=== PATIENT | female | born 1965 | race Caucasian/White ===

== ENCOUNTER 2017-05-05 11:32 | Inpatient (IN) | payer MEDICARE, OTHER ==
[~2017-05-05] VITALS: Ht 160 cm; Wt 75.0 kg
[~2017-05-05 11:32] MED LIST: AUG875 PO; CHOL20002 PO; LEVO25TA9 PO; MULT-853 PO; VITA400C15 PO
[2017-05-05] MEDS ORDERED: SOD CHLORIDE 0.9% 1,000 ML IV ONE (12:00)
[2017-05-05 12:10] LABS: ADD SCAN DIFF NO
[2017-05-05 12:13] LABS: BASOPHIL # 0.1 10^3/ul (0.0-0.1); BASOPHILS % 0.8 % (0.0-2.0); EOSINOPHILS # 0.2 10^3/ul (0.0-0.5); EOSINOPHILS % 2.6 % (0.0-7.0); HEMOGLOBIN 14.4 g/dl (12.0-16.0); LYMPHOCYTES # 1.2 10^3/ul (0.8-2.9); LYMPHOCYTES % 16.1 % (15.0-51.0); MEAN CORPUSCULAR HEMOGLOBIN 29.3 pg (29.0-33.0); MEAN CORPUSCULAR HGB CONC 34.3 g/dl (32.0-37.0); MEAN CORPUSCULAR VOLUME 85.4 fl (82.0-101.0); MEAN PLATELET VOLUME 10.6 fl (7.4-10.4); MONOCYTE # 0.5 10^3/ul (0.3-0.9); MONOCYTES % 7.2 % (0.0-11.0); NEUTROPHIL # 5.3 10^3/ul (1.6-7.5); NEUTROPHILS % 72.3 % (39.0-77.0); PLATELET COUNT 178 10^3/UL (140-415); RED BLOOD COUNT 4.92 10^6/ul (4.20-5.40); RED CELL DISTRIBUTION WIDTH 14.1 % (11.5-14.5); WHITE BLOOD COUNT 7.3 10^3/ul (4.8-10.8)
--- NOTE | 2017-05-05 12:25 | ERA ---
ER Documentation Chief Complaint Date/Time DATE: 05/05/17 TIME: 12:22 Chief Complaint SOB, ANXIOUS AND DIZZINESS STARTED TODAY HPI Patient is a 51-year-old female who presents with sudden onset, constant, moderate shortness of breath for 1 hour. The patient states that since Saturday she has had lightheadedness and dyspnea on exertion. She denies cough, fever, chest pain, back pain. She was noted to be breathing heavily in temple and was brought to the emergency department. ROS All systems reviewed and are negative except as per history of present illness. Medications Home Meds Reported Medications Levothyroxine Sodium* (Levothyroxine Sodium*) 75 Mcg Tablet, 75 MCG PO BEFORE BREAKFAST, #30 TAB 05/05/17 [Revlimid 5MG] No Conflict Check, 5 MG PO DAILY 05/05/17 Cholecalciferol (Vitamin D3) 400 Unit Tablet, 400 UNIT PO DAILY, TAB 05/05/17 Vitamin E* (Vitamin E*) 400 Unit Capsule, 400 UNIT PO DAILY, CAP 01/19/16 Discontinued Reported Medications Lenalidomide (REVLIMID) 2.5 Mg Capsule, 5 MG PO, CAP 05/05/17 Multivits-Min/Iron/FA/Lutein (Centrum Silver Women Tablet) 1 Each Tablet, 1 EACH PO DAILY, TAB 01/19/16 Cholecalciferol (Vitamin D3) (Vitamin D-3) 2,000 Unit Tablet, 2000 UNIT PO DAILY , TAB 01/19/16 Amoxicillin-Clavulanate K* (Augmentin*) 875 Mg Tab, 875 MG PO Q12 11/18/13 Levothyroxine Sodium (Levothroid) 25 Mcg Tablet, 25 MCG PO DAILY 11/17/13 Allergies Allergies: Coded Allergies: No Known Allergy (Unverified , 05/05/17) PMhx/Soc Past medical history: Unknown neck tumor Past surgical history: Resection of unknown neck tumor Social history: Denies tobacco or alcohol, lives in a intermediate History of Surgery: Yes (NECK SX) Anesthesia Reaction: No Hx Neurological Disorder: No Hx Respiratory Disorders: No Hx Cardiac Disorders: No Hx Psychiatric Problems: No Hx Miscellaneous Medical Probl: Yes (NECK CA) Hx Alcohol Use: No Hx Substance Use: No Hx Tobacco Use: No Smoking Status: Never smoker FmHx Family History: No coronary disease, No diabetes Physical Exam Vitals Vital Signs Date Time Temp Pulse Resp B/P Pulse Ox O2 Delivery O2 Flow Rate FiO2 05/05/17 12:45 101 20 93 Nasal Cannula 2.0 05/05/17 12:45 2.0 05/05/17 12:30 102 18 120/94 96 Nasal Cannula 3.0 05/05/17 12:03 Nasal Cannula 3 05/05/17 11:38 99.2 109 20 140/101 90 Physical Exam Const: Alert, no acute distress Head: Atraumatic Eyes: Normal Conjunctiva, no pallor, no icterus ENT: Normal External Ears, Nose and Mouth. Moist mucous membranes Neck: Full range of motion..~ No meningismus. No JVD Resp: Tachypnea, clear to auscultation bilaterally, no wheezes, no rales Cardio: Mild tachycardia, regular rhythm, no murmurs Abd: Soft, non tender, non distended. Skin: No petechiae or rashes Back: No midline or flank tenderness Ext: No cyanosis, or edema, no calf tenderness Neur: Awake and alert, cranial nerves II through XII intact bilaterally, strength and sensation full in 4 extremities Psych: Normal Mood and Affect Result Diagram: 05/05/17 1150 05/05/17 1150 Results 24 hrs Laboratory Tests Test 05/05/17 11:50 05/05/17 13:20 White Blood Count 7.310^3/ul Red Blood Count 4.9210^6/ul Hemoglobin 14.4g/dl Hematocrit 42.0% Mean Corpuscular Volume 85.4fl Mean Corpuscular Hemoglobin 29.3pg Mean Corpuscular Hemoglobin Concent 34.3g/dl Red Cell Distribution Width 14.1% Platelet Count 41646^3/UL Mean Platelet Volume 10.6fl Neutrophils % 72.3% Lymphocytes % 16.1% Monocytes % 7.2% Eosinophils % 2.6% Basophils % 0.8% Nucleated Red Blood Cells % 0.0/100WBC Neutrophils # 5.310^3/ul Lymphocytes # 1.210^3/ul Monocytes # 0.510^3/ul Eosinophils # 0.210^3/ul Basophils # 0.110^3/ul Nucleated Red Blood Cells # 0.010^3/ul Prothrombin Time 13.3Sec Prothrombin Time Ratio 1.0 INR International Normalized Ratio 1.01 Activated Partial Thromboplast Time 23.1Sec D-Dimer 3712.68ng/ml D-Dimer Comment Sodium Level 139mmol/L Potassium Level 3.7mmol/L Chloride Level 103mmol/L Carbon Dioxide Level 21mmol/L Anion Gap 19 Blood Urea Nitrogen 8mg/dl Creatinine 0.62mg/dl Glucose Level 193mg/dl Lactic Acid Level 4.6mmol/L Calcium Level 9.7mg/dl Total Bilirubin 1.0mg/dl Direct Bilirubin 0.00mg/dl Indirect Bilirubin 1.0mg/dl Aspartate Amino Transf (AST/SGOT) 64IU/L Alanine Aminotransferase (ALT/SGPT) 68IU/L Alkaline Phosphatase 110IU/L Troponin I 0.043ng/ml B-Type Natriuretic Peptide 1340PG/ML Total Protein 8.0g/dl Albumin 4.9g/dl Globulin 3.10g/dl Albumin/Globulin Ratio 1.58 Serum HCG, Qualitative NEGATIVE Urine Color YELLOW Urine Clarity SLIGHTLY CLOUDY Urine pH 5.0 Urine Specific [place] 1.012 Urine Ketones NEGATIVEmg/dL Urine Nitrite NEGATIVEmg/dL Urine Bilirubin NEGATIVEmg/dL Urine Urobilinogen NEGATIVEmg/dL Urine Leukocyte Esterase 1+Piyush/ul Urine Microscopic RBC 2/HPF Urine Microscopic WBC 9/HPF Urine Hemoglobin 1+mg/dL Urine Glucose NEGATIVEmg/dL Urine Total Protein NEGATIVEmg/dl Current Medications Medications (Trade) Dose Ordered Sig/Servando Route PRN Reason Start Time Stop Time Status Last Admin Dose Admin Sodium Chloride (NS) 1,000 ml @ 1,000 mls/hr Q1H ONCE IV 05/05/17 12:00 05/05/17 12:59 DC 05/05/17 11:55 Albuterol 5 mg 5 mg ONCE STAT HHN 05/05/17 12:28 05/05/17 12:29 DC 05/05/17 12:44 Iohexol 100 ml @ ud STK-MED ONCE .ROUTE 05/05/17 13:01 05/05/17 13:02 DC Sodium Chloride (NS) 250 ml @ ud STK-MED ONCE .ROUTE 05/05/17 13:01 05/05/17 13:02 DC Aspirin (Aspirin) 162 mg ONCE ONCE PO 05/05/17 13:30 05/05/17 13:31 DC 05/05/17 13:51 Enoxaparin Sodium (Lovenox) 75 mg ONCE SC 05/05/17 14:30 05/05/17 14:31 DC 05/05/17 14:09 Sodium Chloride 1300 ml 1,300 ml BOLUS OVER 2 HOURS STAT IV* 05/05/17 14:09 05/05/17 14:15 DC 05/05/17 14:17 Ceftriaxone Sodium (Rocephin) 50 ml @ 100 mls/hr ONCE STAT IVPB 05/05/17 14:09 05/05/17 14:38 DC 05/05/17 14:30 Ondansetron HCl (Zofran Inj) 4 mg ER BRIDGE PRN IV NAUSEA AND/OR VOMITING 05/05/17 14:30 05/06/17 14:29 Acetaminophen (Tylenol Tab) 650 mg ER BRIDGE PRN PO MILD PAIN/FEVER 05/05/17 14:30 05/06/17 14:29 Procedures/MDM EKG read by me: Time 1135, rate 112 Rhythm: Sinus tachycardia [place]: Right superior axis Intervals: Normal ST-T waves: T-wave flattening Ectopy: No Q-waves: No Impression: Tachycardia with irregular axis, no signs of ischemia. Poor R- wave progression MDM: Patient is a 51-year-old female who presents with acute shortness of breath. The patient was tachypneic and tachycardic with O2 sat in the high 80s on room air. She is placed on nasal cannula oxygen. D-dimer was elevated, and she had mild elevation of troponin and BNP. A CT pulmonary angiogram shows evidence of bilateral pulmonary emboli and possible lung mass concerning for cancer. Patient was given subcutaneous Lovenox for anticoagulation. The patient had an elevated lactic acid, and has a few leukocytes on her UA. She is afebrile, and her tachycardia and tachypnea are explainable by her pulmonary embolism. I do not believe that the elevated lactic acid is due to sepsis. I will, however, send blood and urine cultures and give the patient a dose of Rocephin for possible UTI. I have also ordered IV fluids. The patient will be admitted to monitored bed for further workup and treatment. Departure Diagnosis: Primary Impression: Pulmonary embolism Qualified Code: I26.99 - Other acute pulmonary embolism without acute cor pulmonale Additional Impressions: Hypoxemia Lung mass Condition: DEVANG Avila MD May 05, 2017 12:25
[2017-05-05] MEDS ORDERED: ALBUTEROL 0.083% (NEB) 2.5 MG/3 ML AMP HHN STA (12:28)
[2017-05-05 12:31] LABS: INR 1.01; PROTIME 13.3 Sec (12.2-14.2)
[2017-05-05 12:32] LABS: PARTIAL THROMBOPLASTIN TIME 23.1 Sec (25.0-35.0)
[2017-05-05 12:34] LABS: D-DIMER 3712.68 ng/ml (<460)
[2017-05-05 12:38] LABS: ALBUMIN 4.9 g/dl (3.3-4.9); ALBUMIN/GLOBULIN RATIO 1.58; CALCIUM 9.7 mg/dl (8.4-10.2); CREATININE 0.62 mg/dl (0.44-1.00); POTASSIUM 3.7 mmol/L (3.5-5.1)
[2017-05-05 12:49] LABS: TROPONIN-I 0.043 ng/ml (0.00-0.12)
[2017-05-05] MEDS ORDERED: CHOL400T8 PO (12:58)
[2017-05-05] MEDS ORDERED: LENA2.5C PO (13:00)
[2017-05-05] MEDS ORDERED: IOHEXOL 100 ML ONE (13:01)
[2017-05-05] MEDS ORDERED: SOD CHLORIDE 0.9% 250 ML ONE (13:01)
[2017-05-05] MEDS ORDERED: REVLIMID 5 MG PO (13:02)
[2017-05-05] MEDS ORDERED: LEVO75TA5 PO (13:05)
--- NOTE | 2017-05-05 13:23 | RADRPT ---
PROCEDURE: XR Chest AP portable CLINICAL INDICATION: Short of breath TECHNIQUE: An AP portable radiograph of the chest was submitted. COMPARISON: None. FINDINGS: Support Hardware: A right-sided Port-A-Cath is evident with the catheter tip within the superior devang a cava. Cardiovascular: The heart is normal in size, the the peripheral pulmonary vasculature unremarkable w all of the aorta appears atherosclerotic. Lung [place]: Air space opacification is seen focally within the right lower lung zone. Pleural Spaces: No pneumothorax or pleural effusion is identified. Osseous Structures: The osseous structures appear intact. Soft Tissues: The soft tissues appear generous. 2 surgical clips project to the right base of the ne ck. IMPRESSION: 1. A right-sided Port-A-Cath is satisfactorily positioned. 2. Focal alveolar infiltrate projects to the right lower lung zone. 3. Atherosclerotic aorta. 4. Surgical clips project through the right base of the neck. Physician Bibi Date Time Electronically viewed and signed by Physician Bibi on 05/05/2017 13:22 /
[2017-05-05] MEDS ORDERED: ASPIRIN 81 MG TAB PO ONE (13:30)
--- NOTE | 2017-05-05 13:55 | RADRPT ---
PROCEDURE: CTA Chest. CLINICAL INDICATION: SOB TECHNIQUE: The study was performed utilizing a multidetector CT scanner. Direct spiral 1 mm axial sections were obtained from the thoracic inlet to the upper abdomen with the use of 100 cc of Omnipa que 350 nonionic intravenous contrast material and reformatted at 3 mm. Coronal reformations were ob tained. The images were reviewed on a PACS workstation. CT D I 70 mCi. Dose 742 mCi per centimeter COMPARISON: No prior studies are available for comparison. FINDINGS: There is no saddle embolus. Noted is partially occlusive thrombus in the right main pulmonary arter y with near occlusive thrombus in the distal right pulmonary artery extending into the origins of th e right upper lobe, right lower lobe and right middle lobe branches. There is near occlusive thromb us in the segmental branches of the right lower lobe. Partially occlusive thrombus is seen in the d istal left pulmonary artery extending into the upper lobe and lower lobe pulmonary arteries and the proximal portion of the segmental branches. Thoracic aorta demonstrates mild calcification. No aneurysm or dissection is present. There is a 3.8 by 2.4 cm ovoid solid mass in the central right middle lobe. This is highly suspicio us for a primary lung cancer. No satellite nodules are seen. No other lung infiltrate or mass is p resent. No hilar or mediastinal adenopathy or mass is detected. There is a right IJ Port-A-Cath. No pleural or pericardial effusion is seen. There is no pneumothorax. Noted is the enlarged fatty liver. No adrenal mass is seen. There is a 5 mm cyst in the upper pole of the left kidney. No axillary, supraclavicular or internal mammary chain adenopathy is seen. The osseous structures are intact with no lytic or blastic lesions. IMPRESSION: Extensive bilateral acute pulmonary emboli. No saddle embolus. 3.8 x 2.4 cm mass right middle lobe highly suspicious for primary lung cancer. No evidence of metas tatic disease. Normal aorta with no dissection or aneurysm. .Luisito Burris MD, Date Time Electronically viewed and signed by .Luisito Burris MD, on 05/05/2017 13:54 .A/
[2017-05-05 14:04] LABS: ADD UMIC YES; UR ASCORBIC ACID NEGATIVE (NEGATIVE); UR BILIRUBIN (Dip) NEGATIVE (NEGATIVE); UR BLOOD (Dip) 1+ mg/dL (NEGATIVE); UR CLARITY SLIGHTLY CLOUDY (CLEAR); UR COLOR YELLOW (YELLOW); UR GLUCOSE (Dip) NEGATIVE (NEGATIVE); UR KETONES (Dip) NEGATIVE (NEGATIVE); UR LEUKOCYTE ESTERASE (Dip) 1+ Leu/ul (NEGATIVE); UR NITRITE (Dip) NEGATIVE (NEGATIVE); UR RBC 2 /HPF (0-5); UR SPECIFIC GRAVITY (Dip) 1.012 (1.003-1.030); UR TOTAL PROTEIN (Dip) NEGATIVE (NEGATIVE); UR UROBILINOGEN (Dip) NEGATIVE (NEGATIVE)
[2017-05-05] MEDS ORDERED: SODIUM CHLORIDE 0.9% 1L BAG IV* STA (14:09)
[2017-05-05] MEDS ORDERED: CEFTRIAXONE 1 GM/50 ML (PMX) 50 ML IVPB STA (14:09)
[2017-05-05] MEDS ORDERED: ONDANSETRON 4 MG INJ IV PRN ×2 (14:30→17:30)
[2017-05-05] MEDS ORDERED: ENOXAPARIN 80 MG/0.8 ML SYG SC SCH (14:30)
[2017-05-05] MEDS ORDERED: ACETAMINOPHEN 325 MG TAB PO PRN ×2 (14:30→17:30)
[2017-05-05 14:45] VITALS: TEMP 98.1
[2017-05-05] MEDS: SOD CHLORIDE 0.45% 1,000 ML IV SCH (17:11)
[2017-05-05] MEDS ORDERED: NITROGLYCERIN (SL) 0.4 MG TAB SL PRN (17:30)
[2017-05-05] MEDS ORDERED: MAGNESIUM HYDROXIDE 30ML CUP PO PRN (17:30)
[2017-05-05] MEDS ORDERED: NA PHOSPHATE/BIPHOS 133 ML ENEMA PR PRN (17:30)
[2017-05-05] MEDS ORDERED: HYDROCODONE/APAP (5/325) TAB PO PRN (17:30)
[2017-05-05] MEDS ORDERED: morphine 2 MG INJ IV PRN (17:30)
[2017-05-05] MEDS ORDERED: DOCUSATE SODIUM 100 MG CAP PO PRN (17:30)
[2017-05-05] MEDS ORDERED: NACL 0.9% 3 ML SYG IV SCH (17:30)
[2017-05-05] MEDS ORDERED: VANCOMYCIN IV PER PHARMACY XX SCH (17:30)
[2017-05-05] MEDS ORDERED: ALBUTEROL/IPRATROPIUM (NEB) 3 ML AMP HHN PRN (17:30)
[2017-05-05] MEDS ORDERED: LORAZEPAM 0.5 MG TAB PO PRN (17:30)
[2017-05-05] MEDS ORDERED: hydrALAzine 20 MG INJ IV PRN (17:30)
[2017-05-05] MEDS: PIPER-TAZO 3.375 GM IV (PMX) 100 ML IVPB SCH ×2 (18:06→23:51)
[2017-05-05] MEDS: LENALIDOMIDE 5 MG XX SCH (18:27)
[2017-05-05] MEDS: [UNRECOGNIZED DRUG - OTHER] XX SCH (18:27)
[2017-05-05] MEDS ORDERED: VANCOMYCIN 1.5 GM in SOD CHLORIDE 0.9% 250 ML IVPB SCH (18:30)
[2017-05-05 19:21] LABS: INR 1.11; PROTIME 14.3 Sec (12.2-14.2); PT RATIO 1.1
[2017-05-05] MEDS: ENOXAPARIN 80 MG/0.8 ML SYG SC SCH (20:19)
--- NOTE | 2017-05-05 21:09 | HP ---
DATE OF ADMISSION: 05/05/2017 IDENTIFICATION: This is a 51-year-old female. CHIEF COMPLAINT: Shortness of breath and anxiousness. HISTORY OF PRESENT ILLNESS: A 51-year-old female, past medical history of neck tumor, status post n kevin surgery in the past and possible cognitive delay who states that she developed sudden onset of s hortness of breath early this morning. The shortness of breath seemed to last for about an hour. A pparently she had had some lightheadedness and dyspnea symptoms on exertion a few days prior but no fevers or chills, no palpitations or chest pain, no low back pain, no upper or lower GI bleeding, no nausea or vomiting. Apparently she was brought in from [facility] to the emergency room via EMS, and w hen she came in, she had imaging study performed including CTA that showed extensive bilateral acute pulmonary emboli and also a 3.8 x 2.4 cm mass in the right middle lobe highly suspicious for primar y lung cancer, no evidence of metastatic disease, a normal aorta with no dissection or aneurysm. PAST MEDICAL HISTORY: Stated above. ALLERGIES: NO KNOWN DRUG ALLERGIES. HOME MEDICATIONS: Include: 1. Levothyroxine 75 mcg before breakfast. 2. Vitamin D3 400 units daily. 3. Vitamin E 400 units daily. 4. Revlimid 5 mg daily. PAST SURGICAL HISTORY: Neck surgery in the past for cancer. SOCIAL HISTORY: Negative for smoking, drinking or IV drug abuse. FAMILY HISTORY: Noncontributory. VITAL SIGNS: T-max 99.2, pulse of 101 to 109, respirations 18 to 20, blood pressure is 120 to 140 s ystolic over 94 to 101 diastolic, saturating at 90% to 96% on nasal cannula 3 L. PHYSICAL EXAMINATION: GENERAL: The patient is lying in bed, answering questions appropriately. No acute distress. HEENT: Pupils equal, round, react to light. Extraocular muscles intact. NECK: Slightly enlarged. Surgical scar noted on the right side of the neck, otherwise supple. LUNGS: Clear to auscultation bilaterally. No wheezes. CARDIOVASCULAR: Tachycardic heart rate but regular. No rubs or gallops. ABDOMEN: Soft, nontender, nondistended. Normal bowel sounds. No rebound or guarding. MUSCULOSKELETAL: No lower extremity edema bilaterally. NEUROLOGIC: No focal deficits. LABORATORIES: CBC is normal. Comprehensive metabolic panel is normal. The BNP is 1340. Troponin is negative x1. Lactic acid, interestingly, was elevated at 4.6. IMAGING: We talked about the CTA results. A CT chest shows a right-sided Port-A-Cath in place, foc al alveolar infiltrate projects into the right lower lung zone, atherosclerotic aorta, surgical clip s project through the right neck at ____ base of the neck. ASSESSMENT AND PLAN: A 51-year-old female coming in with sudden shortness of breath symptoms with s igns of pulmonary embolism with a prior history of neck cancer and also with new finding of right gian ng mass. 1. Shortness of breath. Again, secondary to pulmonary embolism. Will admit the patient to telemet ry floor, put her on IV fluids, Lovenox 1 mg/kg subQ b.i.d., get a hematology/oncology consult as we ll given the fact of the neck cancer and the new lung mass. Check TSH, A1c, lipid panel. Consider PT consult. Give her IV fluids, antiemetic medicines, pain control medications. 2. Lactic acidosis, unclear source. Signs of possible sepsis. Continue broad-spectrum antibiotics although there is no leukocytosis, no fevers. Consider ____ cultures as well and trend the lactic acid. Check labs in the morning, CBC, basic metabolic panel, lactic acid as well. 3. Questionable history of thyroid issues. Check thyroid panel, continue levothyroxine. 4. Gastrointestinal prophylaxis. PPI. 5. Deep venous thrombosis prophylaxis. She will be on Lovenox again. Dictated By: MANJINDER CRABTREE Conf#: [id number] DID#: [id number]
--- NOTE | 2017-05-05 21:40 | CONS ---
Date/Time of Note Date/Time of Note DATE: 05/05/17 TIME: 21:29 Assessment/Plan Assessment/Plan Chief Complaint/Hosp Course Extensive bilateral acute pulmonary emboli. No saddle embolus. Lovenox 1 mg/kg subQ b.i.d 3.8 x 2.4 cm mass right middle lobe highly suspicious for primary lung cancer. No evidence of metastatic disease in the chest complete staging with CT ABD PULM EVAL MASS BX HOLD LOVENOX PREOP TO BX Shortness of breath. secondary to pulmonary embolism. 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 OBTAIN AND REVIEW OLD RECORD Lactic acidosis, unclear source. Signs of possible sepsis. Continue broad-spectrum antibiotics Questionable history of thyroid issues. Check thyroid panel, continue levothyroxine. Gastrointestinal prophylaxis. PPI. Deep venous thrombosis prophylaxis. Lovenox INCOMPLETE RECORD Problems: Consultation Date/Type/Reason Admit Date/Time 05/05/17 Date of Consultation: May 05, 2017 Type of Consultation: hemeonc Reason for Consultation hx H/N cancer PE LUNG MASS Referring Provider: MANJINDER HOWELL Hx of Present Illness A 51-year-old female, past medical history of neck tumor, status post neck surgery in the past and possible cognitive delay who states that she developed sudden onset of shortness of breath early this morning. The shortness of breath seemed to last for about an hour. Apparently she had had some lightheadedness and dyspnea symptoms on exertion a few days prior but no fevers or chills, no palpitations or chest pain, no low back pain, no upper or lower GI bleeding, no nausea or vomiting. Apparently she was brought in from [facility] to the emergency room via EMS, and when she came in, she had imaging study performed including CTA that showed extensive bilateral acute pulmonary emboli and also a 3.8 x 2.4 cm mass in the right middle lobe highly suspicious for primary lung cancer, no evidence of metastatic disease, a normal aorta with no dissection or aneurysm. PAST MEDICAL HISTORY: Stated above. 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 ALLERGIES: NO KNOWN DRUG ALLERGIES. HOME MEDICATIONS: Include: 1. Levothyroxine 75 mcg before breakfast. 2. Vitamin D3 400 units daily. 3. Vitamin E 400 units daily. 4. Revlimid 5 mg daily. PAST SURGICAL HISTORY: Neck surgery in the past for cancer. SOCIAL HISTORY: Negative for smoking, drinking or IV drug abuse. FAMILY HISTORY: Noncontributory. Social History Smoking Status: Never smoker Exam/Review of Systems Vital Signs Vitals Vital Signs Date Time Temp Pulse Resp B/P Pulse Ox O2 Delivery O2 Flow Rate FiO2 05/05/17 21:10 80 30 122/90 93 Nasal Cannula 05/05/17 14:45 98.1 3.0 Exam GENERAL: The patient is lying in bed, answering questions appropriately. No acute distress. HEENT: Pupils equal, round, react to light. Extraocular muscles intact. NECK: Slightly enlarged. Surgical scar noted on the right side of the neck, otherwise supple. LUNGS: Clear to auscultation bilaterally. No wheezes. CARDIOVASCULAR: Tachycardic heart rate but regular. No rubs or gallops. ABDOMEN: Soft, nontender, nondistended. Normal bowel sounds. No rebound or guarding. MUSCULOSKELETAL: No lower extremity edema bilaterally. NEUROLOGIC: No focal deficits. Results Result Diagram: 05/05/17 1150 05/05/17 1150 Results 24 hrs Laboratory Tests Test 05/05/17 11:50 05/05/17 13:20 05/05/17 14:20 05/05/17 16:20 White Blood Count 7.3 Red Blood Count 4.92 Hemoglobin 14.4 Hematocrit 42.0 Mean Corpuscular Volume 85.4 Mean Corpuscular Hemoglobin 29.3 Mean Corpuscular Hemoglobin Concent 34.3 Red Cell Distribution Width 14.1 Platelet Count 178 Mean Platelet Volume 10.6 H Neutrophils % 72.3 Lymphocytes % 16.1 Monocytes % 7.2 Eosinophils % 2.6 Basophils % 0.8 Nucleated Red Blood Cells % 0.0 Neutrophils # 5.3 Lymphocytes # 1.2 Monocytes # 0.5 Eosinophils # 0.2 Basophils # 0.1 Nucleated Red Blood Cells # 0.0 Prothrombin Time 13.3 Prothrombin Time Ratio 1.0 INR International Normalized Ratio 1.01 Activated Partial Thromboplast Time 23.1 L D-Dimer 3712.68 H D-Dimer Comment Sodium Level 139 Potassium Level 3.7 Chloride Level 103 Carbon Dioxide Level 21 Anion Gap 19 H Blood Urea Nitrogen 8 Creatinine 0.62 Glucose Level 193 Lactic Acid Level 4.6 *H 4.7 *H 3.0 H Calcium Level 9.7 Total Bilirubin 1.0 Direct Bilirubin 0.00 Indirect Bilirubin 1.0 Aspartate Amino Transf (AST/SGOT) 64 H Alanine Aminotransferase (ALT/SGPT) 68 Alkaline Phosphatase 110 Troponin I 0.043 B-Type Natriuretic Peptide 1340 H Total Protein 8.0 Albumin 4.9 Globulin 3.10 Albumin/Globulin Ratio 1.58 Serum HCG, Qualitative NEGATIVE Urine Color YELLOW Urine Clarity SLIGHTLY CLOUDY A Urine pH 5.0 Urine Specific [place] 1.012 Urine Ketones NEGATIVE Urine Nitrite NEGATIVE Urine Bilirubin NEGATIVE Urine Urobilinogen NEGATIVE Urine Leukocyte Esterase 1+ H Urine Microscopic RBC 2 Urine Microscopic WBC 9 H Urine Hemoglobin 1+ H Urine Glucose NEGATIVE Urine Total Protein NEGATIVE Test 05/05/17 18:00 05/05/17 18:20 Lactic Acid Level 3.1 H Prothrombin Time 14.3 H Prothrombin Time Ratio 1.1 INR International Normalized Ratio 1.11 Activated Partial Thromboplast Time 23.0 L Free Thyroxine 1.38 Medications Medications Current Medications Ondansetron HCl (Zofran Inj) 4 mg Q6H PRN IV NAUSEA AND/OR VOMITING; Start at 17:30 Acetaminophen (Tylenol Tab) 650 mg Q6H PRN PO PAIN LEVEL 1-3 OR FEVER; Start at 17:30 Acetaminophen/ Hydrocodone Bitart ([place] (5/325)) 1 tab Q6H PRN PO MODERATE PAIN LEVEL 4-6; Start 05/05/17 at 17:30 Morphine Sulfate (morphine) 2 mg Q4H PRN IV SEVERE PAIN LEVEL 7-10; Start 05/05 at 17:30 Docusate Sodium (Colace) 100 mg Q12H PRN PO CONSTIPATION; Start 05/05/17 at 17: 30 Magnesium Hydroxide (Milk Of Mag) 30 ml DAILY PRN PO CONSTIPATION; Start at 17:30 Sodium Biphosphate/ Sodium Phosphate (Fleet Enema) 133 ml DAILY PRN [place] CONSTIPATION; Start 05/05/17 at 17:30 Pantoprazole 40 mg 40 mg DAILY@06 PO ; Start 05/06/17 at 06:00 Sodium Chloride (1/2 NS) 1,000 ml @ 75 mls/hr [id number] IV Last administered on 05/05/17t 17:11; Admin Dose 75 MLS/HR; Start 05/05/17 at 17:11 Lorazepam 0.5 mg 0.5 mg Q6H PRN PO ANXIETY; Start 05/05/17 at 17:30 Piperacillin Sod/ Tazobactam Sod (Zosyn 3.375gm/ 100 ml (Pmx)) 100 ml @ 200 mls /hr Q6 IVPB Last administered on 05/05/17 18:06; Admin Dose 200 MLS/HR; Start 05/05/17 at 18:00 Vancomycin HCl (Vanco Iv Per Pharmacy) VANCOMYCIN PER PHARMACY NOTE XX ; Start 05/05/17 at 17:30 Hydralazine HCl (Apresoline) 10 mg Q6H PRN IV ELEVATED BLOOD PRESSURE; Start at 17:30 Nitroglycerin (Nitroglycerin (Sl Tab) 0.4 Mg) 1 tab Q5M PRN SL ANGINA; Start at 17:30 Cholecalciferol (Vitamin D) 400 units DAILY PO ; Start 05/06/17 at 09:00 Vitamin E (Vitamin E) 400 units DAILY PO ; Start 05/06/17 at 09:00 Miscellaneous Information 5 mg DAILY PO ; Start 05/06/17 at 09:00; Status UNV Enoxaparin Sodium 75 mg 75 mg Q12 SC Last administered on 05/05/17 20:19; Admin Dose 75 MG; Start 05/05/17 at 21:00 Vancomycin HCl 1.5 gm/Sodium Chloride 250 ml @ 83.333 mls/ hr NOW IVPB Last administered on 05/05/17 19:10; Admin Dose 83.333 MLS/HR; Start 05/05/17 at 18: 30; Stop 05/05/17 at 21:29 Vancomycin HCl (Vancocin) 250 ml @ 125 mls/hr Q12H IVPB ; Start 05/06/17 at 05: 00 Miscellaneous Information (*Order Clarification Bulletin) Revlimid 5MG] 5 MG: PLEASE ASK FAMILY... Q8H XX Last administered on 05/05/17 18:27; Admin Dose 1 EA; Start 05/05/17 at 18:00 Procedures Procedures [address] [address] Radiology Main Line: [phone] DIAGNOSTIC IMAGING REPORT Patient: TIFFANIE NUNN : 1965 Age: 51 Sex: F [id number] DOS: 05/05/17 1144 Ordering MD: DEVANG BETHEA MD Location: E/R Room/Bed: PROCEDURE: CTA Chest. CLINICAL INDICATION: SOB TECHNIQUE: The study was performed utilizing a multidetector CT scanner. Direct spiral 1 mm axial sections were obtained from the thoracic inlet to the upper abdomen with the use of 100 cc of Omnipaque 350 nonionic intravenous contrast material and reformatted at 3 mm. Coronal reformations were obtained. The images were reviewed on a PACS workstation. CT D I 70 mCi. Dose 742 mCi per centimeter COMPARISON: No prior studies are available for comparison. FINDINGS: There is no saddle embolus. Noted is partially occlusive thrombus in the right main pulmonary artery with near occlusive thrombus in the distal right pulmonary artery extending into the origins of the right upper lobe, right lower lobe and right middle lobe branches. There is near occlusive thrombus in the segmental branches of the right lower lobe. Partially occlusive thrombus is seen in the distal left pulmonary artery extending into the upper lobe and lower lobe pulmonary arteries and the proximal portion of the segmental branches. Thoracic aorta demonstrates mild calcification. No aneurysm or dissection is present. There is a 3.8 by 2.4 cm ovoid solid mass in the central right middle lobe. This is highly suspicious for a primary lung cancer. No satellite nodules are seen. No other lung infiltrate or mass is present. No hilar or mediastinal adenopathy or mass is detected. There is a right IJ Port-A-Cath. No pleural or pericardial effusion is seen. There is no pneumothorax. Noted is the enlarged fatty liver. No adrenal mass is seen. There is a 5 mm cyst in the upper pole of the left kidney. No axillary, supraclavicular or internal mammary chain adenopathy is seen. The osseous structures are intact with no lytic or blastic lesions. IMPRESSION: Extensive bilateral acute pulmonary emboli. No saddle embolus. 3.8 x 2.4 cm mass right middle lobe highly suspicious for primary lung cancer. No evidence of metastatic disease. Normal aorta with no dissection or aneurysm. .Luisito Burris MD, MD Date Time Electronically viewed and signed by .Luisito Burris MD, on 05/05/2017 13: 54 .A/ CC: DEVANG BETHEA MD, VERA M MD May 05, 2017 21:39
[2017-05-06] MEDS: LENALIDOMIDE 5 MG XX SCH ×3 (01:50→18:00)
[2017-05-06] MEDS: [UNRECOGNIZED DRUG - OTHER] XX SCH ×3 (01:50→18:00)
[2017-05-06] MEDS: VANCOMYCIN 1 GM in NS 250 ML IVPB SCH ×2 (04:16→16:33)
[2017-05-06 05:49] LABS: ADD SCAN DIFF NO
[2017-05-06 05:53] LABS: BASOPHIL # 0.1 10^3/ul (0.0-0.1); BASOPHILS % 1.1 % (0.0-2.0); EOSINOPHILS # 0.3 10^3/ul (0.0-0.5); EOSINOPHILS % 4.8 % (0.0-7.0); HEMATOCRIT 38.2 % (37.0-47.0); HEMOGLOBIN 12.7 g/dl (12.0-16.0); LYMPHOCYTES # 0.9 10^3/ul (0.8-2.9); MEAN CORPUSCULAR HEMOGLOBIN 29.1 pg (29.0-33.0); MEAN CORPUSCULAR HGB CONC 33.2 g/dl (32.0-37.0); MEAN CORPUSCULAR VOLUME 87.4 fl (82.0-101.0); MEAN PLATELET VOLUME 10.6 fl (7.4-10.4); MONOCYTE # 0.3 10^3/ul (0.3-0.9); MONOCYTES % 6.1 % (0.0-11.0); NEUTROPHIL # 3.9 10^3/ul (1.6-7.5); NEUTROPHILS % 71.3 % (39.0-77.0); PLATELET COUNT 151 10^3/UL (140-415); RED BLOOD COUNT 4.37 10^6/ul (4.20-5.40); RED CELL DISTRIBUTION WIDTH 14.7 % (11.5-14.5); WHITE BLOOD COUNT 5.4 10^3/ul (4.8-10.8)
[2017-05-06 06:20] LABS: CALCIUM 9.6 mg/dl (8.4-10.2); CREATININE 0.64 mg/dl (0.44-1.00); MAGNESIUM 2.1 mg/dl (1.7-2.5); PHOSPHORUS 3.9 mg/dl (2.5-4.9); POTASSIUM 4.3 mmol/L (3.5-5.1)
[2017-05-06 06:23] LABS: CHOL/HDL RATIO 4.9 RATIO
[2017-05-06 06:45] LABS: THYROID STIMULATING HORMONE 7.74 MIU/L (0.465-4.680)
[2017-05-06] MEDS: PANTOPRAZOLE (EC) 40 MG TAB PO SCH (07:02)
[2017-05-06] MEDS: SOD CHLORIDE 0.45% 1,000 ML IV SCH ×2 (07:03→22:42)
[2017-05-06] MEDS: PIPER-TAZO 3.375 GM IV (PMX) 100 ML IVPB SCH ×3 (07:03→18:52)
[2017-05-06] MEDS: CHOLECALCIFEROL 400 UNITS TAB PO SCH (08:12)
[2017-05-06] MEDS: LEVOTHYROXINE 75 MCG TAB PO SCH (08:12)
[2017-05-06] MEDS: VITAMIN E 400 UNITS CAP PO SCH (08:12)
[2017-05-06] MEDS: ENOXAPARIN 80 MG/0.8 ML SYG SC SCH ×2 (08:13→22:34)
[2017-05-06] MEDS ORDERED: REVLIMID 5 MG PO SCH (09:00)
--- NOTE | 2017-05-06 12:31 | PN ---
Date/Time of Note Date/Time of Note DATE: 05/06/17 TIME: 12:22 Assessment/Plan VTE Prophylaxis VTE Prophylaxis Intervention: LMWH (full dose) Assessment/Plan Assessment/Plan 51-year-old male who presented with sudden shortness of breath now managed for the followin. Acute shortness of breath secondary to #2 : improved 2. Extensive bilateral acute pulmonary emboli 3. Right middle lobe mass suspicious for primary lung cancer without evidence of metastatic disease 4. History of head and neck cancer/right parotid gland mass status post parotidectomy 2013. 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 Hypothyroidism: still with suboptimal control. ?prev TSH 6. Lactic acidosis likely secondary to respiratory insufficiency 7. Prediabetes with hemoglobin A1c of 6.2 8. Dyslipidemia PLAN: Continue treatment dose Lovenox / home revlimid / appreciate oncology review Patient is planned for biopsy of lung mass Obtain previous records from head and neck cancer Continue gentle IV hydration and trend lactic acid levels Diabetic diet with sliding scale insulin Low-dose statin/aspirin therapy Continue supportive care Subjective 24 Hr Interval Summary Constitutional: improved, no complaints Exam/Review of Systems Vital Signs Vitals Vital Signs Date Time Temp Pulse Resp B/P Pulse Ox O2 Delivery O2 Flow Rate FiO2 05/06/17 11:53 99 22 143/108 90 Nasal Cannula 3.0 05/05/17 14:45 98.1 Intake and Output 05/05/17 05/05/17 05/06/17 14:59 22:59 06:59 Intake Total 1000 ml Balance 1000 ml Exam GENERAL: The patient is lying in bed, answering questions appropriately. No acute distress. HEENT: Pupils equal, round, react to light. Extraocular muscles intact. NECK: Slightly enlarged. Surgical scar noted on the right side of the neck, otherwise supple. LUNGS: Clear to auscultation bilaterally. No wheezes. CARDIOVASCULAR: Tachycardic heart rate but regular. No rubs or gallops. ABDOMEN: Soft, nontender, nondistended. Normal bowel sounds. No rebound or guarding. MUSCULOSKELETAL: No lower extremity edema bilaterally. NEUROLOGIC: No focal deficits. Results Result Diagram: 05/06/17 0520 05/06/17 0420 Results 24 hrs Laboratory Tests Test 05/05/17 13:20 05/05/17 14:20 05/05/17 16:20 05/05/17 18:00 Urine Color YELLOW Urine Clarity SLIGHTLY CLOUDY A Urine pH 5.0 Urine Specific [employer] 1.012 Urine Ketones NEGATIVE Urine Nitrite NEGATIVE Urine Bilirubin NEGATIVE Urine Urobilinogen NEGATIVE Urine Leukocyte Esterase 1+ H Urine Microscopic RBC 2 Urine Microscopic WBC 9 H Urine Hemoglobin 1+ H Urine Glucose NEGATIVE Urine Total Protein NEGATIVE Lactic Acid Level 4.7 *H 3.0 H 3.1 H Test 05/05/17 18:20 05/06/17 00:26 05/06/17 04:20 05/06/17 05:20 Prothrombin Time 14.3 H Prothrombin Time Ratio 1.1 INR International Normalized Ratio 1.11 Activated Partial Thromboplast Time 23.0 L Lactate Dehydrogenase 479 Free Thyroxine 1.38 Lactic Acid Level 3.5 H Sodium Level 143 Potassium Level 4.3 Chloride Level 110 Carbon Dioxide Level 21 Anion Gap 16 Blood Urea Nitrogen 8 Creatinine 0.64 Glucose Level 121 # Calcium Level 9.6 Phosphorus Level 3.9 Magnesium Level 2.1 White Blood Count 5.4 # Red Blood Count 4.37 Hemoglobin 12.7 Hematocrit 38.2 Mean Corpuscular Volume 87.4 Mean Corpuscular Hemoglobin 29.1 Mean Corpuscular Hemoglobin Concent 33.2 Red Cell Distribution Width 14.7 H Platelet Count 151 Mean Platelet Volume 10.6 H Neutrophils % 71.3 Lymphocytes % 16.0 Monocytes % 6.1 Eosinophils % 4.8 Basophils % 1.1 Nucleated Red Blood Cells % 0.0 Neutrophils # 3.9 Lymphocytes # 0.9 Monocytes # 0.3 Eosinophils # 0.3 Basophils # 0.1 Nucleated Red Blood Cells # 0.0 Hemoglobin A1c 6.2 H Triglycerides Level 207 H Cholesterol Level 129 LDL Cholesterol, Calculated 62 HDL Cholesterol 26 L Cholesterol/HDL Ratio 4.9 Thyroid Stimulating Hormone (TSH) 7.740 H Test 05/06/17 05:40 Lactic Acid Level 3.1 H Medications Medications Current Medications Ondansetron HCl (Zofran Inj) 4 mg Q6H PRN IV NAUSEA AND/OR VOMITING; Start at 17:30 Acetaminophen (Tylenol Tab) 650 mg Q6H PRN PO PAIN LEVEL 1-3 OR FEVER; Start at 17:30 Acetaminophen/ Hydrocodone Bitart ([place] (5/325)) 1 tab Q6H PRN PO MODERATE PAIN LEVEL 4-6; Start 05/05/17 at 17:30 Morphine Sulfate (morphine) 2 mg Q4H PRN IV SEVERE PAIN LEVEL 7-10; Start 05/05 at 17:30 Docusate Sodium (Colace) 100 mg Q12H PRN PO CONSTIPATION; Start 05/05/17 at 17: 30 Magnesium Hydroxide (Milk Of Mag) 30 ml DAILY PRN PO CONSTIPATION; Start at 17:30 Sodium Biphosphate/ Sodium Phosphate (Fleet Enema) 133 ml DAILY PRN [place] CONSTIPATION; Start 05/05/17 at 17:30 Pantoprazole 40 mg 40 mg DAILY@06 PO Last administered on 05/06/17 07:02; Admin Dose 40 MG; Start 05/06/17 at 06:00 Sodium Chloride (1/2 NS) 1,000 ml @ 75 mls/hr [id number] IV Last administered on 05/06/17 07:03; Admin Dose 75 MLS/HR; Start 05/05/17 at 17:11 Lorazepam 0.5 mg 0.5 mg Q6H PRN PO ANXIETY; Start 05/05/17 at 17:30 Piperacillin Sod/ Tazobactam Sod (Zosyn 3.375gm/ 100 ml (Pmx)) 100 ml @ 200 mls /hr Q6 IVPB Last administered on 05/06/17 11:23; Admin Dose 200 MLS/HR; Start 05/05/17 at 18:00 Vancomycin HCl (Vanco Iv Per Pharmacy) VANCOMYCIN PER PHARMACY NOTE XX ; Start 05/05/17 at 17:30 Hydralazine HCl (Apresoline) 10 mg Q6H PRN IV ELEVATED BLOOD PRESSURE; Start at 17:30 Nitroglycerin (Nitroglycerin (Sl Tab) 0.4 Mg) 1 tab Q5M PRN SL ANGINA; Start at 17:30 Cholecalciferol (Vitamin D) 400 units DAILY PO Last administered on 05/06/17 08:12; Admin Dose 400 UNITS; Start 05/06/17 at 09:00 Vitamin E (Vitamin E) 400 units DAILY PO Last administered on 05/06/17 08:12; Admin Dose 400 UNITS; Start 05/06/17 at 09:00 Miscellaneous Information 5 mg DAILY PO ; Start 05/06/17 at 09:00; Status UNV Enoxaparin Sodium 75 mg 75 mg Q12 SC Last administered on 05/06/17 08:13; Admin Dose 75 MG; Start 05/05/17 at 21:00 Vancomycin HCl (Vancocin) 250 ml @ 125 mls/hr Q12H IVPB Last administered on 04:16; Admin Dose 125 MLS/HR; Start 05/06/17 at 05:00 Miscellaneous Information (*Order Clarification Bulletin) Revlimid 5MG] 5 MG: PLEASE ASK FAMILY... Q8H XX Last administered on 05/05/17 18:27; Admin Dose 1 EA; Start 05/05/17 at 18:00 Miscellaneous Information (*Rx Drug Level Order Reminder*) VANCO TROUGH @ 0, 400 ON... ONCE ONCE XX ; Start 05/07/17 at 04:00; Stop 05/07/17 at 04:01 JJ BAE May 06, 2017 12:30
[2017-05-06] MEDS ORDERED: DEXTROSE 50% 50 ML SYRINGE IV PRN ×2 (14:30)
[2017-05-06] MEDS ORDERED: GLUCAGON 1 MG INJ IM PRN (14:30)
[2017-05-06] MEDS ORDERED: GLUCOSE GEL 15 GRAM TUBE PO PRN ×2 (14:30)
[2017-05-06] MEDS ORDERED: GLUCOSE GEL 15 GRAM TUBE BUCCAL PRN (14:30)
--- NOTE | 2017-05-06 15:39 | RADRPT ---
Echocardiogram Report Patient Name: TIFFANIE NUNN Gender: Female Date: 1965 Study Date: 06-May-2017 Bulk Receiver: [facility] Location: [facility] Ref. Physician: MANJINDER HOWELL Quality: Technically Difficult Study Procedures: Transthoracic echocardiogram with complete 2D, M-Mode, and doppler examination. Indications: Pulmonary embolism. 2D/M Mode Doppler Measurement Value Normal Ranges Measurement Value Normal Ranges LVIDd 2D 4.3 3.5 - 5.6 cm AV Peak Fawad 1.1 m/sec LVIDs 2D 3.1 2.1 - 4.1 cm AV Peak PG 4.8 mmHg LVPWd 2D 1.0 0.6 - 1.1 cm LVOT Peak Fawad 0.8 m/sec IVSd 2D 1.0 0.6 - 1.1 cm LVOT Peak PG 2.7 mmHg AoR Diam 2D 3.1 2.0 - 3.7 cm MV E Peak Fawad 0.7 m/sec EDV 2D 81.9 cm3 MV A Peak [place]awad 0.9 m/sec ESV 2D 29.7 cm3 MV E/A 0.8 LA Dimen 2D 2.8 2.3 - 4.0 cm MV Decel Time 118 msec MV Decel [place] 6 MV E/A 0.8 TR Peak Fawad 3.1 m/sec TR Peak PG 37.8 mmHg RVSP 39.0 mmHg Findings Left Ventricle: Normal left ventricular systolic function. Normal left ventricular cavity size. Normal left ventricular wall thickness. Ejection fraction is visually estimated at 6065 %. Tissue Doppler/Mitral Doppler indices are consistent with impaired relaxation (Stage I diastolic dysfunction). Right Ventricle: Mild enlargement of right ventricle. Mild right ventricular hypokinesis. Left Atrium: The left atrium is normal in size. Right Atrium: The right atrium is normal in size. Mitral Valve: Mild mitral leaflet calcification. Mild mitral annular calcification. Trace mitral regurgitation. Aortic Valve: Normal appearance of the aortic valve. No significant aortic stenosis or insufficiency. Tricuspid Valve: Normal appearance of the tricuspid valve. Estimated peak PA systolic pressure 39 mmHg. There is mild tricuspid regurgitation. Pulmonic Valve: Pulmonic valve not well visualized. There is trace pulmonic regurgitation. Pericardium: Normal pericardium with no significant pericardial effusion. Aorta: Normal aortic root. IVC: Normal size and normal respiratory collapse consistent with normal right atrial pressure. Conclusions 1.The left ventricle is normal in size and systolic function. 2.Estimated left ventricular ejection fraction of 60-65%. 3.Grade 1 diastolic dysfunction. 4.The right ventricle is mildly enlarged with mild hypokinesis. 5.Estimated RVSP of 39 mmHg. Electronically Signed By: Wesly Arcos 06-May-2017 15:38:34 -0700 Patient Name: TIFFANIE NUNN Study Date: 06-May-2017 [id number]
[2017-05-06] MEDS: ALBUTEROL/IPRATROPIUM (NEB) 3 ML AMP HHN SCH ×2 (18:00→21:38)
[2017-05-06] MEDS: INSULIN ASPART [NOVOLOG] 3 ML PEN SC SCH ×2 (19:11→21:00)
[2017-05-06 19:37] VITALS: PULSE 110
[2017-05-06 20:12] VITALS: BP 145/90; RESP 21
[2017-05-06 20:17] VITALS: PULSE 110
--- NOTE | 2017-05-06 21:33 | CONS ---
Date/Time of Note Date/Time of Note DATE: 05/06/17 TIME: 21:31 Assessment/Plan Assessment/Plan Chief Complaint/Hosp Course Extensive bilateral acute pulmonary emboli. No saddle embolus. Lovenox 1 mg/kg subQ b.i.d 3.8 x 2.4 cm mass right middle lobe highly suspicious for primary lung cancer. No evidence of metastatic disease in the chest complete staging with CT ABD PULM EVAL MASS BX HOLD LOVENOX PREOP TO BX Shortness of breath. secondary to pulmonary embolism. 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 OBTAIN AND REVIEW OLD RECORD Lactic acidosis, unclear source. Signs of possible sepsis. Continue broad-spectrum antibiotics Questionable history of thyroid issues. Check thyroid panel, continue levothyroxine. Gastrointestinal prophylaxis. PPI. Deep venous thrombosis prophylaxis. Lovenox INCOMPLETE RECORD Problems: Consultation Date/Type/Reason Admit Date/Time May 06, 2017 at 14:11 Initial Consult Date 05/05/17 Type of Consultation: [facility] Referring Provider: MANJINDER HOWELL 24 HR Interval Summary Free Text/Dictation all noted on LOVENOX Exam/Review of Systems Vital Signs Vitals Vital Signs Date Time Temp Pulse Resp B/P Pulse Ox O2 Delivery O2 Flow Rate FiO2 05/06/17 20:12 98.3 109 21 145/90 92 05/06/17 19:12 Nasal Cannula 4.0 Intake and Output 05/05/17 05/05/17 05/06/17 15:00 23:00 07:00 Intake Total 1000 ml Balance 1000 ml Exam GENERAL: The patient is lying in bed, answering questions appropriately. No acute distress. HEENT: Pupils equal, round, react to light. Extraocular muscles intact. NECK: Slightly enlarged. Surgical scar noted on the right side of the neck, otherwise supple. LUNGS: Clear to auscultation bilaterally. No wheezes. CARDIOVASCULAR: Tachycardic heart rate but regular. No rubs or gallops. ABDOMEN: Soft, nontender, nondistended. Normal bowel sounds. No rebound or guarding. MUSCULOSKELETAL: No lower extremity edema bilaterally. NEUROLOGIC: No focal deficits. Results Result Diagram: 05/06/17 0520 05/06/17 0420 Results 24 hrs Laboratory Tests Test 05/06/17 00:26 05/06/17 04:20 05/06/17 05:20 05/06/17 05:40 Lactic Acid Level 3.5 H 3.1 H Sodium Level 143 Potassium Level 4.3 Chloride Level 110 Carbon Dioxide Level 21 Anion Gap 16 Blood Urea Nitrogen 8 Creatinine 0.64 Glucose Level 121 # Calcium Level 9.6 Phosphorus Level 3.9 Magnesium Level 2.1 White Blood Count 5.4 # Red Blood Count 4.37 Hemoglobin 12.7 Hematocrit 38.2 Mean Corpuscular Volume 87.4 Mean Corpuscular Hemoglobin 29.1 Mean Corpuscular Hemoglobin Concent 33.2 Red Cell Distribution Width 14.7 H Platelet Count 151 Mean Platelet Volume 10.6 H Neutrophils % 71.3 Lymphocytes % 16.0 Monocytes % 6.1 Eosinophils % 4.8 Basophils % 1.1 Nucleated Red Blood Cells % 0.0 Neutrophils # 3.9 Lymphocytes # 0.9 Monocytes # 0.3 Eosinophils # 0.3 Basophils # 0.1 Nucleated Red Blood Cells # 0.0 Hemoglobin A1c 6.2 H Triglycerides Level 207 H Cholesterol Level 129 LDL Cholesterol, Calculated 62 HDL Cholesterol 26 L Cholesterol/HDL Ratio 4.9 Thyroid Stimulating Hormone (TSH) 7.740 H Test 05/06/17 19:05 Bedside Glucose 173 Medications Medications Current Medications Ondansetron HCl (Zofran Inj) 4 mg Q6H PRN IV NAUSEA AND/OR VOMITING; Start at 17:30 Acetaminophen (Tylenol Tab) 650 mg Q6H PRN PO PAIN LEVEL 1-3 OR FEVER; Start at 17:30 Acetaminophen/ Hydrocodone Bitart ([place] (5/325)) 1 tab Q6H PRN PO MODERATE PAIN LEVEL 4-6; Start 05/05/17 at 17:30 Morphine Sulfate (morphine) 2 mg Q4H PRN IV SEVERE PAIN LEVEL 7-10; Start 05/05 at 17:30 Magnesium Hydroxide (Milk Of Mag) 30 ml DAILY PRN PO CONSTIPATION; Start at 17:30 Sodium Biphosphate/ Sodium Phosphate (Fleet Enema) 133 ml DAILY PRN [place] CONSTIPATION; Start 05/05/17 at 17:30 Pantoprazole 40 mg 40 mg DAILY@06 PO Last administered on 05/06/17t 07:02; Admin Dose 40 MG; Start 05/06/17 at 06:00 Sodium Chloride (1/2 NS) 1,000 ml @ 75 mls/hr [id number] IV Last administered on 05/06/17 07:03; Admin Dose 75 MLS/HR; Start 05/05/17 at 17:11 Lorazepam 0.5 mg 0.5 mg Q6H PRN PO ANXIETY; Start 05/05/17 at 17:30 Piperacillin Sod/ Tazobactam Sod (Zosyn 3.375gm/ 100 ml (Pmx)) 100 ml @ 200 mls /hr Q6 IVPB Last administered on 05/06/17 18:52; Admin Dose 200 MLS/HR; Start 05/05/17 at 18:00 Vancomycin HCl (Vanco Iv Per Pharmacy) VANCOMYCIN PER PHARMACY NOTE XX ; Start 05/05/17 at 17:30 Hydralazine HCl (Apresoline) 10 mg Q6H PRN IV ELEVATED BLOOD PRESSURE; Start at 17:30 Nitroglycerin (Nitroglycerin (Sl Tab) 0.4 Mg) 1 tab Q5M PRN SL ANGINA; Start at 17:30 Cholecalciferol (Vitamin D) 400 units DAILY PO Last administered on 05/06/17 08:12; Admin Dose 400 UNITS; Start 05/06/17 at 09:00 Vitamin E (Vitamin E) 400 units DAILY PO Last administered on 05/06/17 08:12; Admin Dose 400 UNITS; Start 05/06/17 at 09:00 Miscellaneous Information 5 mg DAILY PO ; Start 05/06/17 at 09:00; Status UNV Enoxaparin Sodium 75 mg 75 mg Q12 SC Last administered on 05/06/17 08:13; Admin Dose 75 MG; Start 05/05/17 at 21:00 Vancomycin HCl (Vancocin) 250 ml @ 125 mls/hr Q12H IVPB Last administered on 16:33; Admin Dose 125 MLS/HR; Start 05/06/17 at 05:00 Miscellaneous Information (*Order Clarification Bulletin) Revlimid 5MG] 5 MG: PLEASE ASK FAMILY... Q8H XX Last administered on 05/05/17 18:27; Admin Dose 1 EA; Start 05/05/17 at 18:00 Miscellaneous Information (*Rx Drug Level Order Reminder*) VANCO TROUGH @ 0, 400 ON... ONCE ONCE XX ; Start 05/07/17 at 04:00; Stop 05/07/17 at 04:01 Docusate Sodium (Colace) 100 mg Q12 PO ; Start 05/06/17 at 21:00 Aspirin (Halfprin) 81 mg DAILY PO ; Start 05/07/17 at 09:00 Atorvastatin Calcium (Lipitor) 10 mg HS PO ; Start 05/06/17 at 21:00 Miscellaneous Information 1 ea NOTE XX ; Start 05/06/17 at 14:30 Glucose (Glutose) 15 gm Q15M PRN PO DECREASED GLUCOSE; Start 05/06/17 at 14:30 Glucose (Glutose) 22.5 gm Q15M PRN PO DECREASED GLUCOSE; Start 05/06/17 at 14: 30 Dextrose (D50w Syringe) 25 ml Q15M PRN IV DECREASED GLUCOSE; Start 05/06/17 at 14:30 Dextrose (D50w Syringe) 50 ml Q15M PRN IV DECREASED GLUCOSE; Start 05/06/17 at 14:30 Glucagon (Glucagen) 1 mg Q15M PRN IM DECREASED GLUCOSE; Start 05/06/17 at 14:30 Glucose (Glutose) 15 gm Q15M PRN BUCCAL DECREASED GLUCOSE; Start 05/06/17 at 14 :30 Diagnostic Test (Pha) (Accu-Chek) 1 ea 02 XX ; Start 05/07/17 at 02:00 ROSSANA ALARCON MD May 06, 2017 21:33
[2017-05-06] MEDS: DOCUSATE SODIUM 100 MG CAP PO SCH (22:31)
[2017-05-06] MEDS: ATORVASTATIN 10 MG TAB PO SCH (22:32)
[2017-05-07] VITALS (13 sets, daily range): BP systolic 117–144; BP diastolic 70–96; PULSE 93–110; RESP 16–22; Ht 160 cm; Wt 75.0 kg
[2017-05-07] MEDS: PIPER-TAZO 3.375 GM IV (PMX) 100 ML IVPB SCH ×5 (00:10→23:44)
[2017-05-07] MEDS: ALBUTEROL/IPRATROPIUM (NEB) 3 ML AMP HHN SCH ×6 (01:48→20:45)
[2017-05-07] MEDS: LENALIDOMIDE 5 MG XX SCH ×3 (02:00→16:58)
[2017-05-07] MEDS: [UNRECOGNIZED DRUG - OTHER] XX SCH ×3 (02:00→16:58)
[2017-05-07] MEDS: ACCUCHECK AT 2AM (Patients on SS coverage) XX SCH (02:00)
[2017-05-07 03:52] LABS: ADD SCAN DIFF NO
[2017-05-07 03:53] LABS: BASOPHIL # 0.1 10^3/ul (0.0-0.1); BASOPHILS % 0.9 % (0.0-2.0); EOSINOPHILS # 0.3 10^3/ul (0.0-0.5); EOSINOPHILS % 4.7 % (0.0-7.0); HEMATOCRIT 37.8 % (37.0-47.0); HEMOGLOBIN 12.4 g/dl (12.0-16.0); LYMPHOCYTES # 0.9 10^3/ul (0.8-2.9); LYMPHOCYTES % 16.2 % (15.0-51.0); MEAN CORPUSCULAR HEMOGLOBIN 28.8 pg (29.0-33.0); MEAN CORPUSCULAR HGB CONC 32.8 g/dl (32.0-37.0); MEAN CORPUSCULAR VOLUME 87.9 fl (82.0-101.0); MEAN PLATELET VOLUME 10.2 fl (7.4-10.4); MONOCYTE # 0.4 10^3/ul (0.3-0.9); MONOCYTES % 6.5 % (0.0-11.0); NEUTROPHIL # 3.9 10^3/ul (1.6-7.5); NEUTROPHILS % 71.3 % (39.0-77.0); PLATELET COUNT 162 10^3/UL (140-415); RED CELL DISTRIBUTION WIDTH 14.6 % (11.5-14.5); WHITE BLOOD COUNT 5.5 10^3/ul (4.8-10.8)
[2017-05-07 04:40] LABS: ALBUMIN 4.1 g/dl (3.3-4.9); BILIRUBIN,INDIRECT 0.7 mg/dl (0-1.1); BILIRUBIN,TOTAL 0.7 mg/dl (0.2-1.3); TOTAL PROTEIN 6.7 g/dl (6.1-8.1)
[2017-05-07 04:41] LABS: CALCIUM 9.3 mg/dl (8.4-10.2); CREATININE 0.86 mg/dl (0.44-1.00); POTASSIUM 3.9 mmol/L (3.5-5.1)
[2017-05-07] MEDS: VANCOMYCIN 1 GM in NS 250 ML IVPB SCH (05:00)
[2017-05-07] MEDS: PANTOPRAZOLE (EC) 40 MG TAB PO SCH (05:46)
[2017-05-07] MEDS: LEVOTHYROXINE 75 MCG TAB PO SCH (06:52)
[2017-05-07] MEDS: SOD CHLORIDE 0.45% 1,000 ML IV SCH ×2 (07:49→22:31)
[2017-05-07] MEDS: INSULIN ASPART [NOVOLOG] 3 ML PEN SC SCH ×4 (07:55→21:00)
[2017-05-07] MEDS: ASPIRIN (EC) 81 MG TAB PO SCH ×2 (08:39→13:16)
[2017-05-07] MEDS: DOCUSATE SODIUM 100 MG CAP PO SCH ×3 (08:39→21:35)
[2017-05-07] MEDS: ENOXAPARIN 80 MG/0.8 ML SYG SC SCH ×3 (08:40→21:38)
[2017-05-07] MEDS: VITAMIN E 400 UNITS CAP PO SCH ×2 (08:40→13:16)
[2017-05-07] MEDS: CHOLECALCIFEROL 400 UNITS TAB PO SCH ×2 (08:40→13:16)
--- NOTE | 2017-05-07 11:42 | PN ---
Date/Time of Note Date/Time of Note DATE: 05/07/17 TIME: 11:37 Assessment/Plan VTE Prophylaxis VTE Prophylaxis Intervention: LMWH Lines/Catheters IV Catheter Type (from [facility]): Peripheral IV Urinary Cath still in place: No Assessment/Plan Assessment/Plan 51-year-old male who presented with sudden shortness of breath now managed for the followin. Acute shortness of breath secondary to #2 : improved 2. Extensive bilateral acute pulmonary emboli 3. Right middle lobe mass suspicious for primary lung cancer without evidence of metastatic disease 4. History of head and neck cancer/right parotid gland mass status post parotidectomy 2013. 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 Hypothyroidism: still with suboptimal control. ?prev TSH 6. Lactic acidosis likely secondary to respiratory insufficiency 7. Prediabetes with hemoglobin A1c of 6.2 8. Dyslipidemia 9. Obesity r/o OHS versus SRAVANTHI PLAN: Spoke extensively with interventional radiology and he recommends treating pulmonary emboli for a while before attempting to biopsy new lung mass. STAT abg to ensure no hypercapnia / Pulmonary consult / continue bronchodilators Continue treatment dose Lovenox / home revlimid / appreciate oncology review Await previous records from head and neck cancer Continue gentle IV hydration and trend lactic acid levels Diabetic diet with sliding scale insulin Low-dose statin/aspirin therapy Continue supportive care Subjective 24 Hr Interval Summary Free Text/Dictation patient confused, seemingly moreso than yesterday Exam/Review of Systems Vital Signs Vitals Vital Signs Date Time Temp Pulse Resp B/P Pulse Ox O2 Delivery O2 Flow Rate FiO2 05/07/17 11:23 97.7 86 16 130/85 94 05/07/17 08:33 2.0 05/07/17 04:54 32 05/07/17 00:00 Nasal Cannula Exam GENERAL: The patient is lying in bed, seems slightly confused. looks comfortable, obese HEENT: Pupils equal, round, react to light. Extraocular muscles intact. NECK: Slightly enlarged R>>L. Surgical scar noted on the right side of the neck, otherwise supple. LUNGS: diminished breath sounds without wheezing. CARDIOVASCULAR: Regular. No rubs or gallops. ABDOMEN: Soft, nontender, nondistended. Normal bowel sounds. No rebound or guarding. NEUROLOGIC: No gross focal deficits. Results Result Diagram: 05/07/17 0345 05/07/17 0345 Results 24 hrs Laboratory Tests Test 05/06/17 19:05 05/06/17 21:36 05/07/17 03:45 05/07/17 08:10 Bedside Glucose 173 135 115 White Blood Count 5.5 Red Blood Count 4.30 Hemoglobin 12.4 Hematocrit 37.8 Mean Corpuscular Volume 87.9 Mean Corpuscular Hemoglobin 28.8 L Mean Corpuscular Hemoglobin Concent 32.8 Red Cell Distribution Width 14.6 H Platelet Count 162 Mean Platelet Volume 10.2 Neutrophils % 71.3 Lymphocytes % 16.2 Monocytes % 6.5 Eosinophils % 4.7 Basophils % 0.9 Nucleated Red Blood Cells % 0.0 Neutrophils # 3.9 Lymphocytes # 0.9 Monocytes # 0.4 Eosinophils # 0.3 Basophils # 0.1 Nucleated Red Blood Cells # 0.0 Sodium Level 140 Potassium Level 3.9 Chloride Level 107 Carbon Dioxide Level 23 Anion Gap 14 Blood Urea Nitrogen 9 Creatinine 0.86 Glucose Level 161 Lactic Acid Level 2.9 H Calcium Level 9.3 Total Bilirubin 0.7 Direct Bilirubin 0.00 Indirect Bilirubin 0.7 Aspartate Amino Transf (AST/SGOT) 30 Alanine Aminotransferase (ALT/SGPT) 49 Alkaline Phosphatase 94 Total Protein 6.7 # Albumin 4.1 Vancomycin Level Trough 7.3 L Medications Medications Current Medications Ondansetron HCl (Zofran Inj) 4 mg Q6H PRN IV NAUSEA AND/OR VOMITING; Start at 17:30 Acetaminophen (Tylenol Tab) 650 mg Q6H PRN PO PAIN LEVEL 1-3 OR FEVER; Start at 17:30 Acetaminophen/ Hydrocodone Bitart ([place] (5/325)) 1 tab Q6H PRN PO MODERATE PAIN LEVEL 4-6; Start 05/05/17 at 17:30 Morphine Sulfate (morphine) 2 mg Q4H PRN IV SEVERE PAIN LEVEL 7-10; Start 05/05 at 17:30 Magnesium Hydroxide (Milk Of Mag) 30 ml DAILY PRN PO CONSTIPATION; Start at 17:30 Sodium Biphosphate/ Sodium Phosphate (Fleet Enema) 133 ml DAILY PRN [place] CONSTIPATION; Start 05/05/17 at 17:30 Pantoprazole 40 mg 40 mg DAILY@06 PO Last administered on 05/07/17t 05:46; Admin Dose 40 MG; Start 05/06/17 at 06:00 Sodium Chloride (1/2 NS) 1,000 ml @ 75 mls/hr [id number] IV Last administered on 05/06/17 22:42; Admin Dose 75 MLS/HR; Start 05/05/17 at 17:11 Lorazepam 0.5 mg 0.5 mg Q6H PRN PO ANXIETY; Start 05/05/17 at 17:30 Piperacillin Sod/ Tazobactam Sod (Zosyn 3.375gm/ 100 ml (Pmx)) 100 ml @ 200 mls /hr Q6 IVPB Last administered on 05/07/17 06:52; Admin Dose 200 MLS/HR; Start 05/05/17 at 18:00 Vancomycin HCl (Vanco Iv Per Pharmacy) VANCOMYCIN PER PHARMACY NOTE XX ; Start 05/05/17 at 17:30 Hydralazine HCl (Apresoline) 10 mg Q6H PRN IV ELEVATED BLOOD PRESSURE; Start at 17:30 Nitroglycerin (Nitroglycerin (Sl Tab) 0.4 Mg) 1 tab Q5M PRN SL ANGINA; Start at 17:30 Cholecalciferol (Vitamin D) 400 units DAILY PO Last administered on 05/06/17 08:12; Admin Dose 400 UNITS; Start 05/06/17 at 09:00 Vitamin E (Vitamin E) 400 units DAILY PO Last administered on 05/06/17 08:12; Admin Dose 400 UNITS; Start 05/06/17 at 09:00 Miscellaneous Information 5 mg DAILY PO ; Start 05/06/17 at 09:00; Status UNV Enoxaparin Sodium (Lovenox) 75 mg Q12 SC Last administered on 05/06/17 22:34; Admin Dose 75 MG; Start 05/05/17 at 21:00 Miscellaneous Information (*Order Clarification Bulletin) Revlimid 5MG] 5 MG: PLEASE ASK FAMILY... Q8H XX Last administered on 05/05/17 18:27; Admin Dose 1 EA; Start 05/05/17 at 18:00 Docusate Sodium (Colace) 100 mg Q12 PO Last administered on 05/06/17 22:31; Admin Dose 100 MG; Start 05/06/17 at 21:00 Aspirin (Halfprin) 81 mg DAILY PO ; Start 05/07/17 at 09:00 Atorvastatin Calcium (Lipitor) 10 mg HS PO Last administered on 05/06/17t 22:32 ; Admin Dose 10 MG; Start 05/06/17 at 21:00 Miscellaneous Information 1 ea NOTE XX ; Start 05/06/17 at 14:30 Glucose (Glutose) 15 gm Q15M PRN PO DECREASED GLUCOSE; Start 05/06/17 at 14:30 Glucose (Glutose) 22.5 gm Q15M PRN PO DECREASED GLUCOSE; Start 05/06/17 at 14: 30 Dextrose (D50w Syringe) 25 ml Q15M PRN IV DECREASED GLUCOSE; Start 05/06/17 at 14:30 Dextrose (D50w Syringe) 50 ml Q15M PRN IV DECREASED GLUCOSE; Start 05/06/17 at 14:30 Glucagon (Glucagen) 1 mg Q15M PRN IM DECREASED GLUCOSE; Start 05/06/17 at 14:30 Glucose (Glutose) 15 gm Q15M PRN BUCCAL DECREASED GLUCOSE; Start 05/06/17 at 14 :30 Diagnostic Test (Pha) 1 ea 1 ea 02 XX ; Start 05/07/17 at 02:00 Vancomycin HCl/ Sodium Chloride (Vancocin/NS) 250 ml @ 83.333 mls/ hr Q12H IVPB ; Start 05/07/17 at 13:00 JJ BAE May 07, 2017 11:42
[2017-05-07] MEDS: VANCOMYCIN 1.5 GM in SOD CHLORIDE 0.9% 250 ML IVPB SCH (14:26)
[2017-05-07 17:02] LABS: AADO2 Arterial 82.7 mmHg (7.0-24.0); Allen Test ACCEPTAB; Arterial Base Excess -2.7 mmol/L (-3.0-3); Arterial COHb 0.1 % (0.0-3.0); Arterial Fraction of Oxyhgb 94.4 % (93.0-99.0); Arterial HCO3 20.2 mmol/L (22.0-26.0); Arterial MetHb 0.2 % (0.0-1.5); Arterial Total Hemglobin 14.1 g/dl (12.0-18.0); MODE NASAL CANNULA
[2017-05-07] MEDS ORDERED: PATIENT'S OWN MEDICATION PO SCH (20:00)
--- NOTE | 2017-05-07 21:20 | CONS ---
Date/Time of Note Date/Time of Note DATE: 05/07/17 TIME: 21:20 Assessment/Plan Assessment/Plan Chief Complaint/Hosp Course Extensive bilateral acute pulmonary emboli. No saddle embolus. Lovenox 1 mg/kg subQ b.i.d 3.8 x 2.4 cm mass right middle lobe highly suspicious for primary lung cancer. No evidence of metastatic disease in the chest complete staging with CT ABD PULM EVAL MASS BX HOLD LOVENOX PREOP TO BX Shortness of breath. secondary to pulmonary embolism. 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 OBTAIN AND REVIEW OLD RECORD Lactic acidosis, unclear source. Signs of possible sepsis. Continue broad-spectrum antibiotics Questionable history of thyroid issues. Check thyroid panel, continue levothyroxine. Gastrointestinal prophylaxis. PPI. Deep venous thrombosis prophylaxis. Lovenox INCOMPLETE RECORD Problems: Consultation Date/Type/Reason Admit Date/Time May 06, 2017 at 14:11 Initial Consult Date 05/05/17 Type of Consultation: [facility] Referring Provider: MANJINDER HOWELL 24 HR Interval Summary Free Text/Dictation ALL NOTED Exam/Review of Systems Vital Signs Vitals Vital Signs Date Time Temp Pulse Resp B/P Pulse Ox O2 Delivery O2 Flow Rate FiO2 05/07/17 20:45 102 24 93 Nasal Cannula 2.0 05/07/17 20:12 98.5 144/79 05/07/17 04:54 32 Exam GENERAL: The patient is lying in bed, answering questions appropriately. No acute distress. HEENT: Pupils equal, round, react to light. Extraocular muscles intact. NECK: Slightly enlarged. Surgical scar noted on the right side of the neck, otherwise supple. LUNGS: Clear to auscultation bilaterally. No wheezes. CARDIOVASCULAR: Tachycardic heart rate but regular. No rubs or gallops. ABDOMEN: Soft, nontender, nondistended. Normal bowel sounds. No rebound or guarding. MUSCULOSKELETAL: No lower extremity edema bilaterally. NEUROLOGIC: No focal deficits. Results Result Diagram: 05/07/17 0345 05/07/17 0345 Results 24 hrs Laboratory Tests Test 05/06/17 21:36 05/07/17 03:45 05/07/17 08:10 05/07/17 12:40 Bedside Glucose 135 115 110 White Blood Count 5.5 Red Blood Count 4.30 Hemoglobin 12.4 Hematocrit 37.8 Mean Corpuscular Volume 87.9 Mean Corpuscular Hemoglobin 28.8 L Mean Corpuscular Hemoglobin Concent 32.8 Red Cell Distribution Width 14.6 H Platelet Count 162 Mean Platelet Volume 10.2 Neutrophils % 71.3 Lymphocytes % 16.2 Monocytes % 6.5 Eosinophils % 4.7 Basophils % 0.9 Nucleated Red Blood Cells % 0.0 Neutrophils # 3.9 Lymphocytes # 0.9 Monocytes # 0.4 Eosinophils # 0.3 Basophils # 0.1 Nucleated Red Blood Cells # 0.0 Sodium Level 140 Potassium Level 3.9 Chloride Level 107 Carbon Dioxide Level 23 Anion Gap 14 Blood Urea Nitrogen 9 Creatinine 0.86 Glucose Level 161 Lactic Acid Level 2.9 H Calcium Level 9.3 Total Bilirubin 0.7 Direct Bilirubin 0.00 Indirect Bilirubin 0.7 Aspartate Amino Transf (AST/SGOT) 30 Alanine Aminotransferase (ALT/SGPT) 49 Alkaline Phosphatase 94 Total Protein 6.7 # Albumin 4.1 Vancomycin Level Trough 7.3 L Test 05/07/17 15:45 05/07/17 17:05 Blood Gas Specimen Source Blood arterial Arterial Blood Date Drawn 05/07/2017 4:55:04 PM Arterial Blood pH (Temp corrected) 7.445 Arterial Blood pCO2 (Temp correct) 30.1 L Arterial Blood pO2 (Temp corrected) 74.2 L Arterial Blood HCO3 20.2 L Arterial Blood Base Excess -2.7 Arterial Blood Oxygen Saturation 94.7 L Simone Test ACCEPTAB Arterial Blood Gas Puncture Site Left Radial Arterial Blood Carboxyhemoglobin 0.1 Arterial Blood Methemoglobin 0.2 Blood Gas A-a O2 Differential 82.7 H Oxyhemoglobin Percent 94.4 Total Hemoglobin 14.1 Blood Gas Temperature 37.0 Blood Gas Modality NASAL CANNULA FiO2 27.0 Blood Gas Notified Whom RT Blood Gas Notified Time 05/07/2017 5:02:02 PM Bedside Glucose 135 Medications Medications Current Medications Ondansetron HCl (Zofran Inj) 4 mg Q6H PRN IV NAUSEA AND/OR VOMITING; Start at 17:30 Acetaminophen (Tylenol Tab) 650 mg Q6H PRN PO PAIN LEVEL 1-3 OR FEVER; Start at 17:30 Acetaminophen/ Hydrocodone Bitart ([place] (5/325)) 1 tab Q6H PRN PO MODERATE PAIN LEVEL 4-6; Start 05/05/17 at 17:30 Morphine Sulfate (morphine) 2 mg Q4H PRN IV SEVERE PAIN LEVEL 7-10; Start 05/05 at 17:30 Magnesium Hydroxide (Milk Of Mag) 30 ml DAILY PRN PO CONSTIPATION; Start at 17:30 Sodium Biphosphate/ Sodium Phosphate (Fleet Enema) 133 ml DAILY PRN [place] CONSTIPATION; Start 05/05/17 at 17:30 Pantoprazole 40 mg 40 mg DAILY@06 PO Last administered on 05/07/17 05:46; Admin Dose 40 MG; Start 05/06/17 at 06:00 Sodium Chloride (1/2 NS) 1,000 ml @ 75 mls/hr [id number] IV Last administered on 05/06/17 22:42; Admin Dose 75 MLS/HR; Start 05/05/17 at 17:11 Lorazepam 0.5 mg 0.5 mg Q6H PRN PO ANXIETY; Start 05/05/17 at 17:30 Piperacillin Sod/ Tazobactam Sod (Zosyn 3.375gm/ 100 ml (Pmx)) 100 ml @ 200 mls /hr Q6 IVPB Last administered on 05/07/17 17:58; Admin Dose 200 MLS/HR; Start 05/05/17 at 18:00 Vancomycin HCl (Vanco Iv Per Pharmacy) VANCOMYCIN PER PHARMACY NOTE XX ; Start 05/05/17 at 17:30 Hydralazine HCl (Apresoline) 10 mg Q6H PRN IV ELEVATED BLOOD PRESSURE; Start at 17:30 Nitroglycerin (Nitroglycerin (Sl Tab) 0.4 Mg) 1 tab Q5M PRN SL ANGINA; Start at 17:30 Cholecalciferol (Vitamin D) 400 units DAILY PO Last administered on 05/07/17 13:16; Admin Dose 400 UNITS; Start 05/06/17 at 09:00 Vitamin E (Vitamin E) 400 units DAILY PO Last administered on 05/07/17 13:16; Admin Dose 400 UNITS; Start 05/06/17 at 09:00 Enoxaparin Sodium (Lovenox) 75 mg Q12 SC Last administered on 05/07/17 13:19; Admin Dose 75 MG; Start 05/05/17 at 21:00 Miscellaneous Information (*Order Clarification Bulletin) Revlimid 5MG] 5 MG: PLEASE ASK FAMILY... Q8H XX Last administered on 05/05/17 18:27; Admin Dose 1 EA; Start 05/05/17 at 18:00 Docusate Sodium (Colace) 100 mg Q12 PO Last administered on 05/07/17 13:16; Admin Dose 100 MG; Start 05/06/17 at 21:00 Aspirin (Halfprin) 81 mg DAILY PO Last administered on 05/07/17 13:16; Admin Dose 81 MG; Start 05/07/17 at 09:00 Atorvastatin Calcium (Lipitor) 10 mg HS PO Last administered on 05/06/17 22:32 ; Admin Dose 10 MG; Start 05/06/17 at 21:00 Miscellaneous Information 1 ea NOTE XX ; Start 05/06/17 at 14:30 Glucose (Glutose) 15 gm Q15M PRN PO DECREASED GLUCOSE; Start 05/06/17 at 14:30 Glucose (Glutose) 22.5 gm Q15M PRN PO DECREASED GLUCOSE; Start 05/06/17 at 14: 30 Dextrose (D50w Syringe) 25 ml Q15M PRN IV DECREASED GLUCOSE; Start 05/06/17 at 14:30 Dextrose (D50w Syringe) 50 ml Q15M PRN IV DECREASED GLUCOSE; Start 05/06/17 at 14:30 Glucagon (Glucagen) 1 mg Q15M PRN IM DECREASED GLUCOSE; Start 05/06/17 at 14:30 Glucose (Glutose) 15 gm Q15M PRN BUCCAL DECREASED GLUCOSE; Start 05/06/17 at 14 :30 Diagnostic Test (Pha) 1 ea 1 ea 02 XX ; Start 05/07/17 at 02:00 Vancomycin HCl/ Sodium Chloride (Vancocin/NS) 250 ml @ 83.333 mls/ hr Q12H IVPB Last administered on 05/07/17 14:26; Admin Dose 83.333 MLS/HR; Start at 13:00 Patient Own Medication 1 ea DAILY PO ; Start 05/07/17 at 20:00; Stop 05/22/17 at 09:01 ROSSANA ALARCON MD May 07, 2017 21:20
[2017-05-07] MEDS: ATORVASTATIN 10 MG TAB PO SCH (21:35)
[2017-05-08] VITALS (10 sets, daily range): BP systolic 114–134; BP diastolic 68–84; PULSE 95–104; RESP 17–23
[2017-05-08] MEDS: VANCOMYCIN 1.5 GM in SOD CHLORIDE 0.9% 250 ML IVPB SCH ×2 (00:50→13:29)
[2017-05-08] MEDS: ALBUTEROL/IPRATROPIUM (NEB) 3 ML AMP HHN SCH ×5 (01:38→16:15)
[2017-05-08] MEDS: LENALIDOMIDE 5 MG XX SCH (02:00)
[2017-05-08] MEDS: [UNRECOGNIZED DRUG - OTHER] XX SCH (02:00)
[2017-05-08] MEDS: ACCUCHECK AT 2AM (Patients on SS coverage) XX SCH (02:00)
[2017-05-08] MEDS: PIPER-TAZO 3.375 GM IV (PMX) 100 ML IVPB SCH ×4 (06:16→23:13)
[2017-05-08] MEDS: PANTOPRAZOLE (EC) 40 MG TAB PO SCH (06:16)
[2017-05-08] MEDS: LEVOTHYROXINE 75 MCG TAB PO SCH (06:16)
[2017-05-08] MEDS: INSULIN ASPART [NOVOLOG] 3 ML PEN SC SCH ×4 (07:55→21:00)
[2017-05-08] MEDS: DOCUSATE SODIUM 100 MG CAP PO SCH ×2 (08:55→21:00)
[2017-05-08] MEDS: VITAMIN E 400 UNITS CAP PO SCH (09:00)
[2017-05-08] MEDS: ASPIRIN (EC) 81 MG TAB PO SCH (09:00)
[2017-05-08] MEDS: CHOLECALCIFEROL 400 UNITS TAB PO SCH (09:00)
[2017-05-08] MEDS: ENOXAPARIN 80 MG/0.8 ML SYG SC SCH ×2 (09:03→21:28)
--- NOTE | 2017-05-08 09:03 | RADRPT ---
PROCEDURE: Chest 1 views. CLINICAL INDICATION: Shortness of breath TECHNIQUE: AP views of the chest was obtained. COMPARISON: May 05, [address] May 05, 2017 FINDINGS: The heart is large. Right-sided chest port is stable and appears in grossly appropriate location. Mi ld interstitial prominence in both lungs is unchanged. Right middle lobe mass is stable. Osseous st ructures are unchanged. IMPRESSION: Cardiomegaly . Stable mild interstitial prominence in both lungs. Interstitial prominence could be chronic. Stable right middle lobe mass. RPTAT: AA .Anand Melo MD, Date Time Electronically viewed and signed by .Anand Melo MD, on 05/08/2017 09:03 .P/
[2017-05-08 10:24] LABS: ADD SCAN DIFF NO
[2017-05-08 10:33] LABS: BASOPHIL # 0.1 10^3/ul (0.0-0.1); BASOPHILS % 0.7 % (0.0-2.0); EOSINOPHILS # 0.2 10^3/ul (0.0-0.5); EOSINOPHILS % 3.3 % (0.0-7.0); HEMATOCRIT 39.2 % (37.0-47.0); HEMOGLOBIN 12.6 g/dl (12.0-16.0); LYMPHOCYTES # 1.1 10^3/ul (0.8-2.9); LYMPHOCYTES % 15.1 % (15.0-51.0); MEAN CORPUSCULAR HEMOGLOBIN 28.8 pg (29.0-33.0); MEAN CORPUSCULAR HGB CONC 32.1 g/dl (32.0-37.0); MEAN CORPUSCULAR VOLUME 89.5 fl (82.0-101.0); MEAN PLATELET VOLUME 10.2 fl (7.4-10.4); MONOCYTE # 0.3 10^3/ul (0.3-0.9); NEUTROPHIL # 5.4 10^3/ul (1.6-7.5); NEUTROPHILS % 76.5 % (39.0-77.0); PLATELET COUNT 188 10^3/UL (140-415); RED BLOOD COUNT 4.38 10^6/ul (4.20-5.40); RED CELL DISTRIBUTION WIDTH 14.7 % (11.5-14.5)
[2017-05-08 10:57] LABS: CALCIUM 9.4 mg/dl (8.4-10.2); CREATININE 0.8 mg/dl (0.44-1.00); POTASSIUM 4.1 mmol/L (3.5-5.1)
[2017-05-08] MEDS: SOD CHLORIDE 0.45% 1,000 ML IV SCH (11:51)
[2017-05-08] MEDS: LENALIDOMIDE 5 MG PO SCH (12:56)
--- NOTE | 2017-05-08 14:12 | CONS ---
Date/Time of Note Date/Time of Note DATE: 05/08/17 TIME: 14:08 Assessment/Plan Assessment/Plan Additional Assessment/Plan CT of the chest is showing bilateral pulmonary emboli with masslike lesion with surrounding air bronchograms involving the right upper lobe. Assessment recommendations; 1. Patient admitted with shortness of breath discovered to have bilateral pulmonary emboli. 2. Right lung mass, possibly area of round pneumonia. As there are air bronchograms in the surrounding vicinity. 3. 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 Continue current treatment. Obtain a repeat CT imaging in 2 weeks time. Patient also may need to have PET scan done on outpatient basis if there is no change in CT imaging. Consultation Date/Type/Reason Admit Date/Time May 06, 2017 at 14:11 Date of Consultation: May 08, 2017 Type of Consultation: Pulmonary Reason for Consultation Pulmonary consultation requested for evaluation of lung mass and bilateral pulmonary embolism. History of presenting illness; patient is a 51-year-old white lady who came into the emergency room yesterday with complaint of shortness of breath going on for the last day or so. Upon evaluation a CTA of the chest was done which is showing bilateral pulmonary emboli the patient has been started on cutaneous Lovenox. Also patient has right lung mass which has been interpreted as possible malignant. The patient denies any chest pain shortness of breath is improving denies any hemoptysis coughing or sputum production. Past medical history; 1. Patient with a history of malignancy involving the neck involving the right side status post skin grafting. Medications; reviewed. Allergies; none. Social history; most of any smoking alcohol or drug abuse. Family history; noncontributory. No history of any malignancy in the family. Patient history; patient has been a housewife. Review of systems; denies any headache, seizures. Any chest pain, shortness of breath is improving. Denies any coughing or hemoptysis. Denies any sputum production. Denies any abdominal pain, nausea vomiting. Denies any edema. Denies any chronic shortness of breath. Has steady weight. Patient does complain of snoring. General exam; middle-aged woman obese currently in no distress. Constitutional: improved, no complaints Social History Smoking Status: Never smoker Exam/Review of Systems Vital Signs Vitals Vital Signs Date Time Temp Pulse Resp B/P Pulse Ox O2 Delivery O2 Flow Rate FiO2 05/08/17 13:44 95 2.0 05/08/17 13:44 101 24 Nasal Cannula 05/08/17 12:03 98.0 124/76 05/07/17 04:54 32 Intake and Output 05/07/17 05/07/17 05/08/17 15:00 23:00 07:00 Intake Total 100 ml 570 ml 550 ml Balance 100 ml 570 ml 550 ml Exam HEENT exam; supple neck, no JVD. No lymphadenopathy midline trachea. No thyromegaly. Pharynx is clear. Patient has fair dentition. Pupils are midsize and reactive to light. There is a skin graft involving the right neck. Chest exam; diminished but clear vessel. S1-S2 audible, no murmurs. Regular rhythm. Abdomen exam; soft, protuberant. Nontender. No organomegaly. Bowel sounds audible. Extremity exam; no peripheral edema. BR[employer]ER exam; no focal deficit. Results Result Diagram: 05/08/17 1005 05/08/17 1005 Results 24 hrs Laboratory Tests Test 05/07/17 15:45 05/07/17 17:05 05/07/17 21:31 05/08/17 08:08 Blood Gas Specimen Source Blood arterial Arterial Blood Date Drawn 05/07/2017 4:55:04 PM Arterial Blood pH (Temp corrected) 7.445 Arterial Blood pCO2 (Temp correct) 30.1 L Arterial Blood pO2 (Temp corrected) 74.2 L Arterial Blood HCO3 20.2 L Arterial Blood Base Excess -2.7 Arterial Blood Oxygen Saturation 94.7 L Simone Test ACCEPTAB Arterial Blood Gas Puncture Site Left Radial Arterial Blood Carboxyhemoglobin 0.1 Arterial Blood Methemoglobin 0.2 Blood Gas A-a O2 Differential 82.7 H Oxyhemoglobin Percent 94.4 Total Hemoglobin 14.1 Blood Gas Temperature 37.0 Blood Gas Modality NASAL CANNULA FiO2 27.0 Blood Gas Notified Whom RT Blood Gas Notified Time 05/07/2017 5:02:02 PM Bedside Glucose 135 169 120 Test 05/08/17 10:05 05/08/17 12:32 White Blood Count 7.0 # Red Blood Count 4.38 Hemoglobin 12.6 Hematocrit 39.2 Mean Corpuscular Volume 89.5 Mean Corpuscular Hemoglobin 28.8 L Mean Corpuscular Hemoglobin Concent 32.1 Red Cell Distribution Width 14.7 H Platelet Count 188 Mean Platelet Volume 10.2 Neutrophils % 76.5 Lymphocytes % 15.1 Monocytes % 4.0 Eosinophils % 3.3 Basophils % 0.7 Nucleated Red Blood Cells % 0.0 Neutrophils # 5.4 Lymphocytes # 1.1 Monocytes # 0.3 Eosinophils # 0.2 Basophils # 0.1 Nucleated Red Blood Cells # 0.0 Sodium Level 141 Potassium Level 4.1 Chloride Level 107 Carbon Dioxide Level 20 L Anion Gap 18 H Blood Urea Nitrogen 7 Creatinine 0.80 Glucose Level 140 Calcium Level 9.4 Bedside Glucose 146 Medications Medications Current Medications Ondansetron HCl (Zofran Inj) 4 mg Q6H PRN IV NAUSEA AND/OR VOMITING; Start at 17:30 Acetaminophen (Tylenol Tab) 650 mg Q6H PRN PO PAIN LEVEL 1-3 OR FEVER; Start at 17:30 Acetaminophen/ Hydrocodone Bitart ([place] (5/325)) 1 tab Q6H PRN PO MODERATE PAIN LEVEL 4-6; Start 05/05/17 at 17:30 Morphine Sulfate (morphine) 2 mg Q4H PRN IV SEVERE PAIN LEVEL 7-10; Start 05/05 at 17:30 Magnesium Hydroxide (Milk Of Mag) 30 ml DAILY PRN PO CONSTIPATION; Start at 17:30 Sodium Biphosphate/ Sodium Phosphate (Fleet Enema) 133 ml DAILY PRN [place] CONSTIPATION; Start 05/05/17 at 17:30 Pantoprazole 40 mg 40 mg DAILY@06 PO Last administered on 05/08/17 06:16; Admin Dose 40 MG; Start 05/06/17 at 06:00 Sodium Chloride (1/2 NS) 1,000 ml @ 75 mls/hr [id number] IV Last administered on 05/07/17 22:31; Admin Dose 75 MLS/HR; Start 05/05/17 at 17:11 Lorazepam 0.5 mg 0.5 mg Q6H PRN PO ANXIETY; Start 05/05/17 at 17:30 Piperacillin Sod/ Tazobactam Sod (Zosyn 3.375gm/ 100 ml (Pmx)) 100 ml @ 200 mls /hr Q6 IVPB Last administered on 05/08/17 12:51; Admin Dose 200 MLS/HR; Start 05/05/17 at 18:00 Vancomycin HCl (Vanco Iv Per Pharmacy) VANCOMYCIN PER PHARMACY NOTE XX ; Start 05/05/17 at 17:30 Hydralazine HCl (Apresoline) 10 mg Q6H PRN IV ELEVATED BLOOD PRESSURE; Start at 17:30 Nitroglycerin (Nitroglycerin (Sl Tab) 0.4 Mg) 1 tab Q5M PRN SL ANGINA; Start at 17:30 Cholecalciferol (Vitamin D) 400 units DAILY PO Last administered on 05/08/17 09:00; Admin Dose 400 UNITS; Start 05/06/17 at 09:00 Vitamin E (Vitamin E) 400 units DAILY PO Last administered on 05/08/17 09:00; Admin Dose 400 UNITS; Start 05/06/17 at 09:00 Enoxaparin Sodium (Lovenox) 75 mg Q12 SC Last administered on 05/08/17 09:03; Admin Dose 75 MG; Start 05/05/17 at 21:00 Docusate Sodium (Colace) 100 mg Q12 PO Last administered on 05/07/17 21:35; Admin Dose 100 MG; Start 05/06/17 at 21:00 Aspirin (Halfprin) 81 mg DAILY PO Last administered on 05/08/17 09:00; Admin Dose 81 MG; Start 05/07/17 at 09:00 Atorvastatin Calcium (Lipitor) 10 mg HS PO Last administered on 05/07/17 21:35 ; Admin Dose 10 MG; Start 05/06/17 at 21:00 Miscellaneous Information 1 ea NOTE XX ; Start 05/06/17 at 14:30 Glucose (Glutose) 15 gm Q15M PRN PO DECREASED GLUCOSE; Start 05/06/17 at 14:30 Glucose (Glutose) 22.5 gm Q15M PRN PO DECREASED GLUCOSE; Start 05/06/17 at 14: 30 Dextrose (D50w Syringe) 25 ml Q15M PRN IV DECREASED GLUCOSE; Start 05/06/17 at 14:30 Dextrose (D50w Syringe) 50 ml Q15M PRN IV DECREASED GLUCOSE; Start 05/06/17 at 14:30 Glucagon (Glucagen) 1 mg Q15M PRN IM DECREASED GLUCOSE; Start 05/06/17 at 14:30 Glucose (Glutose) 15 gm Q15M PRN BUCCAL DECREASED GLUCOSE; Start 05/06/17 at 14 :30 Diagnostic Test (Pha) 1 ea 1 ea 02 XX ; Start 05/07/17 at 02:00 Vancomycin HCl/ Sodium Chloride (Vancocin/NS) 250 ml @ 83.333 mls/ hr Q12H IVPB Last administered on 05/08/17 13:29; Admin Dose 83.333 MLS/HR; Start at 13:00 Patient Own Medication 1 ea DAILY PO Last administered on 05/08/17 12:56; Admin Dose 1 EA; Start 05/08/17 at 12:00; Stop 05/22/17 at 09:01 DAVID LUX May 08, 2017 14:12
--- NOTE | 2017-05-08 14:33 | PN ---
Date/Time of Note Date/Time of Note DATE: 05/08/17 TIME: 14:26 Assessment/Plan VTE Prophylaxis VTE Prophylaxis Intervention: LMWH Lines/Catheters IV C[facility]ter Type [facility] Peripheral IV Urinary Cath still in place: No Assessment/Plan Assessment/Plan 51-year-old female who presented with sudden shortness of breath now managed for the followin. Acute shortness of breath secondary to #2 : improved 2. Extensive bilateral acute pulmonary emboli 3. Right middle lobe mass suspicious for primary lung cancer without evidence of metastatic disease 4. 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 Hypothyroidism: still with suboptimal control. : dosage gently increased to 100mcg 6. Lactic acidosis likely secondary to respiratory insufficiency: slowly improving 7. Prediabetes with hemoglobin A1c of 6.2 8. Dyslipidemia 9. Obesity r/o OHS versus SRAVANTHI 10. Chronic cognitive deficits, ?dementia vs Chronic MR PLAN: Spoke extensively with interventional radiology and he recommends treating pulmonary emboli for a while before attempting to biopsy new lung mass. Continue treatment dose Lovenox / home Revlimid / appreciate oncology review Continue gentle IV hydration and trend lactic acid levels till normal Diabetic diet with sliding scale insulin Low-dose statin/aspirin therapy Continue supportive care F/u consultants recs / PT eval Subjective 24 Hr Interval Summary Free Text/Dictation Patient seen and examined. Looks more comfortable today Exam/Review of Systems Vital Signs Vitals Vital Signs Date Time Temp Pulse Resp B/P Pulse Ox O2 Delivery O2 Flow Rate FiO2 05/08/17 13:44 95 2.0 05/08/17 13:44 101 24 Nasal Cannula 05/08/17 12:03 98.0 124/76 05/07/17 04:54 32 Intake and Output 05/07/17 05/07/17 05/08/17 15:00 23:00 07:00 Intake Total 100 ml 570 ml 550 ml Balance 100 ml 570 ml 550 ml Exam GENERAL: The patient is lying in bed, seems slightly confused. looks comfortable, obese HEENT: Pupils equal, round, react to light. Extraocular muscles intact. NECK: Slightly enlarged R>>L. Surgical scar noted on the right side of the neck, otherwise supple. LUNGS: diminished breath sounds without wheezing. CARDIOVASCULAR: Regular. No rubs or gallops. ABDOMEN: Soft, nontender, nondistended. Normal bowel sounds. No rebound or guarding. NEUROLOGIC: No gross focal deficits Results Result Diagram: 05/08/17 1005 05/08/17 1005 Results 24 hrs Laboratory Tests Test 05/07/17 15:45 05/07/17 17:05 05/07/17 21:31 05/08/17 08:08 Blood Gas Specimen Source Blood arterial Arterial Blood Date Drawn 05/07/2017 4:55:04 PM Arterial Blood pH (Temp corrected) 7.445 Arterial Blood pCO2 (Temp correct) 30.1 L Arterial Blood pO2 (Temp corrected) 74.2 L Arterial Blood HCO3 20.2 L Arterial Blood Base Excess -2.7 Arterial Blood Oxygen Saturation 94.7 L Simone Test ACCEPTAB Arterial Blood Gas Puncture Site Left Radial Arterial Blood Carboxyhemoglobin 0.1 Arterial Blood Methemoglobin 0.2 Blood Gas A-a O2 Differential 82.7 H Oxyhemoglobin Percent 94.4 Total Hemoglobin 14.1 Blood Gas Temperature 37.0 Blood Gas Modality NASAL CANNULA FiO2 27.0 Blood Gas Notified Whom RT Blood Gas Notified Time 05/07/2017 5:02:02 PM Bedside Glucose 135 169 120 Test 05/08/17 10:05 05/08/17 12:32 White Blood Count 7.0 # Red Blood Count 4.38 Hemoglobin 12.6 Hematocrit 39.2 Mean Corpuscular Volume 89.5 Mean Corpuscular Hemoglobin 28.8 L Mean Corpuscular Hemoglobin Concent 32.1 Red Cell Distribution Width 14.7 H Platelet Count 188 Mean Platelet Volume 10.2 Neutrophils % 76.5 Lymphocytes % 15.1 Monocytes % 4.0 Eosinophils % 3.3 Basophils % 0.7 Nucleated Red Blood Cells % 0.0 Neutrophils # 5.4 Lymphocytes # 1.1 Monocytes # 0.3 Eosinophils # 0.2 Basophils # 0.1 Nucleated Red Blood Cells # 0.0 Sodium Level 141 Potassium Level 4.1 Chloride Level 107 Carbon Dioxide Level 20 L Anion Gap 18 H Blood Urea Nitrogen 7 Creatinine 0.80 Glucose Level 140 Calcium Level 9.4 Bedside Glucose 146 Medications Medications Current Medications Ondansetron HCl (Zofran Inj) 4 mg Q6H PRN IV NAUSEA AND/OR VOMITING; Start at 17:30 Acetaminophen (Tylenol Tab) 650 mg Q6H PRN PO PAIN LEVEL 1-3 OR FEVER; Start at 17:30 Acetaminophen/ Hydrocodone Bitart ([place] (5/325)) 1 tab Q6H PRN PO MODERATE PAIN LEVEL 4-6; Start 05/05/17 at 17:30 Morphine Sulfate (morphine) 2 mg Q4H PRN IV SEVERE PAIN LEVEL 7-10; Start 05/05 at 17:30 Magnesium Hydroxide (Milk Of Mag) 30 ml DAILY PRN PO CONSTIPATION; Start at 17:30 Sodium Biphosphate/ Sodium Phosphate (Fleet Enema) 133 ml DAILY PRN [place] CONSTIPATION; Start 05/05/17 at 17:30 Pantoprazole 40 mg 40 mg DAILY@06 PO Last administered on 05/08/17 06:16; Admin Dose 40 MG; Start 05/06/17 at 06:00 Sodium Chloride (1/2 NS) 1,000 ml @ 75 mls/hr [id number] IV Last administered on 05/07/17 22:31; Admin Dose 75 MLS/HR; Start 05/05/17 at 17:11 Lorazepam 0.5 mg 0.5 mg Q6H PRN PO ANXIETY; Start 05/05/17 at 17:30 Piperacillin Sod/ Tazobactam Sod (Zosyn 3.375gm/ 100 ml (Pmx)) 100 ml @ 200 mls /hr Q6 IVPB Last administered on 05/08/17 12:51; Admin Dose 200 MLS/HR; Start 05/05/17 at 18:00 Vancomycin HCl (Vanco Iv Per Pharmacy) VANCOMYCIN PER PHARMACY NOTE XX ; Start 05/05/17 at 17:30 Hydralazine HCl (Apresoline) 10 mg Q6H PRN IV ELEVATED BLOOD PRESSURE; Start at 17:30 Nitroglycerin (Nitroglycerin (Sl Tab) 0.4 Mg) 1 tab Q5M PRN SL ANGINA; Start at 17:30 Cholecalciferol (Vitamin D) 400 units DAILY PO Last administered on 05/08/17 09:00; Admin Dose 400 UNITS; Start 05/06/17 at 09:00 Vitamin E (Vitamin E) 400 units DAILY PO Last administered on 6/28/17at 09:00; Admin Dose 400 UNITS; Start 05/06/17 at 09:00 Enoxaparin Sodium (Lovenox) 75 mg Q12 SC Last administered on 05/08/17 09:03; Admin Dose 75 MG; Start 05/05/17 at 21:00 Docusate Sodium (Colace) 100 mg Q12 PO Last administered on 05/07/17 21:35; Admin Dose 100 MG; Start 05/06/17 at 21:00 Aspirin (Halfprin) 81 mg DAILY PO Last administered on 05/08/17 09:00; Admin Dose 81 MG; Start 05/07/17 at 09:00 Atorvastatin Calcium (Lipitor) 10 mg HS PO Last administered on 05/07/17 21:35 ; Admin Dose 10 MG; Start 05/06/17 at 21:00 Miscellaneous Information 1 ea NOTE XX ; Start 05/06/17 at 14:30 Glucose (Glutose) 15 gm Q15M PRN PO DECREASED GLUCOSE; Start 05/06/17 at 14:30 Glucose (Glutose) 22.5 gm Q15M PRN PO DECREASED GLUCOSE; Start 05/06/17 at 14: 30 Dextrose (D50w Syringe) 25 ml Q15M PRN IV DECREASED GLUCOSE; Start 05/06/17 at 14:30 Dextrose (D50w Syringe) 50 ml Q15M PRN IV DECREASED GLUCOSE; Start 05/06/17 at 14:30 Glucagon (Glucagen) 1 mg Q15M PRN IM DECREASED GLUCOSE; Start 05/06/17 at 14:30 Glucose (Glutose) 15 gm Q15M PRN BUCCAL DECREASED GLUCOSE; Start 05/06/17 at 14 :30 Diagnostic Test (Pha) 1 ea 1 ea 02 XX ; Start 05/07/17 at 02:00 Vancomycin HCl/ Sodium Chloride (Vancocin/NS) 250 ml @ 83.333 mls/ hr Q12H IVPB Last administered on 05/08/17 13:29; Admin Dose 83.333 MLS/HR; Start at 13:00 Patient Own Medication 1 ea DAILY PO Last administered on 05/08/17 12:56; Admin Dose 1 EA; Start 05/08/17 at 12:00; Stop 05/22/17 at 09:01 JJ BAE May 08, 2017 14:33
--- NOTE | 2017-05-08 14:58 | CONS ---
Date/Time of Note Date/Time of Note DATE: 05/08/17 TIME: 14:57 Assessment/Plan Assessment/Plan Chief Complaint/Hosp Course Extensive bilateral acute pulmonary emboli. No saddle embolus. Lovenox 1 mg/kg subQ b.i.d 3.8 x 2.4 cm mass right middle lobe highly suspicious for primary lung cancer. No evidence of metastatic disease in the chest complete staging with CT ABD PULM F-UP MASS BX WHEN CLINICALLY STABLE HOLD LOVENOX PREOP TO BX Shortness of breath. secondary to pulmonary embolism. 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 OBTAIN AND REVIEW OLD RECORD Lactic acidosis, unclear source. Signs of possible sepsis. Continue broad-spectrum antibiotics Questionable history of thyroid issues. Check thyroid panel, continue levothyroxine. Gastrointestinal prophylaxis. PPI. Deep venous thrombosis prophylaxis. Lovenox INCOMPLETE RECORD Problems: Consultation Date/Type/Reason Admit Date/Time May 06, 2017 at 14:11 Initial Consult Date 05/05/17 Type of Consultation: [facility] Referring Provider: MANJINDER HOWELL 24 HR Interval Summary Free Text/Dictation ALL NOTED Exam/Review of Systems Vital Signs Vitals Vital Signs Date Time Temp Pulse Resp B/P Pulse Ox O2 Delivery O2 Flow Rate FiO2 05/08/17 13:44 95 2.0 05/08/17 13:44 101 24 Nasal Cannula 05/08/17 12:03 98.0 124/76 05/07/17 04:54 32 Intake and Output 05/07/17 05/07/17 05/08/17 15:00 23:00 07:00 Intake Total 100 ml 570 ml 550 ml Balance 100 ml 570 ml 550 ml Exam GENERAL: The patient is lying in bed, answering questions appropriately. No acute distress. HEENT: Pupils equal, round, react to light. Extraocular muscles intact. NECK: Slightly enlarged. Surgical scar noted on the right side of the neck, otherwise supple. LUNGS: Clear to auscultation bilaterally. No wheezes. CARDIOVASCULAR: Tachycardic heart rate but regular. No rubs or gallops. ABDOMEN: Soft, nontender, nondistended. Normal bowel sounds. No rebound or guarding. MUSCULOSKELETAL: No lower extremity edema bilaterally. NEUROLOGIC: No focal deficits. Results Result Diagram: 05/08/17 1005 05/08/17 1005 Results 24 hrs Laboratory Tests Test 05/07/17 15:45 05/07/17 17:05 05/07/17 21:31 05/08/17 08:08 Blood Gas Specimen Source Blood arterial Arterial Blood Date Drawn 05/07/2017 4:55:04 PM Arterial Blood pH (Temp corrected) 7.445 Arterial Blood pCO2 (Temp correct) 30.1 L Arterial Blood pO2 (Temp corrected) 74.2 L Arterial Blood HCO3 20.2 L Arterial Blood Base Excess -2.7 Arterial Blood Oxygen Saturation 94.7 L Simone Test ACCEPTAB Arterial Blood Gas Puncture Site Left Radial Arterial Blood Carboxyhemoglobin 0.1 Arterial Blood Methemoglobin 0.2 Blood Gas A-a O2 Differential 82.7 H Oxyhemoglobin Percent 94.4 Total Hemoglobin 14.1 Blood Gas Temperature 37.0 Blood Gas Modality NASAL CANNULA FiO2 27.0 Blood Gas Notified Whom RT Blood Gas Notified Time 05/07/2017 5:02:02 PM Bedside Glucose 135 169 120 Test 05/08/17 10:05 05/08/17 12:32 White Blood Count 7.0 # Red Blood Count 4.38 Hemoglobin 12.6 Hematocrit 39.2 Mean Corpuscular Volume 89.5 Mean Corpuscular Hemoglobin 28.8 L Mean Corpuscular Hemoglobin Concent 32.1 Red Cell Distribution Width 14.7 H Platelet Count 188 Mean Platelet Volume 10.2 Neutrophils % 76.5 Lymphocytes % 15.1 Monocytes % 4.0 Eosinophils % 3.3 Basophils % 0.7 Nucleated Red Blood Cells % 0.0 Neutrophils # 5.4 Lymphocytes # 1.1 Monocytes # 0.3 Eosinophils # 0.2 Basophils # 0.1 Nucleated Red Blood Cells # 0.0 Sodium Level 141 Potassium Level 4.1 Chloride Level 107 Carbon Dioxide Level 20 L Anion Gap 18 H Blood Urea Nitrogen 7 Creatinine 0.80 Glucose Level 140 Calcium Level 9.4 Bedside Glucose 146 Medications Medications Current Medications Ondansetron HCl (Zofran Inj) 4 mg Q6H PRN IV NAUSEA AND/OR VOMITING; Start at 17:30 Acetaminophen (Tylenol Tab) 650 mg Q6H PRN PO PAIN LEVEL 1-3 OR FEVER; Start at 17:30 Acetaminophen/ Hydrocodone Bitart ([place] (5/325)) 1 tab Q6H PRN PO MODERATE PAIN LEVEL 4-6; Start 05/05/17 at 17:30 Morphine Sulfate (morphine) 2 mg Q4H PRN IV SEVERE PAIN LEVEL 7-10; Start 05/05 at 17:30 Magnesium Hydroxide (Milk Of Mag) 30 ml DAILY PRN PO CONSTIPATION; Start at 17:30 Sodium Biphosphate/ Sodium Phosphate (Fleet Enema) 133 ml DAILY PRN [place] CONSTIPATION; Start 05/05/17 at 17:30 Pantoprazole 40 mg 40 mg DAILY@06 PO Last administered on 05/08/17 06:16; Admin Dose 40 MG; Start 05/06/17 at 06:00 Sodium Chloride (1/2 NS) 1,000 ml @ 75 mls/hr [id number] IV Last administered on 05/07/17 22:31; Admin Dose 75 MLS/HR; Start 05/05/17 at 17:11 Lorazepam 0.5 mg 0.5 mg Q6H PRN PO ANXIETY; Start 05/05/17 at 17:30 Piperacillin Sod/ Tazobactam Sod (Zosyn 3.375gm/ 100 ml (Pmx)) 100 ml @ 200 mls /hr Q6 IVPB Last administered on 05/08/17 12:51; Admin Dose 200 MLS/HR; Start 05/05/17 at 18:00 Vancomycin HCl (Vanco Iv Per Pharmacy) VANCOMYCIN PER PHARMACY NOTE XX ; Start 05/05/17 at 17:30 Hydralazine HCl (Apresoline) 10 mg Q6H PRN IV ELEVATED BLOOD PRESSURE; Start at 17:30 Nitroglycerin (Nitroglycerin (Sl Tab) 0.4 Mg) 1 tab Q5M PRN SL ANGINA; Start at 17:30 Cholecalciferol (Vitamin D) 400 units DAILY PO Last administered on 05/08/17 09:00; Admin Dose 400 UNITS; Start 05/06/17 at 09:00 Vitamin E (Vitamin E) 400 units DAILY PO Last administered on 05/08/17 09:00; Admin Dose 400 UNITS; Start 05/06/17 at 09:00 Enoxaparin Sodium (Lovenox) 75 mg Q12 SC Last administered on 05/08/17 09:03; Admin Dose 75 MG; Start 05/05/17 at 21:00 Docusate Sodium (Colace) 100 mg Q12 PO Last administered on 05/07/17 21:35; Admin Dose 100 MG; Start 05/06/17 at 21:00 Aspirin (Halfprin) 81 mg DAILY PO Last administered on 05/08/17 09:00; Admin Dose 81 MG; Start 05/07/17 at 09:00 Atorvastatin Calcium (Lipitor) 10 mg HS PO Last administered on 05/07/17 21:35 ; Admin Dose 10 MG; Start 05/06/17 at 21:00 Miscellaneous Information 1 ea NOTE XX ; Start 05/06/17 at 14:30 Glucose (Glutose) 15 gm Q15M PRN PO DECREASED GLUCOSE; Start 05/06/17 at 14:30 Glucose (Glutose) 22.5 gm Q15M PRN PO DECREASED GLUCOSE; Start 05/06/17 at 14: 30 Dextrose (D50w Syringe) 25 ml Q15M PRN IV DECREASED GLUCOSE; Start 05/06/17 at 14:30 Dextrose (D50w Syringe) 50 ml Q15M PRN IV DECREASED GLUCOSE; Start 05/06/17 at 14:30 Glucagon (Glucagen) 1 mg Q15M PRN IM DECREASED GLUCOSE; Start 05/06/17 at 14:30 Glucose (Glutose) 15 gm Q15M PRN BUCCAL DECREASED GLUCOSE; Start 05/06/17 at 14 :30 Diagnostic Test (Pha) 1 ea 1 ea 02 XX ; Start 05/07/17 at 02:00 Vancomycin HCl/ Sodium Chloride (Vancocin/NS) 250 ml @ 83.333 mls/ hr Q12H IVPB Last administered on 05/08/17 13:29; Admin Dose 83.333 MLS/HR; Start at 13:00 Patient Own Medication 1 ea DAILY PO Last administered on 05/08/17 12:56; Admin Dose 1 EA; Start 05/08/17 at 12:00; Stop 05/22/17 at 09:01 ROSSANA ALARCON MD May 08, 2017 14:58
[2017-05-08] MEDS: ATORVASTATIN 10 MG TAB PO SCH (21:25)
[2017-05-09] VITALS (13 sets, daily range): BP systolic 120–130; BP diastolic 70–83; PULSE 89–106; RESP 17–18
[2017-05-09] MEDS: VANCOMYCIN 1.5 GM in SOD CHLORIDE 0.9% 250 ML IVPB SCH ×2 (00:55→15:24)
[2017-05-09] MEDS: SOD CHLORIDE 0.45% 1,000 ML IV SCH ×2 (00:58→15:24)
[2017-05-09] MEDS: ACCUCHECK AT 2AM (Patients on SS coverage) XX SCH (02:00)
[2017-05-09] MEDS: ALBUTEROL/IPRATROPIUM (NEB) 3 ML AMP HHN PRN (03:29)
[2017-05-09] MEDS: PIPER-TAZO 3.375 GM IV (PMX) 100 ML IVPB SCH ×4 (05:41→23:25)
[2017-05-09] MEDS: PANTOPRAZOLE (EC) 40 MG TAB PO SCH (05:41)
[2017-05-09 06:56] LABS: ADD SCAN DIFF NO
[2017-05-09 07:03] LABS: BASOPHIL # 0.1 10^3/ul (0.0-0.1); EOSINOPHILS # 0.3 10^3/ul (0.0-0.5); EOSINOPHILS % 4.8 % (0.0-7.0); HEMATOCRIT 37.3 % (37.0-47.0); HEMOGLOBIN 12.3 g/dl (12.0-16.0); LYMPHOCYTES # 0.7 10^3/ul (0.8-2.9); MEAN CORPUSCULAR HEMOGLOBIN 29.5 pg (29.0-33.0); MEAN CORPUSCULAR VOLUME 89.4 fl (82.0-101.0); MEAN PLATELET VOLUME 11.3 fl (7.4-10.4); MONOCYTE # 0.3 10^3/ul (0.3-0.9); MONOCYTES % 5.4 % (0.0-11.0); NEUTROPHIL # 4.7 10^3/ul (1.6-7.5); NEUTROPHILS % 76.3 % (39.0-77.0); PLATELET COUNT 181 10^3/UL (140-415); RED BLOOD COUNT 4.17 10^6/ul (4.20-5.40); RED CELL DISTRIBUTION WIDTH 14.5 % (11.5-14.5); WHITE BLOOD COUNT 6.1 10^3/ul (4.8-10.8)
[2017-05-09] MEDS: INSULIN ASPART [NOVOLOG] 3 ML PEN SC SCH ×4 (07:55→20:59)
[2017-05-09 08:25] LABS: CALCIUM 9.3 mg/dl (8.4-10.2); CREATININE 0.57 mg/dl (0.44-1.00); POTASSIUM 4.6 mmol/L (3.5-5.1)
[2017-05-09] MEDS: DOCUSATE SODIUM 100 MG CAP PO SCH ×2 (08:26→21:00)
[2017-05-09] MEDS: LEVOTHYROXINE 100 MCG TAB PO SCH (08:26)
[2017-05-09] MEDS: CHOLECALCIFEROL 400 UNITS TAB PO SCH (08:26)
[2017-05-09] MEDS: ASPIRIN (EC) 81 MG TAB PO SCH (08:27)
[2017-05-09] MEDS: VITAMIN E 400 UNITS CAP PO SCH (08:27)
[2017-05-09] MEDS: ENOXAPARIN 80 MG/0.8 ML SYG SC SCH ×2 (08:29→21:02)
[2017-05-09] MEDS: LENALIDOMIDE 5 MG PO SCH (08:33)
--- NOTE | 2017-05-09 11:29 | CONS ---
Date/Time of Note Date/Time of Note DATE: 05/09/17 TIME: 11:26 Assessment/Plan Assessment/Plan Additional Assessment/Plan Assessment recommendations; 1. Patient admitted with shortness of breath discovered to have bilateral pulmonary emboli currently on anticoagulant. 2. Right lung mass/round infiltrate. Possibly representing pneumonia. 3. 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 4. Underlying sleep apnea. Continue current treatment. As outlined in my consultation note, the patient will need to have repeat CT done in 2 weeks time. Further workup will be dependent upon CT imaging at that time. Consultation Date/Type/Reason Admit Date/Time May 06, 2017 at 14:11 Initial Consult Date 05/08/17 Type of Consultation: Pulmonary Referring Provider: MANJINDER HOWELL 24 HR Interval Summary Free Text/Dictation Patient condition stable. Has remained hemodynamically stable. Denies any shortness breath, chest pain. General exam; middle-aged woman, awake and alert , currently in no distress. Exam/Review of Systems Vital Signs Vitals Vital Signs Date Time Temp Pulse Resp B/P Pulse Ox O2 Delivery O2 Flow Rate FiO2 05/09/17 11:01 98.3 90 18 124/83 93 05/09/17 10:57 3.0 05/09/17 03:29 Nasal Cannula 05/07/17 04:54 32 Intake and Output 05/08/17 05/08/17 05/09/17 14:59 22:59 06:59 Intake Total 200 ml 1600 ml 1800 ml Balance 200 ml 1600 ml 1800 ml Exam HEENT exam; supple neck, no JVD. No lymphadenopathy. Midline trachea. Patient has fair dentition. Pharynx is clear. There is a skin graft involving the right neck area. Chest exam; clear to ulceration. S1-S2 audible, no murmurs. Regular rhythm. Abdomen exam; soft, no organomegaly. Bowel sounds audible. Extremity exam; no peripheral edema. Pulses 1+ bilaterally. No clubbing. SURGERY SCHEDULER exam; patient is awake and alert moves all 4 extremity's on command. But has generalized weakness. Results Result Diagram: 05/09/17 0612 05/09/1712 Results 24 hrs Laboratory Tests Test 05/08/17 12:32 05/08/17 17:29 05/08/17 20:48 05/09/17 00:35 Bedside Glucose 146 142 125 Vancomycin Level Trough 10.2 Test 05/09/17 06:12 05/09/17 08:04 White Blood Count 6.1 Red Blood Count 4.17 L Hemoglobin 12.3 Hematocrit 37.3 Mean Corpuscular Volume 89.4 Mean Corpuscular Hemoglobin 29.5 Mean Corpuscular Hemoglobin Concent 33.0 Red Cell Distribution Width 14.5 Platelet Count 181 Mean Platelet Volume 11.3 H Neutrophils % 76.3 Lymphocytes % 12.0 L Monocytes % 5.4 Eosinophils % 4.8 Basophils % 1.0 Nucleated Red Blood Cells % 0.0 Neutrophils # 4.7 Lymphocytes # 0.7 L Monocytes # 0.3 Eosinophils # 0.3 Basophils # 0.1 Nucleated Red Blood Cells # 0.0 Sodium Level 140 Potassium Level 4.6 Chloride Level 109 Carbon Dioxide Level 21 Anion Gap 15 Blood Urea Nitrogen 8 Creatinine 0.57 Glucose Level 119 Lactic Acid Level 1.8 Calcium Level 9.3 Bedside Glucose 118 Medications Medications Current Medications Ondansetron HCl (Zofran Inj) 4 mg Q6H PRN IV NAUSEA AND/OR VOMITING; Start at 17:30 Acetaminophen (Tylenol Tab) 650 mg Q6H PRN PO PAIN LEVEL 1-3 OR FEVER Last administered on 05/09/17 03:12; Admin Dose 650 MG; Start 05/05/17 at 17:30 Acetaminophen/ Hydrocodone Bitart ([place] (5/325)) 1 tab Q6H PRN PO MODERATE PAIN LEVEL 4-6; Start 05/05/17 at 17:30 Morphine Sulfate (morphine) 2 mg Q4H PRN IV SEVERE PAIN LEVEL 7-10; Start 05/05 at 17:30 Magnesium Hydroxide (Milk Of Mag) 30 ml DAILY PRN PO CONSTIPATION; Start at 17:30 Sodium Biphosphate/ Sodium Phosphate (Fleet Enema) 133 ml DAILY PRN [place] CONSTIPATION; Start 05/05/17 at 17:30 Pantoprazole 40 mg 40 mg DAILY@06 PO Last administered on 05/09/17 05:41; Admin Dose 40 MG; Start 05/06/17 at 06:00 Sodium Chloride (1/2 NS) 1,000 ml @ 75 mls/hr [id number] IV Last administered on 05/09/17 00:58; Admin Dose 75 MLS/HR; Start 05/05/17 at 17:11 Lorazepam 0.5 mg 0.5 mg Q6H PRN PO ANXIETY; Start 05/05/17 at 17:30 Piperacillin Sod/ Tazobactam Sod (Zosyn 3.375gm/ 100 ml (Pmx)) 100 ml @ 200 mls /hr Q6 IVPB Last administered on 05/09/17 05:41; Admin Dose 200 MLS/HR; Start 05/05/17 at 18:00 Vancomycin HCl (Vanco Iv Per Pharmacy) VANCOMYCIN PER PHARMACY NOTE XX ; Start 05/05/17 at 17:30 Hydralazine HCl (Apresoline) 10 mg Q6H PRN IV ELEVATED BLOOD PRESSURE; Start at 17:30 Nitroglycerin (Nitroglycerin (Sl Tab) 0.4 Mg) 1 tab Q5M PRN SL ANGINA; Start at 17:30 Cholecalciferol (Vitamin D) 400 units DAILY PO Last administered on 05/09/17 08:26; Admin Dose 400 UNITS; Start 05/06/17 at 09:00 Vitamin E (Vitamin E) 400 units DAILY PO Last administered on 05/09/17 08:27; Admin Dose 400 UNITS; Start 05/06/17 at 09:00 Enoxaparin Sodium (Lovenox) 75 mg Q12 SC Last administered on 05/09/17 08:29; Admin Dose 75 MG; Start 05/05/17 at 21:00 Docusate Sodium (Colace) 100 mg Q12 PO Last administered on 05/09/17 08:26; Admin Dose 100 MG; Start 05/06/17 at 21:00 Aspirin (Halfprin) 81 mg DAILY PO Last administered on 05/09/17 08:27; Admin Dose 81 MG; Start 05/07/17 at 09:00 Atorvastatin Calcium (Lipitor) 10 mg HS PO Last administered on 05/08/17 21:25 ; Admin Dose 10 MG; Start 05/06/17 at 21:00 Miscellaneous Information 1 ea NOTE XX ; Start 05/06/17 at 14:30 Glucose (Glutose) 15 gm Q15M PRN PO DECREASED GLUCOSE; Start 05/06/17 at 14:30 Glucose (Glutose) 22.5 gm Q15M PRN PO DECREASED GLUCOSE; Start 05/06/17 at 14: 30 Dextrose (D50w Syringe) 25 ml Q15M PRN IV DECREASED GLUCOSE; Start 05/06/17 at 14:30 Dextrose (D50w Syringe) 50 ml Q15M PRN IV DECREASED GLUCOSE; Start 05/06/17 at 14:30 Glucagon (Glucagen) 1 mg Q15M PRN IM DECREASED GLUCOSE; Start 05/06/17 at 14:30 Glucose (Glutose) 15 gm Q15M PRN BUCCAL DECREASED GLUCOSE; Start 05/06/17 at 14 :30 Diagnostic Test (Pha) 1 ea 1 ea 02 XX ; Start 05/07/17 at 02:00 Vancomycin HCl/ Sodium Chloride (Vancocin/NS) 250 ml @ 83.333 mls/ hr Q12H IVPB Last administered on 05/09/17 00:55; Admin Dose 83.333 MLS/HR; Start at 13:00 Patient Own Medication 1 ea DAILY PO Last administered on 05/09/17 08:33; Admin Dose 1 EA; Start 05/08/17 at 12:00; Stop 05/22/17 at 09:01 DAVID LUX May 09, 2017 11:28
--- NOTE | 2017-05-09 20:22 | PN ---
Date/Time of Note Date/Time of Note DATE: 05/09/17 TIME: 20:19 Assessment/Plan VTE Prophylaxis VTE Prophylaxis Intervention: LMWH Lines/Catheters IV [facility]ter [facility] (from [facility] Peripheral IV Urinary Cath still in place: No Assessment/Plan Assessment/Plan 51-year-old female who presented with sudden shortness of breath now managed for the followin. Acute shortness of breath secondary to #2 : improved 2. Extensive bilateral acute pulmonary emboli 3. Right middle lobe mass suspicious for primary lung cancer without evidence of metastatic disease 4. 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 Hypothyroidism: still with suboptimal control. : dosage gently increased to 100mcg 6. Lactic acidosis likely secondary to respiratory insufficiency: slowly improving 7. Prediabetes with hemoglobin A1c of 6.2 8. Dyslipidemia 9. Obesity r/o OHS versus SRAVANTHI 10. Chronic cognitive deficits, ?dementia vs Chronic MR PLAN: Pulm also recommends no Biopsy for now / transition to Oral meds / wean off O2 Continue home Revlimid / appreciate oncology review Lactic acid normal now, will d/c IVF Diabetic diet with sliding scale insulin Low-dose statin/aspirin therapy Continue supportive care F/u consultants recs / PT eval Subjective 24 Hr Interval Summary Free Text/Dictation patient looks better sitting on the edge of the bed, ambulates to bathrom, still requiring O2 Exam/Review of Systems Vital Signs Vitals Vital Signs Date Time Temp Pulse Resp B/P Pulse Ox O2 Delivery O2 Flow Rate FiO2 05/09/17 20:14 98.2 88 17 120/71 94 05/09/17 12:08 3.0 05/09/17 03:29 Nasal Cannula 05/07/17 04:54 32 Intake and Output 05/08/17 05/08/17 05/09/17 15:00 23:00 07:00 Intake Total 200 ml 1600 ml 1800 ml Balance 200 ml 1600 ml 1800 ml Exam Constitutional: alert, distress (mild), oriented Psych: other (blank, no more confusion?) Head: normocephalic Eyes: PERRL ENMT: mucosa pink and moist, other (o2 via NC) Neck: supple Respiratory: diminished breath sounds (L>>R) Cardiovascular: murmurs/extra sounds, regular rate and rhythm Gastrointestinal: bowel sounds, non-tender, soft Extremities: No edema Neurological: nl mental status Results Result Diagram: 05/09/17 0612 05/09/17 0612 Results 24 hrs Laboratory Tests Test 05/08/17 20:48 05/09/17 00:35 05/09/17 06:12 05/09/17 08:04 Bedside Glucose 125 118 Vancomycin Level Trough 10.2 White Blood Count 6.1 Red Blood Count 4.17 L Hemoglobin 12.3 Hematocrit 37.3 Mean Corpuscular Volume 89.4 Mean Corpuscular Hemoglobin 29.5 Mean Corpuscular Hemoglobin Concent 33.0 Red Cell Distribution Width 14.5 Platelet Count 181 Mean Platelet Volume 11.3 H Neutrophils % 76.3 Lymphocytes % 12.0 L Monocytes % 5.4 Eosinophils % 4.8 Basophils % 1.0 Nucleated Red Blood Cells % 0.0 Neutrophils # 4.7 Lymphocytes # 0.7 L Monocytes # 0.3 Eosinophils # 0.3 Basophils # 0.1 Nucleated Red Blood Cells # 0.0 Sodium Level 140 Potassium Level 4.6 Chloride Level 109 Carbon Dioxide Level 21 Anion Gap 15 Blood Urea Nitrogen 8 Creatinine 0.57 Glucose Level 119 Lactic Acid Level 1.8 Calcium Level 9.3 Test 05/09/17 12:29 05/09/17 18:01 Bedside Glucose 101 104 Medications Medications Current Medications Ondansetron HCl (Zofran Inj) 4 mg Q6H PRN IV NAUSEA AND/OR VOMITING; Start at 17:30 Acetaminophen (Tylenol Tab) 650 mg Q6H PRN PO PAIN LEVEL 1-3 OR FEVER Last administered on 05/09/17t 03:12; Admin Dose 650 MG; Start 05/05/17 at 17:30 Acetaminophen/ Hydrocodone Bitart ([place] (5/325)) 1 tab Q6H PRN PO MODERATE PAIN LEVEL 4-6; Start 05/05/17 at 17:30 Morphine Sulfate (morphine) 2 mg Q4H PRN IV SEVERE PAIN LEVEL 7-10; Start 05/05 at 17:30 Magnesium Hydroxide (Milk Of Mag) 30 ml DAILY PRN PO CONSTIPATION; Start at 17:30 Sodium Biphosphate/ Sodium Phosphate (Fleet Enema) 133 ml DAILY PRN [place] CONSTIPATION; Start 05/05/17 at 17:30 Pantoprazole 40 mg 40 mg DAILY@06 PO Last administered on 05/09/17 05:41; Admin Dose 40 MG; Start 05/06/17 at 06:00 Sodium Chloride (1/2 NS) 1,000 ml @ 75 mls/hr [id number] IV Last administered on 05/09/17 15:24; Admin Dose 75 MLS/HR; Start 05/05/17 at 17:11 Lorazepam 0.5 mg 0.5 mg Q6H PRN PO ANXIETY; Start 05/05/17 at 17:30 Piperacillin Sod/ Tazobactam Sod (Zosyn 3.375gm/ 100 ml (Pmx)) 100 ml @ 200 mls /hr Q6 IVPB Last administered on 05/09/17 18:15; Admin Dose 200 MLS/HR; Start 05/05/17 at 18:00 Vancomycin HCl (Vanco Iv Per Pharmacy) VANCOMYCIN PER PHARMACY NOTE XX ; Start 05/05/17 at 17:30 Hydralazine HCl (Apresoline) 10 mg Q6H PRN IV ELEVATED BLOOD PRESSURE; Start at 17:30 Nitroglycerin (Nitroglycerin (Sl Tab) 0.4 Mg) 1 tab Q5M PRN SL ANGINA; Start at 17:30 Cholecalciferol (Vitamin D) 400 units DAILY PO Last administered on 05/09/17 08:26; Admin Dose 400 UNITS; Start 05/06/17 at 09:00 Vitamin E (Vitamin E) 400 units DAILY PO Last administered on 05/09/17 08:27; Admin Dose 400 UNITS; Start 05/06/17 at 09:00 Enoxaparin Sodium (Lovenox) 75 mg Q12 SC Last administered on 05/09/17 08:29; Admin Dose 75 MG; Start 05/05/17 at 21:00 Docusate Sodium (Colace) 100 mg Q12 PO Last administered on 05/09/17 08:26; Admin Dose 100 MG; Start 05/06/17 at 21:00 Aspirin (Halfprin) 81 mg DAILY PO Last administered on 05/09/17 08:27; Admin Dose 81 MG; Start 05/07/17 at 09:00 Atorvastatin Calcium (Lipitor) 10 mg HS PO Last administered on 05/08/17 21:25 ; Admin Dose 10 MG; Start 05/06/17 at 21:00 Miscellaneous Information 1 ea NOTE XX ; Start 05/06/17 at 14:30 Glucose (Glutose) 15 gm Q15M PRN PO DECREASED GLUCOSE; Start 05/06/17 at 14:30 Glucose (Glutose) 22.5 gm Q15M PRN PO DECREASED GLUCOSE; Start 05/06/17 at 14: 30 Dextrose (D50w Syringe) 25 ml Q15M PRN IV DECREASED GLUCOSE; Start 05/06/17 at 14:30 Dextrose (D50w Syringe) 50 ml Q15M PRN IV DECREASED GLUCOSE; Start 05/06/17 at 14:30 Glucagon (Glucagen) 1 mg Q15M PRN IM DECREASED GLUCOSE; Start 05/06/17 at 14:30 Glucose (Glutose) 15 gm Q15M PRN BUCCAL DECREASED GLUCOSE; Start 05/06/17 at 14 :30 Diagnostic Test (Pha) 1 ea 1 ea 02 XX ; Start 05/07/17 at 02:00 Vancomycin HCl/ Sodium Chloride (Vancocin/NS) 250 ml @ 83.333 mls/ hr Q12H IVPB Last administered on 05/09/17 15:24; Admin Dose 83.333 MLS/HR; Start at 13:00 Patient Own Medication 1 ea DAILY PO Last administered on 05/09/17 08:33; Admin Dose 1 EA; Start 05/08/17 at 12:00; Stop 05/22/17 at 09:01 Procedures Procedures PROCEDURE: Chest 1 views. CLINICAL INDICATION: Shortness of breath TECHNIQUE: AP views of the chest was obtained. COMPARISON: May 05, [address] May 05, 2017 FINDINGS: The heart is large. Right-sided chest port is stable and appears in grossly appropriate location. Mild interstitial prominence in both lungs is unchanged. Right middle lobe mass is stable. Osseous structures are unchanged. IMPRESSION: Cardiomegaly . Stable mild interstitial prominence in both lungs. Interstitial prominence could be chronic. Stable right middle lobe mass. RPTAT: AA .Anand Melo MD, Date Time Electronically viewed and signed by .Anand Melo MD, on 05/08/2017 09:03 .P/ CC: JJ BAE BOLATITO M. May 09, 2017 20:22
[2017-05-09] MEDS: ATORVASTATIN 10 MG TAB PO SCH (21:00)
--- NOTE | 2017-05-09 23:51 | CONS ---
Date/Time of Note Date/Time of Note DATE: 05/09/17 TIME: 23:49 Assessment/Plan Assessment/Plan Chief Complaint/Hosp Course Extensive bilateral acute pulmonary emboli. No saddle embolus. Lovenox 1 mg/kg subQ b.i.d 3.8 x 2.4 cm mass right middle lobe highly suspicious for primary lung cancer. No evidence of metastatic disease in the chest complete staging with CT ABD PULM F-UP- REPEAT CT CHEST IN 2 WE , AFTER CT - WILL DECIDE RE BX Shortness of breath. secondary to pulmonary embolism. 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 OBTAIN AND REVIEW OLD RECORD Lactic acidosis, unclear source. Signs of possible sepsis. Continue broad-spectrum antibiotics Questionable history of thyroid issues. Check thyroid panel, continue levothyroxine. Gastrointestinal prophylaxis. PPI. Deep venous thrombosis prophylaxis. Lovenox INCOMPLETE RECORD Problems: Consultation Date/Type/Reason Admit Date/Time May 06, 2017 at 14:11 Initial Consult Date 05/05/17 Type of Consultation: [facility] Referring Provider: MANJINDER HOWELL 24 HR Interval Summary Free Text/Dictation ALL NOTED Exam/Review of Systems Vital Signs Vitals Vital Signs Date Time Temp Pulse Resp B/P Pulse Ox O2 Delivery O2 Flow Rate FiO2 05/09/17 22:26 3.0 05/09/17 20:14 98.2 88 17 120/71 94 05/09/17 03:29 Nasal Cannula 05/07/17 04:54 32 Intake and Output 05/08/17 05/08/17 05/09/17 15:00 23:00 07:00 Intake Total 200 ml 1600 ml 1800 ml Balance 200 ml 1600 ml 1800 ml Exam GENERAL: The patient is lying in bed, answering questions appropriately. No acute distress. HEENT: Pupils equal, round, react to light. Extraocular muscles intact. NECK: Slightly enlarged. Surgical scar noted on the right side of the neck, otherwise supple. LUNGS: Clear to auscultation bilaterally. No wheezes. CARDIOVASCULAR: Tachycardic heart rate but regular. No rubs or gallops. ABDOMEN: Soft, nontender, nondistended. Normal bowel sounds. No rebound or guarding. MUSCULOSKELETAL: No lower extremity edema bilaterally. NEUROLOGIC: No focal deficits. Results Result Diagram: 05/09/1712 6/29/17 0612 Results 24 hrs Laboratory Tests Test 05/09/17 00:35 05/09/17 06:12 05/09/17 08:04 05/09/17 12:29 Vancomycin Level Trough 10.2 White Blood Count 6.1 Red Blood Count 4.17 L Hemoglobin 12.3 Hematocrit 37.3 Mean Corpuscular Volume 89.4 Mean Corpuscular Hemoglobin 29.5 Mean Corpuscular Hemoglobin Concent 33.0 Red Cell Distribution Width 14.5 Platelet Count 181 Mean Platelet Volume 11.3 H Neutrophils % 76.3 Lymphocytes % 12.0 L Monocytes % 5.4 Eosinophils % 4.8 Basophils % 1.0 Nucleated Red Blood Cells % 0.0 Neutrophils # 4.7 Lymphocytes # 0.7 L Monocytes # 0.3 Eosinophils # 0.3 Basophils # 0.1 Nucleated Red Blood Cells # 0.0 Sodium Level 140 Potassium Level 4.6 Chloride Level 109 Carbon Dioxide Level 21 Anion Gap 15 Blood Urea Nitrogen 8 Creatinine 0.57 Glucose Level 119 Lactic Acid Level 1.8 Calcium Level 9.3 Bedside Glucose 118 101 Test 05/09/17 18:01 05/09/17 20:59 Bedside Glucose 104 124 Medications Medications Current Medications Ondansetron HCl (Zofran Inj) 4 mg Q6H PRN IV NAUSEA AND/OR VOMITING; Start at 17:30 Acetaminophen (Tylenol Tab) 650 mg Q6H PRN PO PAIN LEVEL 1-3 OR FEVER Last administered on 05/09/17 03:12; Admin Dose 650 MG; Start 05/05/17 at 17:30 Acetaminophen/ Hydrocodone Bitart ([place] (5/325)) 1 tab Q6H PRN PO MODERATE PAIN LEVEL 4-6; Start 05/05/17 at 17:30 Morphine Sulfate (morphine) 2 mg Q4H PRN IV SEVERE PAIN LEVEL 7-10; Start 05/05 at 17:30 Magnesium Hydroxide (Milk Of Mag) 30 ml DAILY PRN PO CONSTIPATION; Start at 17:30 Sodium Biphosphate/ Sodium Phosphate (Fleet Enema) 133 ml DAILY PRN [place] CONSTIPATION; Start 05/05/17 at 17:30 Pantoprazole 40 mg 40 mg DAILY@06 PO Last administered on 05/09/17 05:41; Admin Dose 40 MG; Start 05/06/17 at 06:00 Sodium Chloride (1/2 NS) 1,000 ml @ 75 mls/hr [id number] IV Last administered on 05/09/17 15:24; Admin Dose 75 MLS/HR; Start 05/05/17 at 17:11 Lorazepam 0.5 mg 0.5 mg Q6H PRN PO ANXIETY; Start 05/05/17 at 17:30 Piperacillin Sod/ Tazobactam Sod (Zosyn 3.375gm/ 100 ml (Pmx)) 100 ml @ 200 mls /hr Q6 IVPB Last administered on 05/09/17 23:25; Admin Dose 200 MLS/HR; Start 05/05/17 at 18:00 Vancomycin HCl (Vanco Iv Per Pharmacy) VANCOMYCIN PER PHARMACY NOTE XX ; Start 05/05/17 at 17:30 Hydralazine HCl (Apresoline) 10 mg Q6H PRN IV ELEVATED BLOOD PRESSURE; Start at 17:30 Nitroglycerin (Nitroglycerin (Sl Tab) 0.4 Mg) 1 tab Q5M PRN SL ANGINA; Start at 17:30 Cholecalciferol (Vitamin D) 400 units DAILY PO Last administered on 05/09/17 08:26; Admin Dose 400 UNITS; Start 05/06/17 at 09:00 Vitamin E (Vitamin E) 400 units DAILY PO Last administered on 05/09/17 08:27; Admin Dose 400 UNITS; Start 05/06/17 at 09:00 Enoxaparin Sodium (Lovenox) 75 mg Q12 SC Last administered on 05/09/17 21:02; Admin Dose 75 MG; Start 05/05/17 at 21:00; Stop 05/10/17 at 06:00 Docusate Sodium (Colace) 100 mg Q12 PO Last administered on 05/09/17 21:00; Admin Dose 100 MG; Start 05/06/17 at 21:00 Aspirin (Halfprin) 81 mg DAILY PO Last administered on 05/09/17 08:27; Admin Dose 81 MG; Start 05/07/17 at 09:00 Atorvastatin Calcium (Lipitor) 10 mg HS PO Last administered on 05/09/17 21:00 ; Admin Dose 10 MG; Start 05/06/17 at 21:00 Miscellaneous Information 1 ea NOTE XX ; Start 05/06/17 at 14:30 Glucose (Glutose) 15 gm Q15M PRN PO DECREASED GLUCOSE; Start 05/06/17 at 14:30 Glucose (Glutose) 22.5 gm Q15M PRN PO DECREASED GLUCOSE; Start 05/06/17 at 14: 30 Dextrose (D50w Syringe) 25 ml Q15M PRN IV DECREASED GLUCOSE; Start 05/06/17 at 14:30 Dextrose (D50w Syringe) 50 ml Q15M PRN IV DECREASED GLUCOSE; Start 05/06/17 at 14:30 Glucagon (Glucagen) 1 mg Q15M PRN IM DECREASED GLUCOSE; Start 05/06/17 at 14:30 Glucose (Glutose) 15 gm Q15M PRN BUCCAL DECREASED GLUCOSE; Start 05/06/17 at 14 :30 Diagnostic Test (Pha) 1 ea 1 ea 02 XX ; Start 05/07/17 at 02:00 Vancomycin HCl/ Sodium Chloride (Vancocin/NS) 250 ml @ 83.333 mls/ hr Q12H IVPB Last administered on 05/09/17 15:24; Admin Dose 83.333 MLS/HR; Start at 13:00 Patient Own Medication 1 ea DAILY PO Last administered on 05/09/17 08:33; Admin Dose 1 EA; Start 05/08/17 at 12:00; Stop 05/22/17 at 09:01 Apixaban (Eliquis) 10 mg BID PO ; Start 05/10/17 at 09:00; Stop 05/17/17 at 08:59 Apixaban (Eliquis) 5 mg BID PO ; Start 05/17/17 at 09:00 ROSSANA ALARCON MD May 09, 2017 23:51
[2017-05-10] VITALS (16 sets, daily range): BP systolic 107–137; BP diastolic 60–85; PULSE 83–95; RESP 17–21
[2017-05-10] MEDS: VANCOMYCIN 1.5 GM in SOD CHLORIDE 0.9% 250 ML IVPB SCH ×2 (00:14→13:58)
[2017-05-10] MEDS: ACCUCHECK AT 2AM (Patients on SS coverage) XX SCH (02:00)
[2017-05-10] MEDS: SOD CHLORIDE 0.45% 1,000 ML IV SCH ×2 (03:56→17:11)
[2017-05-10] MEDS: LEVOTHYROXINE 100 MCG TAB PO SCH (06:07)
[2017-05-10] MEDS: PANTOPRAZOLE (EC) 40 MG TAB PO SCH (06:07)
[2017-05-10] MEDS: PIPER-TAZO 3.375 GM IV (PMX) 100 ML IVPB SCH ×4 (06:07→23:57)
[2017-05-10] MEDS: INSULIN ASPART [NOVOLOG] 3 ML PEN SC SCH ×4 (07:44→20:27)
[2017-05-10] MEDS: ASPIRIN (EC) 81 MG TAB PO SCH (08:15)
[2017-05-10] MEDS: LENALIDOMIDE 5 MG PO SCH (08:15)
[2017-05-10] MEDS: VITAMIN E 400 UNITS CAP PO SCH (08:17)
[2017-05-10] MEDS: CHOLECALCIFEROL 400 UNITS TAB PO SCH (08:17)
[2017-05-10] MEDS: DOCUSATE SODIUM 100 MG CAP PO SCH ×2 (08:17→20:27)
[2017-05-10] MEDS: APIXABAN 5 MG TABLET PO SCH ×2 (08:52→20:27)
[2017-05-10 08:53] LABS: BASOPHIL # 0.1 10^3/ul (0.0-0.1); BASOPHILS % 0.9 % (0.0-2.0); EOSINOPHILS # 0.3 10^3/ul (0.0-0.5); EOSINOPHILS % 5.4 % (0.0-7.0); HEMOGLOBIN 12.6 g/dl (12.0-16.0); LYMPHOCYTES # 0.6 10^3/ul (0.8-2.9); LYMPHOCYTES % 11.1 % (15.0-51.0); MEAN CORPUSCULAR HGB CONC 33.2 g/dl (32.0-37.0); MEAN CORPUSCULAR VOLUME 87.4 fl (82.0-101.0); MEAN PLATELET VOLUME 10.2 fl (7.4-10.4); MONOCYTE # 0.3 10^3/ul (0.3-0.9); MONOCYTES % 5.9 % (0.0-11.0); NEUTROPHIL # 4.4 10^3/ul (1.6-7.5); PLATELET COUNT 203 10^3/UL (140-415); RED BLOOD COUNT 4.35 10^6/ul (4.20-5.40); RED CELL DISTRIBUTION WIDTH 14.3 % (11.5-14.5); WHITE BLOOD COUNT 5.8 10^3/ul (4.8-10.8)
[2017-05-10 09:00] LABS: ADD SCAN DIFF NO
[2017-05-10 09:15] LABS: CALCIUM 9.3 mg/dl (8.4-10.2); CREATININE 0.67 mg/dl (0.44-1.00); POTASSIUM 3.8 mmol/L (3.5-5.1)
--- NOTE | 2017-05-10 10:19 | CONS ---
Date/Time of Note Date/Time of Note DATE: 05/10/17 TIME: 10:17 Assessment/Plan Assessment/Plan Additional Assessment/Plan Assessment recommendations; 1. Patient admitted for shortness of breath discovered to have bilateral pulmonary emboli currently on anticoagulation. 2. Right upper lobe lung lesion which possibly could be round pneumonia. However underlying mass lesion cannot be excluded. 3. Prior history of neck cancer status post surgery and skin grafting. 4. Possibly some element of mental retardation. The patient is slow to respond to questions. Continue current treatment. As outlined earlier on my previous note, patient would need to have a follow-up CT imaging of the chest done in 2 weeks time to ensure resolution of the right upper lobe lesion. Failing that, patient would need to have further workup done depending upon the findings at that time. Consultation Date/Type/Reason Admit Date/Time May 06, 2017 at 14:11 Initial Consult Date 05/08/17 Type of Consultation: Pulmonary/critical care Referring Provider: MANJINDER HOWELL 24 HR Interval Summary Free Text/Dictation Patient condition stable. Remains awake alert. Has remained hemodynamically stable. General exam; middle-aged woman, awake alert currently in no distress. Exam/Review of Systems Vital Signs Vitals Vital Signs Date Time Temp Pulse Resp B/P Pulse Ox O2 Delivery O2 Flow Rate FiO2 05/10/17 08:12 87 05/10/17 07:55 3.0 05/10/17 06:57 98.4 18 125/81 96 05/09/17 03:29 Nasal Cannula 05/07/17 04:54 32 Intake and Output 05/09/17 05/09/17 05/10/17 15:00 23:00 07:00 Intake Total 720 ml 1750 ml Balance 720 ml 1750 ml Exam HEENT exam; supple neck, no JVD. No lymphadenopathy. Midline trachea. No thyromegaly. No neck masses. There is a skin graft involving the right neck. She has fair dentition. Pupils are midsize and reactive to light. Chest exam; clear to auscultation. S1-S2 audible, no murmurs. Regular rhythm. Abdomen exam; soft, nontender. No organomegaly. Bowel sounds audible. Extremity exam; no peripheral edema. Pulses 1+ bilaterally. No clubbing. [employer] exam; no focal deficit. Results Result Diagram: 05/10/17 0805 05/10/17 0805 Results 24 hrs Laboratory Tests Test 05/09/17 12:29 05/09/17 18:01 05/09/17 20:59 05/10/17 07:43 Bedside Glucose 101 104 124 112 Test 05/10/17 08:05 White Blood Count 5.8 Red Blood Count 4.35 Hemoglobin 12.6 Hematocrit 38.0 Mean Corpuscular Volume 87.4 Mean Corpuscular Hemoglobin 29.0 Mean Corpuscular Hemoglobin Concent 33.2 Red Cell Distribution Width 14.3 Platelet Count 203 Mean Platelet Volume 10.2 Neutrophils % 76.0 Lymphocytes % 11.1 L Monocytes % 5.9 Eosinophils % 5.4 Basophils % 0.9 Nucleated Red Blood Cells % 0.0 Neutrophils # 4.4 Lymphocytes # 0.6 L Monocytes # 0.3 Eosinophils # 0.3 Basophils # 0.1 Nucleated Red Blood Cells # 0.0 Sodium Level 137 Potassium Level 3.8 Chloride Level 104 Carbon Dioxide Level 26 Anion Gap 11 Blood Urea Nitrogen 9 Creatinine 0.67 Glucose Level 109 Calcium Level 9.3 Medications Medications Current Medications Ondansetron HCl (Zofran Inj) 4 mg Q6H PRN IV NAUSEA AND/OR VOMITING; Start at 17:30 Acetaminophen (Tylenol Tab) 650 mg Q6H PRN PO PAIN LEVEL 1-3 OR FEVER Last administered on 05/09/17 03:12; Admin Dose 650 MG; Start 05/05/17 at 17:30 Acetaminophen/ Hydrocodone Bitart ([place] (5/325)) 1 tab Q6H PRN PO MODERATE PAIN LEVEL 4-6; Start 05/05/17 at 17:30 Morphine Sulfate (morphine) 2 mg Q4H PRN IV SEVERE PAIN LEVEL 7-10; Start 05/05 at 17:30 Magnesium Hydroxide (Milk Of Mag) 30 ml DAILY PRN PO CONSTIPATION; Start at 17:30 Sodium Biphosphate/ Sodium Phosphate (Fleet Enema) 133 ml DAILY PRN [place] CONSTIPATION; Start 05/05/17 at 17:30 Pantoprazole 40 mg 40 mg DAILY@06 PO Last administered on 05/10/17 06:07; Admin Dose 40 MG; Start 05/06/17 at 06:00 Sodium Chloride (1/2 NS) 1,000 ml @ 75 mls/hr [id number] IV Last administered on 05/10/17 03:56; Admin Dose 75 MLS/HR; Start 05/05/17 at 17:11 Lorazepam 0.5 mg 0.5 mg Q6H PRN PO ANXIETY; Start 05/05/17 at 17:30 Piperacillin Sod/ Tazobactam Sod (Zosyn 3.375gm/ 100 ml (Pmx)) 100 ml @ 200 mls /hr Q6 IVPB Last administered on 05/10/17 06:07; Admin Dose 200 MLS/HR; Start 05/05/17 at 18:00 Vancomycin HCl (Vanco Iv Per Pharmacy) VANCOMYCIN PER PHARMACY NOTE XX ; Start 05/05/17 at 17:30 Hydralazine HCl (Apresoline) 10 mg Q6H PRN IV ELEVATED BLOOD PRESSURE; Start at 17:30 Nitroglycerin (Nitroglycerin (Sl Tab) 0.4 Mg) 1 tab Q5M PRN SL ANGINA; Start at 17:30 Cholecalciferol (Vitamin D) 400 units DAILY PO Last administered on 05/10/17 08:17; Admin Dose 400 UNITS; Start 05/06/17 at 09:00 Vitamin E (Vitamin E) 400 units DAILY PO Last administered on 05/10/17 08:17; Admin Dose 400 UNITS; Start 05/06/17 at 09:00 Docusate Sodium (Colace) 100 mg Q12 PO Last administered on 05/10/17 08:17; Admin Dose 100 MG; Start 05/06/17 at 21:00 Aspirin (Halfprin) 81 mg DAILY PO Last administered on 05/10/17 08:15; Admin Dose 81 MG; Start 05/07/17 at 09:00 Atorvastatin Calcium (Lipitor) 10 mg HS PO Last administered on 05/09/17 21:00 ; Admin Dose 10 MG; Start 05/06/17 at 21:00 Miscellaneous Information 1 ea NOTE XX ; Start 05/06/17 at 14:30 Glucose (Glutose) 15 gm Q15M PRN PO DECREASED GLUCOSE; Start 05/06/17 at 14:30 Glucose (Glutose) 22.5 gm Q15M PRN PO DECREASED GLUCOSE; Start 05/06/17 at 14: 30 Dextrose (D50w Syringe) 25 ml Q15M PRN IV DECREASED GLUCOSE; Start 05/06/17 at 14:30 Dextrose (D50w Syringe) 50 ml Q15M PRN IV DECREASED GLUCOSE; Start 05/06/17 at 14:30 Glucagon (Glucagen) 1 mg Q15M PRN IM DECREASED GLUCOSE; Start 05/06/17 at 14:30 Glucose (Glutose) 15 gm Q15M PRN BUCCAL DECREASED GLUCOSE; Start 05/06/17 at 14 :30 Diagnostic Test (Pha) 1 ea 1 ea 02 XX ; Start 05/07/17 at 02:00 Vancomycin HCl/ Sodium Chloride (Vancocin/NS) 250 ml @ 83.333 mls/ hr Q12H IVPB Last administered on 05/10/17 00:14; Admin Dose 83.333 MLS/HR; Start at 13:00 Patient Own Medication 1 ea DAILY PO Last administered on 05/10/17 08:15; Admin Dose 1 EA; Start 05/08/17 at 12:00; Stop 05/22/17 at 09:01 Apixaban (Eliquis) 10 mg BID PO Last administered on 05/10/17 08:52; Admin Dose 10 MG; Start 05/10/17 at 09:00; Stop 05/17/17 at 08:59 Apixaban (Eliquis) 5 mg BID PO ; Start 05/17/17 at 09:00 DAVID LUX May 10, 2017 10:19
--- NOTE | 2017-05-10 11:05 | PN ---
Date/Time of Note Date/Time of Note DATE: 05/10/17 TIME: 11:01 Assessment/Plan Lines/Catheters IV Catheter Type (from [facility]): Peripheral IV Urinary Cath still in place: No Assessment/Plan Assessment/Plan 51-year-old female who presented with sudden shortness of breath now managed for the followin. Acute shortness of breath secondary to #2 : improved 2. Extensive bilateral acute pulmonary emboli 3. Right middle lobe mass suspicious for primary lung cancer without evidence of metastatic disease 4. 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 Hypothyroidism: still with suboptimal control. : dosage gently increased to 100mcg 6. Lactic acidosis likely secondary to respiratory insufficiency: slowly improving 7. Prediabetes with hemoglobin A1c of 6.2 8. Dyslipidemia 9. Obesity r/o OHS versus SRAVANTHI 10. Chronic cognitive deficits, ?dementia vs Chronic MR PLAN: Pulm also recommends no Biopsy for now / transition to Oral meds / wean off O2 Continue home Revlimid / appreciate oncology review Lactic acid normal now, will d/c IVF Diabetic diet with sliding scale insulin Low-dose statin/aspirin therapy Continue supportive care F/u consultants recs / PT eval Exam/Review of Systems Vital Signs Vitals Vital Signs Date Time Temp Pulse Resp B/P Pulse Ox O2 Delivery O2 Flow Rate FiO2 05/10/17 08:12 87 05/10/17 07:55 3.0 05/10/17 06:57 98.4 18 125/81 96 05/09/17 03:29 Nasal Cannula 05/07/17 04:54 32 Intake and Output 05/09/17 05/09/17 05/10/17 15:00 23:00 07:00 Intake Total 720 ml 1750 ml Balance 720 ml 1750 ml Results Result Diagram: 05/10/17 0805 05/10/17 0805 Results 24 hrs Laboratory Tests Test 05/09/17 12:29 05/09/17 18:01 05/09/17 20:59 05/10/17 07:43 Bedside Glucose 101 104 124 112 Test 05/10/17 08:05 White Blood Count 5.8 Red Blood Count 4.35 Hemoglobin 12.6 Hematocrit 38.0 Mean Corpuscular Volume 87.4 Mean Corpuscular Hemoglobin 29.0 Mean Corpuscular Hemoglobin Concent 33.2 Red Cell Distribution Width 14.3 Platelet Count 203 Mean Platelet Volume 10.2 Neutrophils % 76.0 Lymphocytes % 11.1 L Monocytes % 5.9 Eosinophils % 5.4 Basophils % 0.9 Nucleated Red Blood Cells % 0.0 Neutrophils # 4.4 Lymphocytes # 0.6 L Monocytes # 0.3 Eosinophils # 0.3 Basophils # 0.1 Nucleated Red Blood Cells # 0.0 Sodium Level 137 Potassium Level 3.8 Chloride Level 104 Carbon Dioxide Level 26 Anion Gap 11 Blood Urea Nitrogen 9 Creatinine 0.67 Glucose Level 109 Calcium Level 9.3 Medications Medications Current Medications Ondansetron HCl (Zofran Inj) 4 mg Q6H PRN IV NAUSEA AND/OR VOMITING; Start at 17:30 Acetaminophen (Tylenol Tab) 650 mg Q6H PRN PO PAIN LEVEL 1-3 OR FEVER Last administered on 05/09/17 03:12; Admin Dose 650 MG; Start 05/05/17 at 17:30 Acetaminophen/ Hydrocodone Bitart ([place] (5/325)) 1 tab Q6H PRN PO MODERATE PAIN LEVEL 4-6; Start 05/05/17 at 17:30 Morphine Sulfate (morphine) 2 mg Q4H PRN IV SEVERE PAIN LEVEL 7-10; Start 05/05 at 17:30 Magnesium Hydroxide (Milk Of Mag) 30 ml DAILY PRN PO CONSTIPATION; Start at 17:30 Sodium Biphosphate/ Sodium Phosphate (Fleet Enema) 133 ml DAILY PRN [place] CONSTIPATION; Start 05/05/17 at 17:30 Pantoprazole 40 mg 40 mg DAILY@06 PO Last administered on 05/10/17 06:07; Admin Dose 40 MG; Start 05/06/17 at 06:00 Sodium Chloride (1/2 NS) 1,000 ml @ 75 mls/hr [id number] IV Last administered on 05/10/17 03:56; Admin Dose 75 MLS/HR; Start 05/05/17 at 17:11 Lorazepam 0.5 mg 0.5 mg Q6H PRN PO ANXIETY; Start 05/05/17 at 17:30 Piperacillin Sod/ Tazobactam Sod (Zosyn 3.375gm/ 100 ml (Pmx)) 100 ml @ 200 mls /hr Q6 IVPB Last administered on 05/10/17 06:07; Admin Dose 200 MLS/HR; Start 05/05/17 at 18:00 Vancomycin HCl (Vanco Iv Per Pharmacy) VANCOMYCIN PER PHARMACY NOTE XX ; Start 05/05/17 at 17:30 Hydralazine HCl (Apresoline) 10 mg Q6H PRN IV ELEVATED BLOOD PRESSURE; Start at 17:30 Nitroglycerin (Nitroglycerin (Sl Tab) 0.4 Mg) 1 tab Q5M PRN SL ANGINA; Start at 17:30 Cholecalciferol (Vitamin D) 400 units DAILY PO Last administered on 05/10/17 08:17; Admin Dose 400 UNITS; Start 05/06/17 at 09:00 Vitamin E (Vitamin E) 400 units DAILY PO Last administered on 05/10/17 08:17; Admin Dose 400 UNITS; Start 05/06/17 at 09:00 Docusate Sodium (Colace) 100 mg Q12 PO Last administered on 05/10/17 08:17; Admin Dose 100 MG; Start 05/06/17 at 21:00 Aspirin (Halfprin) 81 mg DAILY PO Last administered on 05/10/17 08:15; Admin Dose 81 MG; Start 05/07/17 at 09:00 Atorvastatin Calcium (Lipitor) 10 mg HS PO Last administered on 05/09/17 21:00 ; Admin Dose 10 MG; Start 05/06/17 at 21:00 Miscellaneous Information 1 ea NOTE XX ; Start 05/06/17 at 14:30 Glucose (Glutose) 15 gm Q15M PRN PO DECREASED GLUCOSE; Start 05/06/17 at 14:30 Glucose (Glutose) 22.5 gm Q15M PRN PO DECREASED GLUCOSE; Start 05/06/17 at 14: 30 Dextrose (D50w Syringe) 25 ml Q15M PRN IV DECREASED GLUCOSE; Start 05/06/17 at 14:30 Dextrose (D50w Syringe) 50 ml Q15M PRN IV DECREASED GLUCOSE; Start 05/06/17 at 14:30 Glucagon (Glucagen) 1 mg Q15M PRN IM DECREASED GLUCOSE; Start 05/06/17 at 14:30 Glucose (Glutose) 15 gm Q15M PRN BUCCAL DECREASED GLUCOSE; Start 05/06/17 at 14 :30 Diagnostic Test (Pha) 1 ea 1 ea 02 XX ; Start 05/07/17 at 02:00 Vancomycin HCl/ Sodium Chloride (Vancocin/NS) 250 ml @ 83.333 mls/ hr Q12H IVPB Last administered on 05/10/17 00:14; Admin Dose 83.333 MLS/HR; Start at 13:00 Patient Own Medication 1 ea DAILY PO Last administered on 05/10/17 08:15; Admin Dose 1 EA; Start 05/08/17 at 12:00; Stop 05/22/17 at 09:01 Apixaban (Eliquis) 10 mg BID PO Last administered on 05/10/17 08:52; Admin Dose 10 MG; Start 05/10/17 at 09:00; Stop 05/17/17 at 08:59 Apixaban (Eliquis) 5 mg BID PO ; Start 05/17/17 at 09:00 JJ BAE May 10, 2017 11:05
[2017-05-10] MEDS ORDERED: SYN1 PO (16:40)
[2017-05-10] MEDS ORDERED: ASPI-664 PO (16:40)
[2017-05-10] MEDS ORDERED: ATOR10TA65 PO (16:40)
[2017-05-10] MEDS ORDERED: DOCU-216 PO (16:40)
[2017-05-10] MEDS ORDERED: NIT4 SL (16:40)
[2017-05-10] MEDS ORDERED: APIX5TAB PO (16:40)
--- NOTE | 2017-05-10 16:53 | PDOCDIS ---
Discharge Instructions DIAGNOSIS Discharge Diagnosis Pulmonary mass Bilateral pulmonary emboli CONDITION Patient Condition: Stable HOME CARE INSTRUCTIONS: Special Diet: 1800 felix ACTIVITY: Activity Restrictions: Slowly Increase Activity Rest between Activity REFERRALS Referring Provider: ROSSANA ALARCON MD Other Referrals Call Dr. Alarcon's office for follow-up. You have to see her next week Name, Degree: Rossana Alarcon MD Specialty: Oncology, Hematology Comments: Office Address: [address] [place] [address] Office Office JJ BAE May 10, 2017 16:53
--- NOTE | 2017-05-10 18:41 | DS ---
Date/Time of Note Date/Time of Note DATE: 05/10/17 TIME: 18:32 Discharge Summary Admission/Discharge Info Admit Date/Time May 06, 2017 at 14:11 Discharge Date/Time 05/10/17 . Discharge Diagnosis 51-year-old female who presented with sudden shortness of breath now managed for the followin. Acute shortness of breath secondary to #2 : resolved / stable on room air 2. Extensive bilateral acute pulmonary emboli : s/p lovenox, now on Eliquis 3. Right middle lobe mass suspicious for primary lung cancer without evidence of metastatic disease: Needs repeat CT in 2 weeks to reassess 4. 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 Hypothyroidism: still with suboptimal control. : dosage gently increased to 100mcg 6. Lactic acidosis likely secondary to respiratory insufficiency: resolved 7. Prediabetes with hemoglobin A1c of 6.2 8. Dyslipidemia 9. Obesity r/o OHS versus SRAVANTHI: needs outpt sleep study 10. Chronic cognitive deficits, ?Early dementia vs Chronic MR 11. Mild Pulmonary HTN on Echo ?12/13 #2 Consults Hematology / oncology: [facility]: Jason IR : Lennie . Procedures See hospital course . Hospital Course Full details are available in the chart for review, in summary this pleasant 51- year-old female presented to the emergency room with shortness of breath. She was evaluated with a CT angiogram and this showed extensive bilateral pulmonary emboli. The patient had a history of head and neck cancer, and she is on chronic chemotherapy for that. However the CT scan done with IV contrast showed a new lung mass that the radiologist felt was a primary lung cancer because of lack of evidence of surrounding metastasis. She was evaluated by hematology oncology as well as pulmonary teams. Hematology oncology wanted her to get a biopsy of this new lung mass, however interventional radiology felt that because of the extensive PE, undertaken a biopsy under anesthesia was dangerous, and also they felt that this new lung mass could be a sequelae of PE or metastasis from her prior cancer. All in all , they felt the patient should be treated for her PE for short period of time after which the CAT scan repeated and if mass was unchanged and she would benefit from tissue biopsy. The sonography technologist agreed with this plan and recommended that patient get a repeat CAT scan in about 2 weeks. The patient was treated with treatment dose heparin and eventually transitioned to oral Eliquis. She has done well and has been transitioned to room air. She is stable, she is ambulating short distances, and she has a caregiver at home. It is my opinion that she is stable for outpatient follow-up. She is to follow- up with her own oncologist or with Dr. Amanda rader in about a week to set up an outpatient CT scan of the chest to further evaluate her lung mass and determine next course of action. This was communicated to her; however I worry that the patient cognitively may not understand the extent of her disease, so I will arrange for home health to assist in arranging follow-up and to ensure that the patient gets the care that she deserves. . Home Meds Active Scripts Levothyroxine Sodium (Levothroid) 100 Mcg Tablet, 100 MCG PO BEFORE BREAKFAST for 30 Days, TAB 2 Refills Prov:KATHIADAHLIAMORGAN . 05/10/17 Docusate Sodium (Dok) 100 Mg Capsule, 100 MG PO Q12 for 30 Days, CAP 2 Refills Prov:KATHIADAHLIA CarlisleMORGAN . 05/10/17 Aspirin* (Aspirin* EC) 81 Mg Tablet.dr, 81 MG PO DAILY for 30 Days, 2 Refills Prov:ESA BAEKofi Laura 05/10/17 Nitroglycerin* (Nitrostat*) 0.4 Mg Tab.subl, 1 TAB SL Q5M Y for ANGINA, #10 Prov:KATHIADAHLIAMORGAN . 05/10/17 Atorvastatin (Atorvastatin) 10 Mg Tablet, 10 MG PO HS for 30 Days, TAB 2 Refills Prov:ESA BAEKofi . 05/10/17 Apixaban* (Eliquis*) 5 Mg Tablet, 10 MG PO BID, #13 TAB Prov:KATHIAESAKofi . 05/10/17 Apixaban* (Eliquis*) 5 Mg Tablet, 5 MG PO BID for 30 Days, TAB 2 Refills start April 17 2017 Prov:KATHIAESA CarlisleKofi . 05/10/17 Reported Medications Levothyroxine Sodium* (Levothyroxine Sodium*) 75 Mcg Tablet, 75 MCG PO BEFORE BREAKFAST, #30 TAB 05/05/17 [Revlimid 5MG] No Conflict Check, 5 MG PO DAILY 05/05/17 Cholecalciferol (Vitamin D3) 400 Unit Tablet, 400 UNIT PO DAILY, TAB 05/05/17 Vitamin E* (Vitamin E*) 400 Unit Capsule, 400 UNIT PO DAILY, CAP 01/19/16 Discontinued Reported Medications Lenalidomide (REVLIMID) 2.5 Mg Capsule, 5 MG PO, CAP 05/05/17 Multivits-Min/Iron/FA/Lutein (Centrum Silver Women Tablet) 1 Each Tablet, 1 EACH PO DAILY, TAB 01/19/16 Cholecalciferol (Vitamin D3) (Vitamin D-3) 2,000 Unit Tablet, 2000 UNIT PO DAILY , TAB 01/19/16 Amoxicillin-Clavulanate K* (Augmentin*) 875 Mg Tab, 875 MG PO Q12 11/18/13 Levothyroxine Sodium (Levothroid) 25 Mcg Tablet, 25 MCG PO DAILY 11/17/13 Follow-up Plan See hospital course . Primary Care Provider Jack Espinoza Time spent on discharge: > 30 minutes Pending Labs Laboratory Tests Test 05/09/17 20:59 05/10/17 07:43 05/10/17 08:05 05/10/17 12:43 Bedside Glucose 124mg/dL (70-220) 112mg/dL (70-220) 121mg/dL (70-220) White Blood Count 5.810^3/ul (4.8-10.8) Red Blood Count 4.3510^6/ul (4.20-5.40) Hemoglobin 12.6g/dl (12.0-16.0) Hematocrit 38.0% (37.0-47.0) Mean Corpuscular Volume 87.4fl (82.0-101.0) Mean Corpuscular Hemoglobin 29.0pg (29.0-33.0) Mean Corpuscular Hemoglobin Concent 33.2g/dl (32.0-37.0) Red Cell Distribution Width 14.3% (11.5-14.5) Platelet Count 14165^3/UL (140-415) Mean Platelet Volume 10.2fl (7.4-10.4) Neutrophils % 76.0% (39.0-77.0) Lymphocytes % 11.1% (15.0-51.0) Monocytes % 5.9% (0.0-11.0) Eosinophils % 5.4% (0.0-7.0) Basophils % 0.9% (0.0-2.0) Nucleated Red Blood Cells % 0.0/100WBC (0.0-0.0) Neutrophils # 4.410^3/ul (1.6-7.5) Lymphocytes # 0.610^3/ul (0.8-2.9) Monocytes # 0.310^3/ul (0.3-0.9) Eosinophils # 0.310^3/ul (0.0-0.5) Basophils # 0.110^3/ul (0.0-0.1) Nucleated Red Blood Cells # 0.010^3/ul (0.0-0.0) Sodium Level 137mmol/L (135-144) Potassium Level 3.8mmol/L (3.5-5.1) Chloride Level 104mmol/L (97-110) Carbon Dioxide Level 26mmol/L (21-31) Anion Gap 11 (8-16) Blood Urea Nitrogen 9mg/dl (7-20) Creatinine 0.67mg/dl (0.44-1.00) Glucose Level 109mg/dl (70-220) Calcium Level 9.3mg/dl (8.4-10.2) Test 05/10/17 17:23 Bedside Glucose 111mg/dL (70-220) JJ BAE May 10, 2017 18:41
[2017-05-10] MEDS: ATORVASTATIN 10 MG TAB PO SCH (20:27)
[2017-05-10] MEDS: ALBUTEROL/IPRATROPIUM (NEB) 3 ML AMP HHN SCH (20:55)
--- NOTE | 2017-05-10 21:04 | CONS ---
Date/Time of Note Date/Time of Note DATE: 05/10/17 TIME: 21:04 Assessment/Plan Assessment/Plan Chief Complaint/Hosp Course Extensive bilateral acute pulmonary emboli. No saddle embolus. Lovenox 1 mg/kg subQ b.i.d 3.8 x 2.4 cm mass right middle lobe highly suspicious for primary lung cancer. No evidence of metastatic disease in the chest complete staging with CT ABD PULM F-UP- REPEAT CT CHEST IN 2 WE , AFTER CT - WILL DECIDE RE BX Shortness of breath. secondary to pulmonary embolism. 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 OBTAIN AND REVIEW OLD RECORD Lactic acidosis, unclear source. Signs of possible sepsis. Continue broad-spectrum antibiotics Questionable history of thyroid issues. Check thyroid panel, continue levothyroxine. Gastrointestinal prophylaxis. PPI. Deep venous thrombosis prophylaxis. Lovenox INCOMPLETE RECORD Problems: Consultation Date/Type/Reason Admit Date/Time May 06, 2017 at 14:11 Initial Consult Date 05/05/17 Type of Consultation: [facility] Referring Provider: MANJINDER HOWELL 24 HR Interval Summary Free Text/Dictation ALL NOTED NO NEW EVENTS Exam/Review of Systems Vital Signs Vitals Vital Signs Date Time Temp Pulse Resp B/P Pulse Ox O2 Delivery O2 Flow Rate FiO2 05/10/17 20:29 98.5 92 20 127/60 92 05/10/17 16:10 3.0 05/09/17 03:29 Nasal Cannula 05/07/17 04:54 32 Intake and Output 05/09/17 05/09/17 05/10/17 15:00 23:00 07:00 Intake Total 720 ml 1750 ml Balance 720 ml 1750 ml Exam GENERAL: The patient is lying in bed, answering questions appropriately. No acute distress. HEENT: Pupils equal, round, react to light. Extraocular muscles intact. NECK: Slightly enlarged. Surgical scar noted on the right side of the neck, otherwise supple. LUNGS: Clear to auscultation bilaterally. No wheezes. CARDIOVASCULAR: Tachycardic heart rate but regular. No rubs or gallops. ABDOMEN: Soft, nontender, nondistended. Normal bowel sounds. No rebound or guarding. MUSCULOSKELETAL: No lower extremity edema bilaterally. NEUROLOGIC: No focal deficits. Results Result Diagram: 05/10/17 0805 05/10/17 0805 Results 24 hrs Laboratory Tests Test 05/10/17 07:43 05/10/17 08:05 05/10/17 12:43 05/10/17 17:23 Bedside Glucose 112 121 111 White Blood Count 5.8 Red Blood Count 4.35 Hemoglobin 12.6 Hematocrit 38.0 Mean Corpuscular Volume 87.4 Mean Corpuscular Hemoglobin 29.0 Mean Corpuscular Hemoglobin Concent 33.2 Red Cell Distribution Width 14.3 Platelet Count 203 Mean Platelet Volume 10.2 Neutrophils % 76.0 Lymphocytes % 11.1 L Monocytes % 5.9 Eosinophils % 5.4 Basophils % 0.9 Nucleated Red Blood Cells % 0.0 Neutrophils # 4.4 Lymphocytes # 0.6 L Monocytes # 0.3 Eosinophils # 0.3 Basophils # 0.1 Nucleated Red Blood Cells # 0.0 Sodium Level 137 Potassium Level 3.8 Chloride Level 104 Carbon Dioxide Level 26 Anion Gap 11 Blood Urea Nitrogen 9 Creatinine 0.67 Glucose Level 109 Calcium Level 9.3 Test 05/10/17 20:26 Bedside Glucose 124 Medications Medications Current Medications Ondansetron HCl (Zofran Inj) 4 mg Q6H PRN IV NAUSEA AND/OR VOMITING; Start at 17:30 Acetaminophen (Tylenol Tab) 650 mg Q6H PRN PO PAIN LEVEL 1-3 OR FEVER Last administered on 05/09/17 03:12; Admin Dose 650 MG; Start 05/05/17 at 17:30 Acetaminophen/ Hydrocodone Bitart ([place] (5/325)) 1 tab Q6H PRN PO MODERATE PAIN LEVEL 4-6; Start 05/05/17 at 17:30 Morphine Sulfate (morphine) 2 mg Q4H PRN IV SEVERE PAIN LEVEL 7-10; Start 05/05 at 17:30 Magnesium Hydroxide (Milk Of Mag) 30 ml DAILY PRN PO CONSTIPATION; Start at 17:30 Sodium Biphosphate/ Sodium Phosphate (Fleet Enema) 133 ml DAILY PRN [place] CONSTIPATION; Start 05/05/17 at 17:30 Pantoprazole (Protonix Tab) 40 mg DAILY@06 PO Last administered on 05/10/17 06 :07; Admin Dose 40 MG; Start 05/06/17 at 06:00 Lorazepam 0.5 mg 0.5 mg Q6H PRN PO ANXIETY; Start 05/05/17 at 17:30 Piperacillin Sod/ Tazobactam Sod (Zosyn 3.375gm/ 100 ml (Pmx)) 100 ml @ 200 mls /hr Q6 IVPB Last administered on 05/10/17 17:30; Admin Dose 200 MLS/HR; Start 05/05/17 at 18:00 Vancomycin HCl (Vanco Iv Per Pharmacy) VANCOMYCIN PER PHARMACY NOTE XX ; Start 05/05/17 at 17:30 Hydralazine HCl (Apresoline) 10 mg Q6H PRN IV ELEVATED BLOOD PRESSURE; Start at 17:30 Nitroglycerin (Nitroglycerin (Sl Tab) 0.4 Mg) 1 tab Q5M PRN SL ANGINA; Start at 17:30 Cholecalciferol (Vitamin D) 400 units DAILY PO Last administered on 05/10/17 08:17; Admin Dose 400 UNITS; Start 05/06/17 at 09:00 Vitamin E (Vitamin E) 400 units DAILY PO Last administered on 05/10/17 08:17; Admin Dose 400 UNITS; Start 05/06/17 at 09:00 Docusate Sodium (Colace) 100 mg Q12 PO Last administered on 05/10/17 20:27; Admin Dose 100 MG; Start 05/06/17 at 21:00 Aspirin (Halfprin) 81 mg DAILY PO Last administered on 05/10/17 08:15; Admin Dose 81 MG; Start 05/07/17 at 09:00 Atorvastatin Calcium (Lipitor) 10 mg HS PO Last administered on 05/10/17 20:27 ; Admin Dose 10 MG; Start 05/06/17 at 21:00 Miscellaneous Information 1 ea NOTE XX ; Start 05/06/17 at 14:30 Glucose (Glutose) 15 gm Q15M PRN PO DECREASED GLUCOSE; Start 05/06/17 at 14:30 Glucose (Glutose) 22.5 gm Q15M PRN PO DECREASED GLUCOSE; Start 05/06/17 at 14: 30 Dextrose (D50w Syringe) 25 ml Q15M PRN IV DECREASED GLUCOSE; Start 05/06/17 at 14:30 Dextrose (D50w Syringe) 50 ml Q15M PRN IV DECREASED GLUCOSE; Start 05/06/17 at 14:30 Glucagon (Glucagen) 1 mg Q15M PRN IM DECREASED GLUCOSE; Start 05/06/17 at 14:30 Glucose (Glutose) 15 gm Q15M PRN BUCCAL DECREASED GLUCOSE; Start 05/06/17 at 14 :30 Diagnostic Test (Pha) 1 ea 1 ea 02 XX ; Start 05/07/17 at 02:00 Vancomycin HCl/ Sodium Chloride (Vancocin/NS) 250 ml @ 83.333 mls/ hr Q12H IVPB Last administered on 05/10/17 13:58; Admin Dose 83.333 MLS/HR; Start at 13:00 Patient Own Medication 1 ea DAILY PO Last administered on 05/10/17 08:15; Admin Dose 1 EA; Start 05/08/17 at 12:00; Stop 05/22/17 at 09:01 Apixaban (Eliquis) 10 mg BID PO Last administered on 05/10/17 20:27; Admin Dose 10 MG; Start 05/10/17 at 09:00; Stop 05/17/17 at 08:59 Apixaban (Eliquis) 5 mg BID PO ; Start 05/17/17 at 09:00 ROSSANA ALARCON MD May 10, 2017 21:04
[2017-05-11] VITALS (15 sets, daily range): BP systolic 106–136; BP diastolic 7–92; PULSE 84–100; RESP 16–22
[2017-05-11] MEDS: ALBUTEROL/IPRATROPIUM (NEB) 3 ML AMP HHN SCH ×6 (01:01→20:57)
[2017-05-11] MEDS: VANCOMYCIN 1.5 GM in SOD CHLORIDE 0.9% 250 ML IVPB SCH ×2 (01:41→13:11)
[2017-05-11] MEDS: ACCUCHECK AT 2AM (Patients on SS coverage) XX SCH (02:00)
[2017-05-11] MEDS: LEVOTHYROXINE 100 MCG TAB PO SCH (05:37)
[2017-05-11] MEDS: PANTOPRAZOLE (EC) 40 MG TAB PO SCH (05:37)
[2017-05-11] MEDS: PIPER-TAZO 3.375 GM IV (PMX) 100 ML IVPB SCH ×2 (05:37→12:00)
[2017-05-11] MEDS: INSULIN ASPART [NOVOLOG] 3 ML PEN SC SCH ×4 (07:55→20:43)
[2017-05-11] MEDS: DOCUSATE SODIUM 100 MG CAP PO SCH ×2 (09:03→20:40)
[2017-05-11] MEDS: CHOLECALCIFEROL 400 UNITS TAB PO SCH (09:03)
[2017-05-11] MEDS: VITAMIN E 400 UNITS CAP PO SCH (09:03)
[2017-05-11] MEDS: ASPIRIN (EC) 81 MG TAB PO SCH (09:04)
[2017-05-11] MEDS: APIXABAN 5 MG TABLET PO SCH ×2 (09:04→18:52)
[2017-05-11] MEDS: LENALIDOMIDE 5 MG PO SCH (09:11)
[2017-05-11 11:09] LABS: BASOPHILS % 0.6 % (0.0-2.0); EOSINOPHILS # 0.3 10^3/ul (0.0-0.5); HEMATOCRIT 39.7 % (37.0-47.0); HEMOGLOBIN 13.1 g/dl (12.0-16.0); LYMPHOCYTES # 0.9 10^3/ul (0.8-2.9); LYMPHOCYTES % 14.9 % (15.0-51.0); MEAN CORPUSCULAR HEMOGLOBIN 29.3 pg (29.0-33.0); MEAN CORPUSCULAR VOLUME 88.8 fl (82.0-101.0); MEAN PLATELET VOLUME 9.8 fl (7.4-10.4); MONOCYTE # 0.5 10^3/ul (0.3-0.9); MONOCYTES % 8.4 % (0.0-11.0); NEUTROPHIL # 4.3 10^3/ul (1.6-7.5); NEUTROPHILS % 70.6 % (39.0-77.0); PLATELET COUNT 223 10^3/UL (140-415); RED BLOOD COUNT 4.47 10^6/ul (4.20-5.40); RED CELL DISTRIBUTION WIDTH 14.6 % (11.5-14.5); WHITE BLOOD COUNT 6.2 10^3/ul (4.8-10.8)
[2017-05-11 11:27] LABS: CALCIUM 9.8 mg/dl (8.4-10.2); CREATININE 0.78 mg/dl (0.44-1.00)
--- NOTE | 2017-05-11 11:29 | PN ---
Date/Time of Note Date/Time of Note DATE: 05/11/17 TIME: 11:28 Assessment/Plan VTE Prophylaxis VTE Prophylaxis Intervention: other (eliquis) Lines/Catheters [facility] [place] [facility] Urinary Cath still in place: No Assessment/Plan Assessment/Plan 51-year-old female who presented with sudden shortness of breath now managed for the followin. Acute shortness of breath secondary to #2 : resolved / stable on room air 2. Extensive bilateral acute pulmonary emboli : s/p lovenox, now on Eliquis 3. Right middle lobe mass suspicious for primary lung cancer without evidence of metastatic disease: Needs repeat CT in 2 weeks to reassess 4. 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 Hypothyroidism: still with suboptimal control. : dosage gently increased to 100mcg 6. Lactic acidosis likely secondary to respiratory insufficiency: resolved 7. Prediabetes with hemoglobin A1c of 6.2 8. Dyslipidemia 9. Obesity r/o OHS versus SRAVANTHI: needs outpt sleep study 10. Chronic cognitive deficits, ?Early dementia vs Chronic MR 11. Mild Pulmonary HTN on Echo ?2/2 #2 PLAN: Continue current cure, mild diuresis / arrange for home o2 and CPAP at bedtime, needs repeat CT by may 19. Subjective 24 Hr Interval Summary Free Text/Dictation d/c was held because patient desats on room air Exam/Review of Systems Vital Signs Vitals Vital Signs Date Time Temp Pulse Resp B/P Pulse Ox O2 Delivery O2 Flow Rate FiO2 05/11/17 09:53 95 3.0 05/11/17 09:52 94 23 Nasal Cannula 05/11/17 07:56 97.3 111/59 05/11/17 04:46 30 Intake and Output 05/10/17 05/10/17 05/11/17 15:00 23:00 07:00 Intake Total 150 ml 820 ml 450 ml Balance 150 ml 820 ml 450 ml Results Result Diagram: 05/11/17 1055 05/10/17 0805 Results 24 hrs Laboratory Tests Test 05/10/17 12:43 05/10/17 17:23 05/10/17 20:26 05/11/17 08:27 Bedside Glucose 121 111 124 109 Test 05/11/17 10:55 White Blood Count 6.2 Red Blood Count 4.47 Hemoglobin 13.1 Hematocrit 39.7 Mean Corpuscular Volume 88.8 Mean Corpuscular Hemoglobin 29.3 Mean Corpuscular Hemoglobin Concent 33.0 Red Cell Distribution Width 14.6 H Platelet Count 223 Mean Platelet Volume 9.8 Neutrophils % 70.6 Lymphocytes % 14.9 L Monocytes % 8.4 Eosinophils % 5.0 Basophils % 0.6 Nucleated Red Blood Cells % 0.0 Neutrophils # 4.3 Lymphocytes # 0.9 Monocytes # 0.5 Eosinophils # 0.3 Basophils # 0.0 Nucleated Red Blood Cells # 0.0 Medications Medications Current Medications Ondansetron HCl (Zofran Inj) 4 mg Q6H PRN IV NAUSEA AND/OR VOMITING; Start at 17:30 Acetaminophen (Tylenol Tab) 650 mg Q6H PRN PO PAIN LEVEL 1-3 OR FEVER Last administered on 05/09/17 03:12; Admin Dose 650 MG; Start 05/05/17 at 17:30 Acetaminophen/ Hydrocodone Bitart ([place] (5/325)) 1 tab Q6H PRN PO MODERATE PAIN LEVEL 4-6; Start 05/05/17 at 17:30 Morphine Sulfate (morphine) 2 mg Q4H PRN IV SEVERE PAIN LEVEL 7-10; Start 05/05 at 17:30 Magnesium Hydroxide (Milk Of Mag) 30 ml DAILY PRN PO CONSTIPATION; Start at 17:30 Sodium Biphosphate/ Sodium Phosphate (Fleet Enema) 133 ml DAILY PRN [place] CONSTIPATION; Start 05/05/17 at 17:30 Pantoprazole (Protonix Tab) 40 mg DAILY@06 PO Last administered on 05/11/17 05: 37; Admin Dose 40 MG; Start 05/06/17 at 06:00 Lorazepam 0.5 mg 0.5 mg Q6H PRN PO ANXIETY; Start 05/05/17 at 17:30 Piperacillin Sod/ Tazobactam Sod (Zosyn 3.375gm/ 100 ml (Pmx)) 100 ml @ 200 mls /hr Q6 IVPB Last administered on 05/11/17 05:37; Admin Dose 200 MLS/HR; Start 05/05/17 at 18:00 Vancomycin HCl (Vanco Iv Per Pharmacy) VANCOMYCIN PER PHARMACY NOTE XX ; Start 05/05/17 at 17:30 Hydralazine HCl (Apresoline) 10 mg Q6H PRN IV ELEVATED BLOOD PRESSURE; Start at 17:30 Nitroglycerin (Nitroglycerin (Sl Tab) 0.4 Mg) 1 tab Q5M PRN SL ANGINA; Start at 17:30 Cholecalciferol (Vitamin D) 400 units DAILY PO Last administered on 05/11/17 09 :03; Admin Dose 400 UNITS; Start 05/06/17 at 09:00 Vitamin E (Vitamin E) 400 units DAILY PO Last administered on 05/11/17 09:03; Admin Dose 400 UNITS; Start 05/06/17 at 09:00 Docusate Sodium (Colace) 100 mg Q12 PO Last administered on 05/11/17 09:03; Admin Dose 100 MG; Start 05/06/17 at 21:00 Aspirin (Halfprin) 81 mg DAILY PO Last administered on 05/11/17 09:04; Admin Dose 81 MG; Start 05/07/17 at 09:00 Atorvastatin Calcium (Lipitor) 10 mg HS PO Last administered on 05/10/17 20:27 ; Admin Dose 10 MG; Start 05/06/17 at 21:00 Miscellaneous Information 1 ea NOTE XX ; Start 05/06/17 at 14:30 Glucose (Glutose) 15 gm Q15M PRN PO DECREASED GLUCOSE; Start 05/06/17 at 14:30 Glucose (Glutose) 22.5 gm Q15M PRN PO DECREASED GLUCOSE; Start 05/06/17 at 14: 30 Dextrose (D50w Syringe) 25 ml Q15M PRN IV DECREASED GLUCOSE; Start 05/06/17 at 14:30 Dextrose (D50w Syringe) 50 ml Q15M PRN IV DECREASED GLUCOSE; Start 05/06/17 at 14:30 Glucagon (Glucagen) 1 mg Q15M PRN IM DECREASED GLUCOSE; Start 05/06/17 at 14:30 Glucose (Glutose) 15 gm Q15M PRN BUCCAL DECREASED GLUCOSE; Start 05/06/17 at 14 :30 Diagnostic Test (Pha) 1 ea 1 ea 02 XX ; Start 05/07/17 at 02:00 Vancomycin HCl/ Sodium Chloride (Vancocin/NS) 250 ml @ 83.333 mls/ hr Q12H IVPB Last administered on 05/11/17 01:41; Admin Dose 83.333 MLS/HR; Start 05/07 at 13:00 Patient Own Medication 1 ea DAILY PO Last administered on 05/11/17 09:11; Admin Dose 1 EA; Start 05/08/17 at 12:00; Stop 05/22/17 at 09:01 Apixaban (Eliquis) 10 mg BID PO Last administered on 05/11/17 09:04; Admin Dose 10 MG; Start 05/10/17 at 09:00; Stop 05/17/17 at 08:59 Apixaban (Eliquis) 5 mg BID PO ; Start 05/17/17 at 09:00 JJ BAE May 11, 2017 11:29
[2017-05-11] MEDS ORDERED: POTA8CAP PO (11:32)
[2017-05-11] MEDS ORDERED: FURO20TA3 PO (11:32)
[2017-05-11 12:55] LABS: AADO2 Arterial 49.3 mmHg (7.0-24.0); Allen Test ACCEPTAB; Arterial Base Excess 1.3 mmol/L (-3.0-3); Arterial COHb 0.2 % (0.0-3.0); Arterial Fraction of Oxyhgb 88.5 % (93.0-99.0); Arterial HCO3 25.3 mmol/L (22.0-26.0); Arterial MetHb 0.3 % (0.0-1.5); Arterial Total Hemglobin 14.3 g/dl (12.0-18.0); MODE ROOM AIR
[2017-05-11] MEDS: FUROSEMIDE 20 MG INJ IV SCH (13:11)
--- NOTE | 2017-05-11 17:39 | CONS ---
Date/Time of Note Date/Time of Note DATE: 05/11/17 TIME: 17:38 Assessment/Plan Assessment/Plan Chief Complaint/Hosp Course Extensive bilateral acute pulmonary emboli. No saddle embolus. Lovenox 1 mg/kg subQ b.i.d 3.8 x 2.4 cm mass right middle lobe highly suspicious for primary lung cancer. No evidence of metastatic disease in the chest complete staging with CT ABD PULM F-UP- REPEAT CT CHEST IN 2 WE , AFTER CT - WILL DECIDE RE BX Shortness of breath. secondary to pulmonary embolism. 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 OBTAIN AND REVIEW OLD RECORD Lactic acidosis, unclear source. Signs of possible sepsis. Continue broad-spectrum antibiotics Questionable history of thyroid issues. Check thyroid panel, continue levothyroxine. Gastrointestinal prophylaxis. PPI. Deep venous thrombosis prophylaxis. Lovenox INCOMPLETE RECORD Problems: Consultation Date/Type/Reason Admit Date/Time May 06, 2017 at 14:11 Initial Consult Date 05/05/17 Type of Consultation: [facility] Referring Provider: MANJINDER HOWELL 24 HR Interval Summary Free Text/Dictation ALL NOTED NO NEW EVENTS Exam/Review of Systems Vital Signs Vitals Vital Signs Date Time Temp Pulse Resp B/P Pulse Ox O2 Delivery O2 Flow Rate FiO2 05/11/17 17:22 95 3.0 05/11/17 17:21 97 23 Nasal Cannula 05/11/17 15:33 98.3 109/57 05/11/17 04:46 30 Intake and Output 05/10/17 05/10/17 05/11/17 15:00 23:00 07:00 Intake Total 150 ml 820 ml 450 ml Balance 150 ml 820 ml 450 ml Exam GENERAL: The patient is lying in bed, answering questions appropriately. No acute distress. HEENT: Pupils equal, round, react to light. Extraocular muscles intact. NECK: Slightly enlarged. Surgical scar noted on the right side of the neck, otherwise supple. LUNGS: Clear to auscultation bilaterally. No wheezes. CARDIOVASCULAR: Tachycardic heart rate but regular. No rubs or gallops. ABDOMEN: Soft, nontender, nondistended. Normal bowel sounds. No rebound or guarding. MUSCULOSKELETAL: No lower extremity edema bilaterally. NEUROLOGIC: No focal deficits. Results Result Diagram: 05/11/17 1055 05/11/17 1055 Results 24 hrs Laboratory Tests Test 05/10/17 20:26 05/11/17 08:27 05/11/17 10:55 05/11/17 11:58 Bedside Glucose 124 109 117 White Blood Count 6.2 Red Blood Count 4.47 Hemoglobin 13.1 Hematocrit 39.7 Mean Corpuscular Volume 88.8 Mean Corpuscular Hemoglobin 29.3 Mean Corpuscular Hemoglobin Concent 33.0 Red Cell Distribution Width 14.6 H Platelet Count 223 Mean Platelet Volume 9.8 Neutrophils % 70.6 Lymphocytes % 14.9 L Monocytes % 8.4 Eosinophils % 5.0 Basophils % 0.6 Nucleated Red Blood Cells % 0.0 Neutrophils # 4.3 Lymphocytes # 0.9 Monocytes # 0.5 Eosinophils # 0.3 Basophils # 0.0 Nucleated Red Blood Cells # 0.0 Sodium Level 144 Potassium Level 4.0 Chloride Level 103 Carbon Dioxide Level 26 Anion Gap 19 #H Blood Urea Nitrogen 12 Creatinine 0.78 Glucose Level 125 Calcium Level 9.8 Test 05/11/17 12:30 Blood Gas Specimen Source Blood arterial Arterial Blood Date Drawn 05/11/2017 12:50:54 PM Arterial Blood pH (Temp corrected) 7.443 Arterial Blood pCO2 (Temp correct) 37.8 Arterial Blood pO2 (Temp corrected) 55.2 L Arterial Blood HCO3 25.3 Arterial Blood Base Excess 1.3 Arterial Blood Oxygen Saturation 88.9 L Simone Test ACCEPTAB Arterial Blood Gas Puncture Site Left Radial Arterial Blood Carboxyhemoglobin 0.2 Arterial Blood Methemoglobin 0.3 Blood Gas A-a O2 Differential 49.3 H Oxyhemoglobin Percent 88.5 L Total Hemoglobin 14.3 Blood Gas Temperature 37.0 Blood Gas Modality ROOM AIR FiO2 21.0 Blood Gas Notified Whom RT Blood Gas Notified Time 05/11/2017 12:55:20 PM Medications Medications Current Medications Ondansetron HCl (Zofran Inj) 4 mg Q6H PRN IV NAUSEA AND/OR VOMITING; Start at 17:30 Acetaminophen (Tylenol Tab) 650 mg Q6H PRN PO PAIN LEVEL 1-3 OR FEVER Last administered on 05/09/17t 03:12; Admin Dose 650 MG; Start 05/05/17 at 17:30 Acetaminophen/ Hydrocodone Bitart ([place] (5/325)) 1 tab Q6H PRN PO MODERATE PAIN LEVEL 4-6; Start 05/05/17 at 17:30 Morphine Sulfate (morphine) 2 mg Q4H PRN IV SEVERE PAIN LEVEL 7-10; Start 05/05 at 17:30 Magnesium Hydroxide (Milk Of Mag) 30 ml DAILY PRN PO CONSTIPATION; Start at 17:30 Sodium Biphosphate/ Sodium Phosphate (Fleet Enema) 133 ml DAILY PRN [place] CONSTIPATION; Start 05/05/17 at 17:30 Pantoprazole (Protonix Tab) 40 mg DAILY@06 PO Last administered on 05/11/17 05: 37; Admin Dose 40 MG; Start 05/06/17 at 06:00 Lorazepam (Ativan) 0.5 mg Q6H PRN PO ANXIETY; Start 05/05/17 at 17:30 Hydralazine HCl (Apresoline) 10 mg Q6H PRN IV ELEVATED BLOOD PRESSURE; Start at 17:30 Nitroglycerin (Nitroglycerin (Sl Tab) 0.4 Mg) 1 tab Q5M PRN SL ANGINA; Start at 17:30 Cholecalciferol (Vitamin D) 400 units DAILY PO Last administered on 05/11/17 09 :03; Admin Dose 400 UNITS; Start 05/06/17 at 09:00 Vitamin E (Vitamin E) 400 units DAILY PO Last administered on 05/11/17 09:03; Admin Dose 400 UNITS; Start 05/06/17 at 09:00 Docusate Sodium (Colace) 100 mg Q12 PO Last administered on 05/11/17 09:03; Admin Dose 100 MG; Start 05/06/17 at 21:00 Aspirin (Halfprin) 81 mg DAILY PO Last administered on 05/11/17 09:04; Admin Dose 81 MG; Start 05/07/17 at 09:00 Atorvastatin Calcium (Lipitor) 10 mg HS PO Last administered on 05/10/17 20:27 ; Admin Dose 10 MG; Start 05/06/17 at 21:00 Miscellaneous Information 1 ea NOTE XX ; Start 05/06/17 at 14:30 Glucose (Glutose) 15 gm Q15M PRN PO DECREASED GLUCOSE; Start 05/06/17 at 14:30 Glucose (Glutose) 22.5 gm Q15M PRN PO DECREASED GLUCOSE; Start 05/06/17 at 14: 30 Dextrose (D50w Syringe) 25 ml Q15M PRN IV DECREASED GLUCOSE; Start 05/06/17 at 14:30 Dextrose (D50w Syringe) 50 ml Q15M PRN IV DECREASED GLUCOSE; Start 05/06/17 at 14:30 Glucagon (Glucagen) 1 mg Q15M PRN IM DECREASED GLUCOSE; Start 05/06/17 at 14:30 Glucose (Glutose) 15 gm Q15M PRN BUCCAL DECREASED GLUCOSE; Start 05/06/17 at 14 :30 Diagnostic Test (Pha) (Accu-Chek) 1 ea 02 XX ; Start 05/07/17 at 02:00 Patient Own Medication 1 ea DAILY PO Last administered on 05/11/17 09:11; Admin Dose 1 EA; Start 05/08/17 at 12:00; Stop 05/22/17 at 09:01 Apixaban (Eliquis) 5 mg BID PO ; Start 05/17/17 at 09:00 Furosemide (Lasix) 20 mg DAILY IV Last administered on 05/11/17 13:11; Admin Dose 20 MG; Start 05/11/17 at 12:00; Stop 05/14/17 at 11:59 Levofloxacin (Levaquin) 750 mg DAILY@06 NGT ; Start 05/12/17 at 06:00; Stop at 05:59 Apixaban (Eliquis) 10 mg BID PO ; Start 05/11/17 at 17:23; Stop 05/17/17 at 08:59 ROSSANA ALARCON MD May 11, 2017 17:39
--- NOTE | 2017-05-11 18:23 | CONS ---
Date/Time of Note Date/Time of Note DATE: 05/11/17 TIME: 18:21 Consult Date/Type/Reason Admit Date/Time May 06, 2017 at 14:11 Initial Consult Date 05/08/17 Type of Consultation: pulm Ordering Provider: MANJINDER HOWELL Subjective No events. Imaging reviewed in detail Objective Vital Signs Date Time Temp Pulse Resp B/P Pulse Ox O2 Delivery O2 Flow Rate FiO2 05/11/17 17:22 95 3.0 05/11/17 17:21 97 23 Nasal Cannula 05/11/17 15:33 98.3 109/57 05/11/17 04:46 30 Intake and Output 05/10/17 05/10/17 05/11/17 15:00 23:00 07:00 Intake Total 150 ml 820 ml 450 ml Balance 150 ml 820 ml 450 ml Exam HEENT: Neck supple; no JVD; no LAD CVS: RRR, S1 and S2 CHEST: Clear ABD: Soft, NT, + BS EXT: No c/c/e Results/Medications Result Diagram: 05/11/17 1055 05/11/17 1055 Results 24 hrs Laboratory Tests Test 05/10/17 20:26 05/11/17 08:27 05/11/17 10:55 05/11/17 11:58 Bedside Glucose 124 109 117 White Blood Count 6.2 Red Blood Count 4.47 Hemoglobin 13.1 Hematocrit 39.7 Mean Corpuscular Volume 88.8 Mean Corpuscular Hemoglobin 29.3 Mean Corpuscular Hemoglobin Concent 33.0 Red Cell Distribution Width 14.6 H Platelet Count 223 Mean Platelet Volume 9.8 Neutrophils % 70.6 Lymphocytes % 14.9 L Monocytes % 8.4 Eosinophils % 5.0 Basophils % 0.6 Nucleated Red Blood Cells % 0.0 Neutrophils # 4.3 Lymphocytes # 0.9 Monocytes # 0.5 Eosinophils # 0.3 Basophils # 0.0 Nucleated Red Blood Cells # 0.0 Sodium Level 144 Potassium Level 4.0 Chloride Level 103 Carbon Dioxide Level 26 Anion Gap 19 #H Blood Urea Nitrogen 12 Creatinine 0.78 Glucose Level 125 Calcium Level 9.8 Test 05/11/17 12:30 05/11/17 17:41 Blood Gas Specimen Source Blood arterial Arterial Blood Date Drawn 05/11/2017 12:50:54 PM Arterial Blood pH (Temp corrected) 7.443 Arterial Blood pCO2 (Temp correct) 37.8 Arterial Blood pO2 (Temp corrected) 55.2 L Arterial Blood HCO3 25.3 Arterial Blood Base Excess 1.3 Arterial Blood Oxygen Saturation 88.9 L Simone Test ACCEPTAB Arterial Blood Gas Puncture Site Left Radial Arterial Blood Carboxyhemoglobin 0.2 Arterial Blood Methemoglobin 0.3 Blood Gas A-a O2 Differential 49.3 H Oxyhemoglobin Percent 88.5 L Total Hemoglobin 14.3 Blood Gas Temperature 37.0 Blood Gas Modality ROOM AIR FiO2 21.0 Blood Gas Notified Whom RT Blood Gas Notified Time 05/11/2017 12:55:20 PM Bedside Glucose 108 Medications Current Medications Ondansetron HCl (Zofran Inj) 4 mg Q6H PRN IV NAUSEA AND/OR VOMITING; Start at 17:30 Acetaminophen (Tylenol Tab) 650 mg Q6H PRN PO PAIN LEVEL 1-3 OR FEVER Last administered on 05/09/17 03:12; Admin Dose 650 MG; Start 05/05/17 at 17:30 Acetaminophen/ Hydrocodone Bitart ([place] (5/325)) 1 tab Q6H PRN PO MODERATE PAIN LEVEL 4-6; Start 05/05/17 at 17:30 Morphine Sulfate (morphine) 2 mg Q4H PRN IV SEVERE PAIN LEVEL 7-10; Start 05/05 at 17:30 Magnesium Hydroxide (Milk Of Mag) 30 ml DAILY PRN PO CONSTIPATION; Start at 17:30 Sodium Biphosphate/ Sodium Phosphate (Fleet Enema) 133 ml DAILY PRN [place] CONSTIPATION; Start 05/05/17 at 17:30 Pantoprazole (Protonix Tab) 40 mg DAILY@06 PO Last administered on 05/11/17 05: 37; Admin Dose 40 MG; Start 05/06/17 at 06:00 Lorazepam (Ativan) 0.5 mg Q6H PRN PO ANXIETY; Start 05/05/17 at 17:30 Hydralazine HCl (Apresoline) 10 mg Q6H PRN IV ELEVATED BLOOD PRESSURE; Start at 17:30 Nitroglycerin (Nitroglycerin (Sl Tab) 0.4 Mg) 1 tab Q5M PRN SL ANGINA; Start at 17:30 Cholecalciferol (Vitamin D) 400 units DAILY PO Last administered on 05/11/17 09 :03; Admin Dose 400 UNITS; Start 05/06/17 at 09:00 Vitamin E (Vitamin E) 400 units DAILY PO Last administered on 05/11/17 09:03; Admin Dose 400 UNITS; Start 05/06/17 at 09:00 Docusate Sodium (Colace) 100 mg Q12 PO Last administered on 05/11/17 09:03; Admin Dose 100 MG; Start 05/06/17 at 21:00 Aspirin (Halfprin) 81 mg DAILY PO Last administered on 05/11/17 09:04; Admin Dose 81 MG; Start 05/07/17 at 09:00 Atorvastatin Calcium (Lipitor) 10 mg HS PO Last administered on 05/10/17 20:27 ; Admin Dose 10 MG; Start 05/06/17 at 21:00 Miscellaneous Information 1 ea NOTE XX ; Start 05/06/17 at 14:30 Glucose (Glutose) 15 gm Q15M PRN PO DECREASED GLUCOSE; Start 05/06/17 at 14:30 Glucose (Glutose) 22.5 gm Q15M PRN PO DECREASED GLUCOSE; Start 05/06/17 at 14: 30 Dextrose (D50w Syringe) 25 ml Q15M PRN IV DECREASED GLUCOSE; Start 05/06/17 at 14:30 Dextrose (D50w Syringe) 50 ml Q15M PRN IV DECREASED GLUCOSE; Start 05/06/17 at 14:30 Glucagon (Glucagen) 1 mg Q15M PRN IM DECREASED GLUCOSE; Start 05/06/17 at 14:30 Glucose (Glutose) 15 gm Q15M PRN BUCCAL DECREASED GLUCOSE; Start 05/06/17 at 14 :30 Diagnostic Test (Pha) (Accu-Chek) 1 ea 02 XX ; Start 05/07/17 at 02:00 Patient Own Medication 1 ea DAILY PO Last administered on 05/11/17 09:11; Admin Dose 1 EA; Start 05/08/17 at 12:00; Stop 05/22/17 at 09:01 Apixaban (Eliquis) 5 mg BID PO ; Start 05/17/17 at 09:00 Furosemide (Lasix) 20 mg DAILY IV Last administered on 05/11/17 13:11; Admin Dose 20 MG; Start 05/11/17 at 12:00; Stop 05/14/17 at 11:59 Levofloxacin (Levaquin) 750 mg DAILY@06 NGT ; Start 05/12/17 at 06:00; Stop at 05:59 Apixaban (Eliquis) 10 mg BID PO ; Start 05/11/17 at 17:23; Stop 05/17/17 at 08:59 Assessment/Plan Additional Assessment/Plan IMP: 1. Acute PE--unprovoked 2. RML mass RECS: 1. RML lateral segment mass-like density amendable to CT-guided bx as well bronch, however, favor former. 2. If biopsy is done as an outpatient, she will need to be admitted to have anticoagulation reversed MARYCRUZ TELLEZ MD May 11, 2017 18:23
[2017-05-11] MEDS: ATORVASTATIN 10 MG TAB PO SCH (20:39)
[2017-05-12] VITALS (17 sets, daily range): BP systolic 107–140; BP diastolic 64–77; PULSE 80–95; RESP 17–18
[2017-05-12] MEDS: ALBUTEROL/IPRATROPIUM (NEB) 3 ML AMP HHN SCH ×5 (00:56→17:06)
[2017-05-12] MEDS: ACCUCHECK AT 2AM (Patients on SS coverage) XX SCH (02:00)
[2017-05-12] MEDS: LEVOFLOXACIN 750 MG TABLET NGT SCH (05:45)
[2017-05-12] MEDS: PANTOPRAZOLE (EC) 40 MG TAB PO SCH (05:45)
[2017-05-12] MEDS: LEVOTHYROXINE 100 MCG TAB PO SCH (06:30)
[2017-05-12] MEDS: INSULIN ASPART [NOVOLOG] 3 ML PEN SC SCH ×4 (07:55→20:24)
[2017-05-12] MEDS: VITAMIN E 400 UNITS CAP PO SCH (08:53)
[2017-05-12] MEDS: DOCUSATE SODIUM 100 MG CAP PO SCH ×2 (08:53→20:24)
[2017-05-12] MEDS: ASPIRIN (EC) 81 MG TAB PO SCH (08:53)
[2017-05-12] MEDS: CHOLECALCIFEROL 400 UNITS TAB PO SCH (08:54)
[2017-05-12] MEDS: APIXABAN 5 MG TABLET PO SCH ×2 (08:54→20:24)
[2017-05-12] MEDS: FUROSEMIDE 20 MG INJ IV SCH (08:55)
[2017-05-12] MEDS: LENALIDOMIDE 5 MG PO SCH (08:56)
[2017-05-12 09:07] LABS: BASOPHIL # 0.1 10^3/ul (0.0-0.1); BASOPHILS % 0.9 % (0.0-2.0); EOSINOPHILS # 0.2 10^3/ul (0.0-0.5); EOSINOPHILS % 4.1 % (0.0-7.0); HEMATOCRIT 41.2 % (37.0-47.0); HEMOGLOBIN 13.2 g/dl (12.0-16.0); LYMPHOCYTES # 0.9 10^3/ul (0.8-2.9); LYMPHOCYTES % 16.1 % (15.0-51.0); MEAN CORPUSCULAR HEMOGLOBIN 28.6 pg (29.0-33.0); MEAN CORPUSCULAR VOLUME 89.4 fl (82.0-101.0); MEAN PLATELET VOLUME 9.9 fl (7.4-10.4); MONOCYTE # 0.5 10^3/ul (0.3-0.9); MONOCYTES % 9.9 % (0.0-11.0); NEUTROPHIL # 3.6 10^3/ul (1.6-7.5); NEUTROPHILS % 68.4 % (39.0-77.0); PLATELET COUNT 234 10^3/UL (140-415); RED BLOOD COUNT 4.61 10^6/ul (4.20-5.40); RED CELL DISTRIBUTION WIDTH 14.9 % (11.5-14.5); WHITE BLOOD COUNT 5.3 10^3/ul (4.8-10.8)
[2017-05-12 09:12] LABS: ADD SCAN DIFF NO
[2017-05-12 09:21] LABS: CALCIUM 9.8 mg/dl (8.4-10.2); CREATININE 0.67 mg/dl (0.44-1.00); POTASSIUM 4.3 mmol/L (3.5-5.1)
--- NOTE | 2017-05-12 13:29 | CONS ---
Date/Time of Note Date/Time of Note DATE: 05/12/17 TIME: 13:27 Consult Date/Type/Reason Admit Date/Time May 06, 2017 at 14:11 Initial Consult Date 05/08/17 Type of Consultation: pulm Ordering Provider: MANJINDER HOWELL Subjective No events noted. Objective Vital Signs Date Time Temp Pulse Resp B/P Pulse Ox O2 Delivery O2 Flow Rate FiO2 05/12/17 12:34 92 05/12/17 11:09 2.0 05/12/17 10:58 98.5 18 112/74 95 05/12/17 08:15 Nasal Cannula 05/12/17 07:18 30 Intake and Output 05/11/17 05/11/17 05/12/17 15:00 23:00 07:00 Intake Total 800 ml Balance 800 ml Exam HEENT: Neck supple; no JVD; no LAD CVS: RRR, S1 and S2 CHEST: Clear ABD: Soft, NT, + BS EXT: No c/c/e Results/Medications Result Diagram: 05/12/17 0840 05/12/17 0840 Results 24 hrs Laboratory Tests Test 05/11/17 17:41 05/11/17 20:42 05/12/17 07:50 05/12/17 08:40 Bedside Glucose 108 127 121 White Blood Count 5.3 Red Blood Count 4.61 Hemoglobin 13.2 Hematocrit 41.2 Mean Corpuscular Volume 89.4 Mean Corpuscular Hemoglobin 28.6 L Mean Corpuscular Hemoglobin Concent 32.0 Red Cell Distribution Width 14.9 H Platelet Count 234 Mean Platelet Volume 9.9 Neutrophils % 68.4 Lymphocytes % 16.1 Monocytes % 9.9 Eosinophils % 4.1 Basophils % 0.9 Nucleated Red Blood Cells % 0.0 Neutrophils # 3.6 Lymphocytes # 0.9 Monocytes # 0.5 Eosinophils # 0.2 Basophils # 0.1 Nucleated Red Blood Cells # 0.0 Sodium Level 139 Potassium Level 4.3 Chloride Level 101 Carbon Dioxide Level 29 Anion Gap 13 Blood Urea Nitrogen 12 Creatinine 0.67 Glucose Level 116 Calcium Level 9.8 Test 05/12/17 12:01 Bedside Glucose 112 Medications Current Medications Ondansetron HCl (Zofran Inj) 4 mg Q6H PRN IV NAUSEA AND/OR VOMITING; Start at 17:30 Acetaminophen (Tylenol Tab) 650 mg Q6H PRN PO PAIN LEVEL 1-3 OR FEVER Last administered on 05/09/17 03:12; Admin Dose 650 MG; Start 05/05/17 at 17:30 Acetaminophen/ Hydrocodone Bitart ([place] (5/325)) 1 tab Q6H PRN PO MODERATE PAIN LEVEL 4-6; Start 05/05/17 at 17:30 Morphine Sulfate (morphine) 2 mg Q4H PRN IV SEVERE PAIN LEVEL 7-10; Start 05/05 at 17:30 Magnesium Hydroxide (Milk Of Mag) 30 ml DAILY PRN PO CONSTIPATION; Start at 17:30 Sodium Biphosphate/ Sodium Phosphate (Fleet Enema) 133 ml DAILY PRN [place] CONSTIPATION; Start 05/05/17 at 17:30 Pantoprazole (Protonix Tab) 40 mg DAILY@06 PO Last administered on 05/12/17 05: 45; Admin Dose 40 MG; Start 05/06/17 at 06:00 Lorazepam (Ativan) 0.5 mg Q6H PRN PO ANXIETY; Start 05/05/17 at 17:30 Hydralazine HCl (Apresoline) 10 mg Q6H PRN IV ELEVATED BLOOD PRESSURE; Start at 17:30 Nitroglycerin (Nitroglycerin (Sl Tab) 0.4 Mg) 1 tab Q5M PRN SL ANGINA; Start at 17:30 Cholecalciferol (Vitamin D) 400 units DAILY PO Last administered on 05/12/17 08 :54; Admin Dose 400 UNITS; Start 05/06/17 at 09:00 Vitamin E (Vitamin E) 400 units DAILY PO Last administered on 05/12/17 08:53; Admin Dose 400 UNITS; Start 05/06/17 at 09:00 Docusate Sodium (Colace) 100 mg Q12 PO Last administered on 05/12/17 08:53; Admin Dose 100 MG; Start 05/06/17 at 21:00 Aspirin (Halfprin) 81 mg DAILY PO Last administered on 05/12/17 08:53; Admin Dose 81 MG; Start 05/07/17 at 09:00 Atorvastatin Calcium (Lipitor) 10 mg HS PO Last administered on 05/11/17 20:39 ; Admin Dose 10 MG; Start 05/06/17 at 21:00 Miscellaneous Information 1 ea NOTE XX ; Start 05/06/17 at 14:30 Glucose (Glutose) 15 gm Q15M PRN PO DECREASED GLUCOSE; Start 05/06/17 at 14:30 Glucose (Glutose) 22.5 gm Q15M PRN PO DECREASED GLUCOSE; Start 05/06/17 at 14: 30 Dextrose (D50w Syringe) 25 ml Q15M PRN IV DECREASED GLUCOSE; Start 05/06/17 at 14:30 Dextrose (D50w Syringe) 50 ml Q15M PRN IV DECREASED GLUCOSE; Start 05/06/17 at 14:30 Glucagon (Glucagen) 1 mg Q15M PRN IM DECREASED GLUCOSE; Start 05/06/17 at 14:30 Glucose (Glutose) 15 gm Q15M PRN BUCCAL DECREASED GLUCOSE; Start 05/06/17 at 14 :30 Diagnostic Test (Pha) (Accu-Chek) 1 ea 02 XX ; Start 05/07/17 at 02:00 Patient Own Medication 1 ea DAILY PO Last administered on 05/12/17 08:56; Admin Dose 1 EA; Start 05/08/17 at 12:00; Stop 05/22/17 at 09:01 Apixaban (Eliquis) 5 mg BID PO ; Start 05/17/17 at 09:00 Furosemide (Lasix) 20 mg DAILY IV Last administered on 05/12/17 08:55; Admin Dose 20 MG; Start 05/11/17 at 12:00; Stop 05/14/17 at 11:59 Levofloxacin (Levaquin) 750 mg DAILY@06 NGT Last administered on 05/12/17 05:45 ; Admin Dose 750 MG; Start 05/12/17 at 06:00; Stop 05/17/17 at 05:59 Apixaban (Eliquis) 10 mg BID PO Last administered on 05/12/17 08:54; Admin Dose 10 MG; Start 05/11/17 at 17:23; Stop 05/17/17 at 08:59 Assessment/Plan Additional Assessment/Plan IMP: 1. Acute PE--unprovoked 2. RML mass RECS: 1. RML lateral segment mass-like density amendable to CT-guided bx as well bronch, however, favor former. 2. If biopsy is done as an outpatient, she will need to be admitted to have anticoagulation reversed. 3. Would discuss possibility of CT-guided bx as inpatient with IR and Dr. Parekh tomorrow. MARYCRUZ TELLEZ MD May 12, 2017 13:29
--- NOTE | 2017-05-12 18:26 | PN ---
Date/Time of Note Date/Time of Note DATE: 05/12/17 TIME: 18:19 Assessment/Plan VTE Prophylaxis VTE Prophylaxis Intervention: LMWH Lines/Catheters IV Catheter Type (from [facility] Urinary Cath still in place: No Assessment/Plan Assessment/Plan 51-year-old female who presented with sudden shortness of breath now managed for the followin. Acute shortness of breath secondary to #2 : resolved / stable on room air 2. Extensive bilateral acute pulmonary emboli : s/p lovenox, now on Eliquis 3. Right middle lobe mass suspicious for primary lung cancer without evidence of metastatic disease: Needs repeat CT by May 19 to reassess 4. 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 Hypothyroidism: still with suboptimal control. : dosage gently increased to 100mcg, repeat TSH in a few weeks 6. Lactic acidosis likely secondary to respiratory insufficiency: resolved 7. Prediabetes with hemoglobin A1c of 6.2 8. Dyslipidemia 9. Obesity r/o OHS versus SRAVANTHI: needs outpt sleep study 10. Chronic cognitive deficits, ?Early dementia vs Chronic MR 11. Mild Pulmonary HTN on Echo ?12/13 #2 PLAN: * Patient has a new lung mass that needs to be biopsied to determine if it is metastasis or a new primary lung cancer. Interventional radiology and Dr. Gomez had recommended treating the pulmonary embolus for at least 2 weeks then repeating the CT scan and then doing a biopsy if it is still indicated. * The plan was to discharge patient back to her [facility] living, and then have her follow-up as outpatient with oncology for repeat CT scan and further interventions; however the senior living will not take patient back with oxygen therapy and so at this time are working on alternative placement even as we try to wean her off oxygen. * If we cannot find placement before the end of next week, patient might as well stay and repeat her CAT scan and continue interventions as indicated. * In the interim, continue supportive care, anticoagulation , mild diuresis, O2 support and CPAP at bedtime. Subjective 24 Hr Interval Summary Free Text/Dictation patient still hypoxic on room air, we discussed d/c planning. No chest pain, comfortable on O2. Exam/Review of Systems Vital Signs Vitals Vital Signs Date Time Temp Pulse Resp B/P Pulse Ox O2 Delivery O2 Flow Rate FiO2 05/12/17 17:06 73 18 97 Nasal Cannula 2.0 05/12/17 15:28 98.5 107/64 05/12/17 07:18 30 Intake and Output 05/11/17 05/11/17 05/12/17 15:00 23:00 07:00 Intake Total 800 ml Balance 800 ml Exam Constitutional: alert, oriented, still looks like she's having mild difficulty with breathing Psych: other (blank affect) Head: normocephalic Eyes: PERRL ENMT: mucosa pink and moist, other (o2 via NC) Neck: supple Respiratory: diminished breath sounds (L>>R) Cardiovascular: murmurs/extra sounds, regular rate and rhythm Gastrointestinal: bowel sounds, non-tender, soft Extremities: No edema Neurological: nl mental status Results Result Diagram: 05/12/17 0840 05/12/17 0840 Results 24 hrs Laboratory Tests Test 05/11/17 20:42 05/12/17 07:50 05/12/17 08:40 05/12/17 12:01 Bedside Glucose 127 121 112 White Blood Count 5.3 Red Blood Count 4.61 Hemoglobin 13.2 Hematocrit 41.2 Mean Corpuscular Volume 89.4 Mean Corpuscular Hemoglobin 28.6 L Mean Corpuscular Hemoglobin Concent 32.0 Red Cell Distribution Width 14.9 H Platelet Count 234 Mean Platelet Volume 9.9 Neutrophils % 68.4 Lymphocytes % 16.1 Monocytes % 9.9 Eosinophils % 4.1 Basophils % 0.9 Nucleated Red Blood Cells % 0.0 Neutrophils # 3.6 Lymphocytes # 0.9 Monocytes # 0.5 Eosinophils # 0.2 Basophils # 0.1 Nucleated Red Blood Cells # 0.0 Sodium Level 139 Potassium Level 4.3 Chloride Level 101 Carbon Dioxide Level 29 Anion Gap 13 Blood Urea Nitrogen 12 Creatinine 0.67 Glucose Level 116 Calcium Level 9.8 Test 05/12/17 16:49 Bedside Glucose 110 Medications Medications Current Medications Ondansetron HCl (Zofran Inj) 4 mg Q6H PRN IV NAUSEA AND/OR VOMITING; Start at 17:30 Acetaminophen (Tylenol Tab) 650 mg Q6H PRN PO PAIN LEVEL 1-3 OR FEVER Last administered on 05/09/17t 03:12; Admin Dose 650 MG; Start 05/05/17 at 17:30 Acetaminophen/ Hydrocodone Bitart ([place] (5/325)) 1 tab Q6H PRN PO MODERATE PAIN LEVEL 4-6; Start 05/05/17 at 17:30 Morphine Sulfate (morphine) 2 mg Q4H PRN IV SEVERE PAIN LEVEL 7-10; Start 05/05 at 17:30 Magnesium Hydroxide (Milk Of Mag) 30 ml DAILY PRN PO CONSTIPATION; Start at 17:30 Sodium Biphosphate/ Sodium Phosphate (Fleet Enema) 133 ml DAILY PRN [place] CONSTIPATION; Start 05/05/17 at 17:30 Pantoprazole (Protonix Tab) 40 mg DAILY@06 PO Last administered on 05/12/17 05: 45; Admin Dose 40 MG; Start 05/06/17 at 06:00 Lorazepam (Ativan) 0.5 mg Q6H PRN PO ANXIETY; Start 05/05/17 at 17:30 Hydralazine HCl (Apresoline) 10 mg Q6H PRN IV ELEVATED BLOOD PRESSURE; Start at 17:30 Nitroglycerin (Nitroglycerin (Sl Tab) 0.4 Mg) 1 tab Q5M PRN SL ANGINA; Start at 17:30 Cholecalciferol (Vitamin D) 400 units DAILY PO Last administered on 05/12/17 08 :54; Admin Dose 400 UNITS; Start 05/06/17 at 09:00 Vitamin E (Vitamin E) 400 units DAILY PO Last administered on 05/12/17 08:53; Admin Dose 400 UNITS; Start 05/06/17 at 09:00 Docusate Sodium (Colace) 100 mg Q12 PO Last administered on 05/12/17 08:53; Admin Dose 100 MG; Start 05/06/17 at 21:00 Aspirin (Halfprin) 81 mg DAILY PO Last administered on 05/12/17 08:53; Admin Dose 81 MG; Start 05/07/17 at 09:00 Atorvastatin Calcium (Lipitor) 10 mg HS PO Last administered on 05/11/17 20:39 ; Admin Dose 10 MG; Start 05/06/17 at 21:00 Miscellaneous Information 1 ea NOTE XX ; Start 05/06/17 at 14:30 Glucose (Glutose) 15 gm Q15M PRN PO DECREASED GLUCOSE; Start 05/06/17 at 14:30 Glucose (Glutose) 22.5 gm Q15M PRN PO DECREASED GLUCOSE; Start 05/06/17 at 14: 30 Dextrose (D50w Syringe) 25 ml Q15M PRN IV DECREASED GLUCOSE; Start 05/06/17 at 14:30 Dextrose (D50w Syringe) 50 ml Q15M PRN IV DECREASED GLUCOSE; Start 05/06/17 at 14:30 Glucagon (Glucagen) 1 mg Q15M PRN IM DECREASED GLUCOSE; Start 05/06/17 at 14:30 Glucose (Glutose) 15 gm Q15M PRN BUCCAL DECREASED GLUCOSE; Start 05/06/17 at 14 :30 Diagnostic Test (Pha) (Accu-Chek) 1 ea 02 XX ; Start 05/07/17 at 02:00 Patient Own Medication 1 ea DAILY PO Last administered on 05/12/17 08:56; Admin Dose 1 EA; Start 05/08/17 at 12:00; Stop 05/22/17 at 09:01 Apixaban (Eliquis) 5 mg BID PO ; Start 05/17/17 at 09:00 Furosemide (Lasix) 20 mg DAILY IV Last administered on 05/12/17 08:55; Admin Dose 20 MG; Start 05/11/17 at 12:00; Stop 05/14/17 at 11:59 Levofloxacin (Levaquin) 750 mg DAILY@06 NGT Last administered on 05/12/17 05:45 ; Admin Dose 750 MG; Start 05/12/17 at 06:00; Stop 05/17/17 at 05:59 Apixaban (Eliquis) 10 mg BID PO Last administered on 05/12/17 08:54; Admin Dose 10 MG; Start 05/11/17 at 17:23; Stop 05/17/17 at 08:59 JJ BAE May 12, 2017 18:26
[2017-05-12] MEDS: ATORVASTATIN 10 MG TAB PO SCH (20:24)
[2017-05-12] MEDS: ALBUTEROL/IPRATROPIUM (NEB) 3 ML AMP HHN PRN (21:37)
[2017-05-13] VITALS (14 sets, daily range): BP systolic 102–131; BP diastolic 60–84; PULSE 73–97; RESP 18–20
--- NOTE | 2017-05-13 00:22 | CONS ---
Date/Time of Note Date/Time of Note DATE: 05/12/17 TIME: 18:22 Assessment/Plan Assessment/Plan Chief Complaint/Hosp Course Extensive bilateral acute pulmonary emboli. No saddle embolus. Lovenox 1 mg/kg subQ b.i.d 3.8 x 2.4 cm mass right middle lobe highly suspicious for primary lung cancer. No evidence of metastatic disease in the chest complete staging with CT ABD PULM F-UP- REPEAT CT CHEST IN 2 WE , AFTER CT - WILL DECIDE RE BX Shortness of breath. secondary to pulmonary embolism. 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 OBTAIN AND REVIEW OLD RECORD Lactic acidosis, unclear source. Signs of possible sepsis. Continue broad-spectrum antibiotics Questionable history of thyroid issues. Check thyroid panel, continue levothyroxine. Gastrointestinal prophylaxis. PPI. Deep venous thrombosis prophylaxis. Lovenox INCOMPLETE RECORD Problems: Consultation Date/Type/Reason Admit Date/Time May 06, 2017 at 14:11 Initial Consult Date 05/05/17 Type of Consultation: [facility] Referring Provider: MANJINDER HOWELL 24 HR Interval Summary Free Text/Dictation ALL NOTED NAD Exam/Review of Systems Vital Signs Vitals Vital Signs Date Time Temp Pulse Resp B/P Pulse Ox O2 Delivery O2 Flow Rate FiO2 05/13/17 00:15 98.1 88 18 131/78 98 05/12/17 23:11 30 05/12/17 22:08 2.0 05/12/17 21:38 Nasal Cannula Intake and Output 05/12/17 05/12/17 05/13/17 15:00 23:00 07:00 Intake Total 650 ml 740 ml Balance 650 ml 740 ml Exam GENERAL: The patient is lying in bed, answering questions appropriately. No acute distress. HEENT: Pupils equal, round, react to light. Extraocular muscles intact. NECK: Slightly enlarged. Surgical scar noted on the right side of the neck, otherwise supple. LUNGS: Clear to auscultation bilaterally. No wheezes. CARDIOVASCULAR: Tachycardic heart rate but regular. No rubs or gallops. ABDOMEN: Soft, nontender, nondistended. Normal bowel sounds. No rebound or guarding. MUSCULOSKELETAL: No lower extremity edema bilaterally. NEUROLOGIC: No focal deficits. Results Result Diagram: 05/12/1740 7/2/17 0840 Results 24 hrs Laboratory Tests Test 05/12/17 07:50 05/12/17 08:40 05/12/17 12:01 05/12/17 16:49 Bedside Glucose 121 112 110 White Blood Count 5.3 Red Blood Count 4.61 Hemoglobin 13.2 Hematocrit 41.2 Mean Corpuscular Volume 89.4 Mean Corpuscular Hemoglobin 28.6 L Mean Corpuscular Hemoglobin Concent 32.0 Red Cell Distribution Width 14.9 H Platelet Count 234 Mean Platelet Volume 9.9 Neutrophils % 68.4 Lymphocytes % 16.1 Monocytes % 9.9 Eosinophils % 4.1 Basophils % 0.9 Nucleated Red Blood Cells % 0.0 Neutrophils # 3.6 Lymphocytes # 0.9 Monocytes # 0.5 Eosinophils # 0.2 Basophils # 0.1 Nucleated Red Blood Cells # 0.0 Sodium Level 139 Potassium Level 4.3 Chloride Level 101 Carbon Dioxide Level 29 Anion Gap 13 Blood Urea Nitrogen 12 Creatinine 0.67 Glucose Level 116 Calcium Level 9.8 Test 05/12/17 20:23 Bedside Glucose 117 Medications Medications Current Medications Ondansetron HCl (Zofran Inj) 4 mg Q6H PRN IV NAUSEA AND/OR VOMITING; Start at 17:30 Acetaminophen (Tylenol Tab) 650 mg Q6H PRN PO PAIN LEVEL 1-3 OR FEVER Last administered on 05/09/17 03:12; Admin Dose 650 MG; Start 05/05/17 at 17:30 Acetaminophen/ Hydrocodone Bitart ([place] (5/325)) 1 tab Q6H PRN PO MODERATE PAIN LEVEL 4-6; Start 05/05/17 at 17:30 Morphine Sulfate (morphine) 2 mg Q4H PRN IV SEVERE PAIN LEVEL 7-10; Start 05/05 at 17:30 Magnesium Hydroxide (Milk Of Mag) 30 ml DAILY PRN PO CONSTIPATION; Start at 17:30 Sodium Biphosphate/ Sodium Phosphate (Fleet Enema) 133 ml DAILY PRN [place] CONSTIPATION; Start 05/05/17 at 17:30 Pantoprazole (Protonix Tab) 40 mg DAILY@06 PO Last administered on 05/12/17 05: 45; Admin Dose 40 MG; Start 05/06/17 at 06:00 Lorazepam (Ativan) 0.5 mg Q6H PRN PO ANXIETY; Start 05/05/17 at 17:30 Hydralazine HCl (Apresoline) 10 mg Q6H PRN IV ELEVATED BLOOD PRESSURE; Start at 17:30 Nitroglycerin (Nitroglycerin (Sl Tab) 0.4 Mg) 1 tab Q5M PRN SL ANGINA; Start at 17:30 Cholecalciferol (Vitamin D) 400 units DAILY PO Last administered on 05/12/17 08 :54; Admin Dose 400 UNITS; Start 05/06/17 at 09:00 Vitamin E (Vitamin E) 400 units DAILY PO Last administered on 05/12/17 08:53; Admin Dose 400 UNITS; Start 05/06/17 at 09:00 Docusate Sodium (Colace) 100 mg Q12 PO Last administered on 05/12/17 20:24; Admin Dose 100 MG; Start 05/06/17 at 21:00 Aspirin (Halfprin) 81 mg DAILY PO Last administered on 05/12/17 08:53; Admin Dose 81 MG; Start 05/07/17 at 09:00 Atorvastatin Calcium (Lipitor) 10 mg HS PO Last administered on 05/12/17 20:24 ; Admin Dose 10 MG; Start 05/06/17 at 21:00 Miscellaneous Information 1 ea NOTE XX ; Start 05/06/17 at 14:30 Glucose (Glutose) 15 gm Q15M PRN PO DECREASED GLUCOSE; Start 05/06/17 at 14:30 Glucose (Glutose) 22.5 gm Q15M PRN PO DECREASED GLUCOSE; Start 05/06/17 at 14: 30 Dextrose (D50w Syringe) 25 ml Q15M PRN IV DECREASED GLUCOSE; Start 05/06/17 at 14:30 Dextrose (D50w Syringe) 50 ml Q15M PRN IV DECREASED GLUCOSE; Start 05/06/17 at 14:30 Glucagon (Glucagen) 1 mg Q15M PRN IM DECREASED GLUCOSE; Start 05/06/17 at 14:30 Glucose (Glutose) 15 gm Q15M PRN BUCCAL DECREASED GLUCOSE; Start 05/06/17 at 14 :30 Diagnostic Test (Pha) (Accu-Chek) 1 ea 02 XX ; Start 05/07/17 at 02:00 Patient Own Medication 1 ea DAILY PO Last administered on 7/2/17at 08:56; Admin Dose 1 EA; Start 05/08/17 at 12:00; Stop 05/22/17 at 09:01 Apixaban (Eliquis) 5 mg BID PO ; Start 05/17/17 at 09:00 Furosemide (Lasix) 20 mg DAILY IV Last administered on 05/12/17 08:55; Admin Dose 20 MG; Start 05/11/17 at 12:00; Stop 05/14/17 at 11:59 Levofloxacin (Levaquin) 750 mg DAILY@06 NGT Last administered on 05/12/17 05:45 ; Admin Dose 750 MG; Start 05/12/17 at 06:00; Stop 05/17/17 at 05:59 Apixaban (Eliquis) 10 mg BID PO Last administered on 05/12/17 20:24; Admin Dose 10 MG; Start 05/11/17 at 17:23; Stop 05/17/17 at 08:59 ROSSANA ALARCON MD May 13, 2017 00:22
[2017-05-13] MEDS: ACCUCHECK AT 2AM (Patients on SS coverage) XX SCH (02:00)
[2017-05-13] MEDS: LEVOFLOXACIN 750 MG TABLET NGT SCH (06:31)
[2017-05-13] MEDS: PANTOPRAZOLE (EC) 40 MG TAB PO SCH (06:31)
[2017-05-13] MEDS: LEVOTHYROXINE 100 MCG TAB PO SCH (07:01)
[2017-05-13] MEDS: INSULIN ASPART [NOVOLOG] 3 ML PEN SC SCH ×4 (07:55→21:00)
[2017-05-13 08:40] LABS: ADD SCAN DIFF NO
[2017-05-13 08:42] LABS: BASOPHIL # 0.1 10^3/ul (0.0-0.1); BASOPHILS % 1.1 % (0.0-2.0); EOSINOPHILS # 0.2 10^3/ul (0.0-0.5); EOSINOPHILS % 4.3 % (0.0-7.0); HEMATOCRIT 42.2 % (37.0-47.0); HEMOGLOBIN 13.9 g/dl (12.0-16.0); LYMPHOCYTES # 0.8 10^3/ul (0.8-2.9); MEAN CORPUSCULAR HGB CONC 32.9 g/dl (32.0-37.0); MEAN CORPUSCULAR VOLUME 87.9 fl (82.0-101.0); MEAN PLATELET VOLUME 9.6 fl (7.4-10.4); MONOCYTE # 0.6 10^3/ul (0.3-0.9); MONOCYTES % 10.7 % (0.0-11.0); NEUTROPHIL # 3.8 10^3/ul (1.6-7.5); NEUTROPHILS % 69.3 % (39.0-77.0); PLATELET COUNT 235 10^3/UL (140-415); RED CELL DISTRIBUTION WIDTH 14.5 % (11.5-14.5); WHITE BLOOD COUNT 5.4 10^3/ul (4.8-10.8)
[2017-05-13 09:03] LABS: CREATININE 0.72 mg/dl (0.44-1.00); POTASSIUM 3.8 mmol/L (3.5-5.1)
[2017-05-13] MEDS: ASPIRIN (EC) 81 MG TAB PO SCH (09:10)
[2017-05-13] MEDS: APIXABAN 5 MG TABLET PO SCH ×2 (09:10→21:14)
[2017-05-13] MEDS: CHOLECALCIFEROL 400 UNITS TAB PO SCH (09:10)
[2017-05-13] MEDS: VITAMIN E 400 UNITS CAP PO SCH (09:10)
[2017-05-13] MEDS: DOCUSATE SODIUM 100 MG CAP PO SCH ×2 (09:10→21:14)
[2017-05-13] MEDS: FUROSEMIDE 20 MG INJ IV SCH (09:12)
[2017-05-13] MEDS: LENALIDOMIDE 5 MG PO SCH (09:19)
--- NOTE | 2017-05-13 11:31 | CONS ---
Date/Time of Note Date/Time of Note DATE: 05/13/17 TIME: 11:28 Consult Date/Type/Reason Admit Date/Time May 06, 2017 at 14:11 Initial Consult Date 05/08/17 Type of Consultation: Pulmonary Ordering Provider: MANJINDER HOWELL Subjective Patient comfortable at rest no acute distress talking in full complete sentences Objective Vital Signs Date Time Temp Pulse Resp B/P Pulse Ox O2 Delivery O2 Flow Rate FiO2 05/13/17 08:05 2.0 05/13/17 07:24 98.1 76 18 118/70 90 05/13/17 05:00 30 05/12/17 21:38 Nasal Cannula Intake and Output 05/12/17 05/12/17 05/13/17 15:00 23:00 07:00 Intake Total 650 ml 740 ml Balance 650 ml 740 ml Exam GENERAL: VITAL SIGNS: per chart NECK: Supple. No JVD or lymphadenopathy. CARDIAC EXAM: S1, S2. No added sounds or murmurs. CHEST: clear bilaterally, No added sounds, rales or wheezes ABDOMEN: Soft, nontender. No guarding or rebound. EXTREMITIES: No cyanosis, clubbing or edema. NEUROLOGIC: Generalized weakness. No focal deficits. Results/Medications Result Diagram: 05/13/17 0825 05/13/17 0825 Results 24 hrs Laboratory Tests Test 05/12/17 12:01 05/12/17 16:49 05/12/17 20:23 05/13/17 08:14 Bedside Glucose 112 110 117 139 Test 05/13/17 08:25 White Blood Count 5.4 Red Blood Count 4.80 Hemoglobin 13.9 Hematocrit 42.2 Mean Corpuscular Volume 87.9 Mean Corpuscular Hemoglobin 29.0 Mean Corpuscular Hemoglobin Concent 32.9 Red Cell Distribution Width 14.5 Platelet Count 235 Mean Platelet Volume 9.6 Neutrophils % 69.3 Lymphocytes % 14.0 L Monocytes % 10.7 Eosinophils % 4.3 Basophils % 1.1 Nucleated Red Blood Cells % 0.0 Neutrophils # 3.8 Lymphocytes # 0.8 Monocytes # 0.6 Eosinophils # 0.2 Basophils # 0.1 Nucleated Red Blood Cells # 0.0 Sodium Level 136 Potassium Level 3.8 Chloride Level 100 Carbon Dioxide Level 27 Anion Gap 13 Blood Urea Nitrogen 14 Creatinine 0.72 Glucose Level 147 Calcium Level 10.0 Medications Current Medications Ondansetron HCl (Zofran Inj) 4 mg Q6H PRN IV NAUSEA AND/OR VOMITING; Start at 17:30 Acetaminophen (Tylenol Tab) 650 mg Q6H PRN PO PAIN LEVEL 1-3 OR FEVER Last administered on 05/09/17 03:12; Admin Dose 650 MG; Start 05/05/17 at 17:30 Acetaminophen/ Hydrocodone Bitart ([place] (5/325)) 1 tab Q6H PRN PO MODERATE PAIN LEVEL 4-6; Start 05/05/17 at 17:30 Morphine Sulfate (morphine) 2 mg Q4H PRN IV SEVERE PAIN LEVEL 7-10; Start 05/05 at 17:30 Magnesium Hydroxide (Milk Of Mag) 30 ml DAILY PRN PO CONSTIPATION; Start at 17:30 Sodium Biphosphate/ Sodium Phosphate (Fleet Enema) 133 ml DAILY PRN [place] CONSTIPATION; Start 05/05/17 at 17:30 Pantoprazole (Protonix Tab) 40 mg DAILY@06 PO Last administered on 05/13/17 06: 31; Admin Dose 40 MG; Start 05/06/17 at 06:00 Lorazepam (Ativan) 0.5 mg Q6H PRN PO ANXIETY; Start 05/05/17 at 17:30 Hydralazine HCl (Apresoline) 10 mg Q6H PRN IV ELEVATED BLOOD PRESSURE; Start at 17:30 Nitroglycerin (Nitroglycerin (Sl Tab) 0.4 Mg) 1 tab Q5M PRN SL ANGINA; Start at 17:30 Cholecalciferol (Vitamin D) 400 units DAILY PO Last administered on 05/13/17 09 :10; Admin Dose 400 UNITS; Start 05/06/17 at 09:00 Vitamin E (Vitamin E) 400 units DAILY PO Last administered on 05/13/17 09:10; Admin Dose 400 UNITS; Start 05/06/17 at 09:00 Docusate Sodium (Colace) 100 mg Q12 PO Last administered on 05/13/17 09:10; Admin Dose 100 MG; Start 05/06/17 at 21:00 Aspirin (Halfprin) 81 mg DAILY PO Last administered on 05/13/17 09:10; Admin Dose 81 MG; Start 05/07/17 at 09:00 Atorvastatin Calcium (Lipitor) 10 mg HS PO Last administered on 05/12/17 20:24 ; Admin Dose 10 MG; Start 05/06/17 at 21:00 Miscellaneous Information 1 ea NOTE XX ; Start 05/06/17 at 14:30 Glucose (Glutose) 15 gm Q15M PRN PO DECREASED GLUCOSE; Start 05/06/17 at 14:30 Glucose (Glutose) 22.5 gm Q15M PRN PO DECREASED GLUCOSE; Start 05/06/17 at 14: 30 Dextrose (D50w Syringe) 25 ml Q15M PRN IV DECREASED GLUCOSE; Start 05/06/17 at 14:30 Dextrose (D50w Syringe) 50 ml Q15M PRN IV DECREASED GLUCOSE; Start 05/06/17 at 14:30 Glucagon (Glucagen) 1 mg Q15M PRN IM DECREASED GLUCOSE; Start 05/06/17 at 14:30 Glucose (Glutose) 15 gm Q15M PRN BUCCAL DECREASED GLUCOSE; Start 05/06/17 at 14 :30 Diagnostic Test (Pha) (Accu-Chek) 1 ea 02 XX ; Start 05/07/17 at 02:00 Patient Own Medication 1 ea DAILY PO Last administered on 05/13/17 09:19; Admin Dose 1 EA; Start 05/08/17 at 12:00; Stop 05/22/17 at 09:01 Apixaban (Eliquis) 5 mg BID PO ; Start 05/17/17 at 09:00 Furosemide (Lasix) 20 mg DAILY IV Last administered on 05/13/17 09:12; Admin Dose 20 MG; Start 05/11/17 at 12:00; Stop 05/14/17 at 11:59 Levofloxacin (Levaquin) 750 mg DAILY@06 NGT Last administered on 05/13/17 06:31 ; Admin Dose 750 MG; Start 05/12/17 at 06:00; Stop 05/17/17 at 05:59 Apixaban (Eliquis) 10 mg BID PO Last administered on 05/13/17 09:10; Admin Dose 10 MG; Start 05/11/17 at 17:23; Stop 05/17/17 at 08:59 Assessment/Plan Chief Complaint/Hosp Course IMP: 1. Acute PE--unprovoked 2. RML mass RECS: 1. Continues anticoagulation with Eliquis 2. Will discuss with radiology regarding CT-guided biopsy. May be safer to continue anticoagulation for acute pulmonary embolus and perform outpatient PET scan. Follow-up with me in the office. Problems: KEVIN HENSLEY MD, [facility] May 13, 2017 11:31
--- NOTE | 2017-05-13 18:20 | PN ---
Date/Time of Note Date/Time of Note DATE: 05/13/17 TIME: 18:18 Assessment/Plan VTE Prophylaxis VTE Prophylaxis Intervention: other Lines/Catheters IV [facility] Type [facility]from [facility] Urinary Cath still in place: No Assessment/Plan Chief Complaint/Hosp Course 1. Acute shortness of breath secondary to #2 : resolved / stable on room air 2. Extensive bilateral acute pulmonary emboli : s/p lovenox, now on Eliquis 3. Right middle lobe mass suspicious for primary lung cancer without evidence of metastatic disease: Needs repeat CT by May 19 to reassess 4. 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 Hypothyroidism: still with suboptimal control. : dosage gently increased to 100mcg, repeat TSH in a few weeks 6. Lactic acidosis likely secondary to respiratory insufficiency: resolved 7. Prediabetes with hemoglobin A1c of 6.2 8. Dyslipidemia 9. Obesity r/o OHS versus SRAVANTHI: needs outpt sleep study 10. Chronic cognitive deficits, ?Early dementia vs Chronic MR 11. Mild Pulmonary HTN on Echo ?/ #2 PLAN: * Patient has a new lung mass that needs to be biopsied to determine if it is metastasis or a new primary lung cancer. Interventional radiology and Dr. Gomez had recommended treating the pulmonary embolus for at least 2 weeks then repeating the CT scan and then doing a biopsy if it is still indicated. * The plan was to [facility] her [facility], and then have her follow-up as outpatient with oncology for repeat CT scan and further interventions; however the [facility] will not take patient back with oxygen therapy and so at this time are working on alternative placement even as we try to wean her off oxygen. * If we cannot find placement before the end of next week, patient might as well stay and repeat her CAT scan and continue interventions as indicated. * In the interim, continue supportive care, anticoagulation , mild diuresis, O2 support and CPAP at bedtime. Prophylaxis: Eliquis Problems: Subjective 24 Hr Interval Summary Respiratory: shortness of breath Exam/Review of Systems Vital Signs Vitals Vital Signs Date Time Temp Pulse Resp B/P Pulse Ox O2 Delivery O2 Flow Rate FiO2 05/13/17 16:13 93 05/13/17 15:19 99.0 20 121/72 92 05/13/17 14:52 Room Air 05/13/17 08:35 2.0 05/13/17 05:00 30 Intake and Output 05/12/17 05/12/17 05/13/17 15:00 23:00 07:00 Intake Total 650 ml 740 ml Balance 650 ml 740 ml Exam Constitutional: alert, oriented Respiratory: clear to auscultation Cardiovascular: regular rate and rhythm Gastrointestinal: soft, No distended Musculoskeletal: nl extremities to inspection Results Result Diagram: 05/13/17 0825 05/13/17 0825 Results 24 hrs Laboratory Tests Test 05/12/17 20:23 05/13/17 08:14 05/13/17 08:25 05/13/17 12:17 Bedside Glucose 117 139 120 White Blood Count 5.4 Red Blood Count 4.80 Hemoglobin 13.9 Hematocrit 42.2 Mean Corpuscular Volume 87.9 Mean Corpuscular Hemoglobin 29.0 Mean Corpuscular Hemoglobin Concent 32.9 Red Cell Distribution Width 14.5 Platelet Count 235 Mean Platelet Volume 9.6 Neutrophils % 69.3 Lymphocytes % 14.0 L Monocytes % 10.7 Eosinophils % 4.3 Basophils % 1.1 Nucleated Red Blood Cells % 0.0 Neutrophils # 3.8 Lymphocytes # 0.8 Monocytes # 0.6 Eosinophils # 0.2 Basophils # 0.1 Nucleated Red Blood Cells # 0.0 Sodium Level 136 Potassium Level 3.8 Chloride Level 100 Carbon Dioxide Level 27 Anion Gap 13 Blood Urea Nitrogen 14 Creatinine 0.72 Glucose Level 147 Calcium Level 10.0 Test 05/13/17 17:10 Bedside Glucose 121 Medications Medications Current Medications Ondansetron HCl (Zofran Inj) 4 mg Q6H PRN IV NAUSEA AND/OR VOMITING; Start at 17:30 Acetaminophen (Tylenol Tab) 650 mg Q6H PRN PO PAIN LEVEL 1-3 OR FEVER Last administered on 05/09/17t 03:12; Admin Dose 650 MG; Start 05/05/17 at 17:30 Acetaminophen/ Hydrocodone Bitart ([place] (5/325)) 1 tab Q6H PRN PO MODERATE PAIN LEVEL 4-6; Start 05/05/17 at 17:30 Morphine Sulfate (morphine) 2 mg Q4H PRN IV SEVERE PAIN LEVEL 7-10; Start 05/05 at 17:30 Magnesium Hydroxide (Milk Of Mag) 30 ml DAILY PRN PO CONSTIPATION; Start at 17:30 Sodium Biphosphate/ Sodium Phosphate (Fleet Enema) 133 ml DAILY PRN [place] CONSTIPATION; Start 05/05/17 at 17:30 Pantoprazole (Protonix Tab) 40 mg DAILY@06 PO Last administered on 05/13/17 06: 31; Admin Dose 40 MG; Start 05/06/17 at 06:00 Lorazepam (Ativan) 0.5 mg Q6H PRN PO ANXIETY; Start 05/05/17 at 17:30 Hydralazine HCl (Apresoline) 10 mg Q6H PRN IV ELEVATED BLOOD PRESSURE; Start at 17:30 Nitroglycerin (Nitroglycerin (Sl Tab) 0.4 Mg) 1 tab Q5M PRN SL ANGINA; Start at 17:30 Cholecalciferol (Vitamin D) 400 units DAILY PO Last administered on 05/13/17 09 :10; Admin Dose 400 UNITS; Start 05/06/17 at 09:00 Vitamin E (Vitamin E) 400 units DAILY PO Last administered on 05/13/17 09:10; Admin Dose 400 UNITS; Start 05/06/17 at 09:00 Docusate Sodium (Colace) 100 mg Q12 PO Last administered on 05/13/17 09:10; Admin Dose 100 MG; Start 05/06/17 at 21:00 Aspirin (Halfprin) 81 mg DAILY PO Last administered on 05/13/17 09:10; Admin Dose 81 MG; Start 05/07/17 at 09:00 Atorvastatin Calcium (Lipitor) 10 mg HS PO Last administered on 05/12/17 20:24 ; Admin Dose 10 MG; Start 05/06/17 at 21:00 Miscellaneous Information 1 ea NOTE XX ; Start 05/06/17 at 14:30 Glucose (Glutose) 15 gm Q15M PRN PO DECREASED GLUCOSE; Start 05/06/17 at 14:30 Glucose (Glutose) 22.5 gm Q15M PRN PO DECREASED GLUCOSE; Start 05/06/17 at 14: 30 Dextrose (D50w Syringe) 25 ml Q15M PRN IV DECREASED GLUCOSE; Start 05/06/17 at 14:30 Dextrose (D50w Syringe) 50 ml Q15M PRN IV DECREASED GLUCOSE; Start 05/06/17 at 14:30 Glucagon (Glucagen) 1 mg Q15M PRN IM DECREASED GLUCOSE; Start 05/06/17 at 14:30 Glucose (Glutose) 15 gm Q15M PRN BUCCAL DECREASED GLUCOSE; Start 05/06/17 at 14 :30 Diagnostic Test (Pha) (Accu-Chek) 1 ea 02 XX ; Start 05/07/17 at 02:00 Patient Own Medication 1 ea DAILY PO Last administered on 05/13/17 09:19; Admin Dose 1 EA; Start 05/08/17 at 12:00; Stop 05/22/17 at 09:01 Apixaban (Eliquis) 5 mg BID PO ; Start 05/17/17 at 09:00 Furosemide (Lasix) 20 mg DAILY IV Last administered on 05/13/17 09:12; Admin Dose 20 MG; Start 05/11/17 at 12:00; Stop 05/14/17 at 11:59 Levofloxacin (Levaquin) 750 mg DAILY@06 NGT Last administered on 05/13/17 06:31 ; Admin Dose 750 MG; Start 05/12/17 at 06:00; Stop 05/17/17 at 05:59 Apixaban (Eliquis) 10 mg BID PO Last administered on 05/13/17 09:10; Admin Dose 10 MG; Start 05/11/17 at 17:23; Stop 05/17/17 at 08:59 DAVONTE THOMPSON May 13, 2017 18:20
--- NOTE | 2017-05-13 19:01 | CONS ---
Date/Time of Note Date/Time of Note DATE: 05/13/17 TIME: 19:00 Assessment/Plan Assessment/Plan Chief Complaint/Hosp Course Extensive bilateral acute pulmonary emboli. No saddle embolus. Lovenox 1 mg/kg subQ b.i.d 3.8 x 2.4 cm mass right middle lobe highly suspicious for primary lung cancer. No evidence of metastatic disease in the chest complete staging with CT ABD PULM F-UP- REPEAT CT CHEST IN 2 WE , AFTER CT - WILL DECIDE RE BX Shortness of breath. secondary to pulmonary embolism. 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 OBTAIN AND REVIEW OLD RECORD Lactic acidosis, unclear source. Signs of possible sepsis. Continue broad-spectrum antibiotics Questionable history of thyroid issues. Check thyroid panel, continue levothyroxine. Gastrointestinal prophylaxis. PPI. Deep venous thrombosis prophylaxis. Lovenox INCOMPLETE RECORD Problems: Consultation Date/Type/Reason Admit Date/Time May 06, 2017 at 14:11 Initial Consult Date 05/05/17 Type of Consultation: [facility] Referring Provider: MANJINDER HOWELL 24 HR Interval Summary Free Text/Dictation ALL NOTED NAD Exam/Review of Systems Vital Signs Vitals Vital Signs Date Time Temp Pulse Resp B/P Pulse Ox O2 Delivery O2 Flow Rate FiO2 05/13/17 16:13 93 05/13/17 15:19 99.0 20 121/72 92 05/13/17 14:52 Room Air 05/13/17 08:35 2.0 05/13/17 05:00 30 Intake and Output 05/12/17 05/12/17 05/13/17 15:00 23:00 07:00 Intake Total 650 ml 740 ml Balance 650 ml 740 ml Exam GENERAL: The patient is lying in bed, answering questions appropriately. No acute distress. HEENT: Pupils equal, round, react to light. Extraocular muscles intact. NECK: Slightly enlarged. Surgical scar noted on the right side of the neck, otherwise supple. LUNGS: Clear to auscultation bilaterally. No wheezes. CARDIOVASCULAR: Tachycardic heart rate but regular. No rubs or gallops. ABDOMEN: Soft, nontender, nondistended. Normal bowel sounds. No rebound or guarding. MUSCULOSKELETAL: No lower extremity edema bilaterally. NEUROLOGIC: No focal deficits. Results Result Diagram: 05/13/17 0825 05/13/17 0825 Results 24 hrs Laboratory Tests Test 05/12/17 20:23 05/13/17 08:14 05/13/17 08:25 05/13/17 12:17 Bedside Glucose 117 139 120 White Blood Count 5.4 Red Blood Count 4.80 Hemoglobin 13.9 Hematocrit 42.2 Mean Corpuscular Volume 87.9 Mean Corpuscular Hemoglobin 29.0 Mean Corpuscular Hemoglobin Concent 32.9 Red Cell Distribution Width 14.5 Platelet Count 235 Mean Platelet Volume 9.6 Neutrophils % 69.3 Lymphocytes % 14.0 L Monocytes % 10.7 Eosinophils % 4.3 Basophils % 1.1 Nucleated Red Blood Cells % 0.0 Neutrophils # 3.8 Lymphocytes # 0.8 Monocytes # 0.6 Eosinophils # 0.2 Basophils # 0.1 Nucleated Red Blood Cells # 0.0 Sodium Level 136 Potassium Level 3.8 Chloride Level 100 Carbon Dioxide Level 27 Anion Gap 13 Blood Urea Nitrogen 14 Creatinine 0.72 Glucose Level 147 Calcium Level 10.0 Test 05/13/17 17:10 Bedside Glucose 121 Medications Medications Current Medications Ondansetron HCl (Zofran Inj) 4 mg Q6H PRN IV NAUSEA AND/OR VOMITING; Start at 17:30 Acetaminophen (Tylenol Tab) 650 mg Q6H PRN PO PAIN LEVEL 1-3 OR FEVER Last administered on 05/09/17 03:12; Admin Dose 650 MG; Start 05/05/17 at 17:30 Acetaminophen/ Hydrocodone Bitart ([place] (5/325)) 1 tab Q6H PRN PO MODERATE PAIN LEVEL 4-6; Start 05/05/17 at 17:30 Morphine Sulfate (morphine) 2 mg Q4H PRN IV SEVERE PAIN LEVEL 7-10; Start 05/05 at 17:30 Magnesium Hydroxide (Milk Of Mag) 30 ml DAILY PRN PO CONSTIPATION; Start at 17:30 Sodium Biphosphate/ Sodium Phosphate (Fleet Enema) 133 ml DAILY PRN [place] CONSTIPATION; Start 05/05/17 at 17:30 Pantoprazole (Protonix Tab) 40 mg DAILY@06 PO Last administered on 05/13/17 06: 31; Admin Dose 40 MG; Start 05/06/17 at 06:00 Lorazepam (Ativan) 0.5 mg Q6H PRN PO ANXIETY; Start 05/05/17 at 17:30 Hydralazine HCl (Apresoline) 10 mg Q6H PRN IV ELEVATED BLOOD PRESSURE; Start at 17:30 Nitroglycerin (Nitroglycerin (Sl Tab) 0.4 Mg) 1 tab Q5M PRN SL ANGINA; Start at 17:30 Cholecalciferol (Vitamin D) 400 units DAILY PO Last administered on 05/13/17 09 :10; Admin Dose 400 UNITS; Start 05/06/17 at 09:00 Vitamin E (Vitamin E) 400 units DAILY PO Last administered on 05/13/17 09:10; Admin Dose 400 UNITS; Start 05/06/17 at 09:00 Docusate Sodium (Colace) 100 mg Q12 PO Last administered on 05/13/17 09:10; Admin Dose 100 MG; Start 05/06/17 at 21:00 Aspirin (Halfprin) 81 mg DAILY PO Last administered on 05/13/17 09:10; Admin Dose 81 MG; Start 05/07/17 at 09:00 Atorvastatin Calcium (Lipitor) 10 mg HS PO Last administered on 05/12/17 20:24 ; Admin Dose 10 MG; Start 05/06/17 at 21:00 Miscellaneous Information 1 ea NOTE XX ; Start 05/06/17 at 14:30 Glucose (Glutose) 15 gm Q15M PRN PO DECREASED GLUCOSE; Start 05/06/17 at 14:30 Glucose (Glutose) 22.5 gm Q15M PRN PO DECREASED GLUCOSE; Start 05/06/17 at 14: 30 Dextrose (D50w Syringe) 25 ml Q15M PRN IV DECREASED GLUCOSE; Start 05/06/17 at 14:30 Dextrose (D50w Syringe) 50 ml Q15M PRN IV DECREASED GLUCOSE; Start 05/06/17 at 14:30 Glucagon (Glucagen) 1 mg Q15M PRN IM DECREASED GLUCOSE; Start 05/06/17 at 14:30 Glucose (Glutose) 15 gm Q15M PRN BUCCAL DECREASED GLUCOSE; Start 05/06/17 at 14 :30 Diagnostic Test (Pha) (Accu-Chek) 1 ea 02 XX ; Start 05/07/17 at 02:00 Patient Own Medication 1 ea DAILY PO Last administered on 05/13/17 09:19; Admin Dose 1 EA; Start 05/08/17 at 12:00; Stop 05/22/17 at 09:01 Apixaban (Eliquis) 5 mg BID PO ; Start 05/17/17 at 09:00 Furosemide (Lasix) 20 mg DAILY IV Last administered on 05/13/17 09:12; Admin Dose 20 MG; Start 05/11/17 at 12:00; Stop 05/14/17 at 11:59 Levofloxacin (Levaquin) 750 mg DAILY@06 NGT Last administered on 05/13/17 06:31 ; Admin Dose 750 MG; Start 05/12/17 at 06:00; Stop 05/17/17 at 05:59 Apixaban (Eliquis) 10 mg BID PO Last administered on 05/13/17 09:10; Admin Dose 10 MG; Start 05/11/17 at 17:23; Stop 05/17/17 at 08:59 ROSSANA ALARCON MD May 13, 2017 19:01
[2017-05-13] MEDS: ATORVASTATIN 10 MG TAB PO SCH (21:14)
[2017-05-14] VITALS (11 sets, daily range): BP systolic 114–136; BP diastolic 62–74; PULSE 87–96; RESP 15–20
[2017-05-14] MEDS: ACCUCHECK AT 2AM (Patients on SS coverage) XX SCH (02:00)
[2017-05-14] MEDS: PANTOPRAZOLE (EC) 40 MG TAB PO SCH (05:13)
[2017-05-14] MEDS: LEVOFLOXACIN 750 MG TABLET NGT SCH (05:14)
[2017-05-14] MEDS: LEVOTHYROXINE 100 MCG TAB PO SCH (05:14)
[2017-05-14] MEDS: INSULIN ASPART [NOVOLOG] 3 ML PEN SC SCH ×4 (07:50→21:00)
[2017-05-14] MEDS: APIXABAN 5 MG TABLET PO SCH ×2 (08:14→20:43)
[2017-05-14] MEDS: DOCUSATE SODIUM 100 MG CAP PO SCH ×2 (08:14→20:43)
[2017-05-14] MEDS: VITAMIN E 400 UNITS CAP PO SCH (08:14)
[2017-05-14] MEDS: CHOLECALCIFEROL 400 UNITS TAB PO SCH (08:14)
[2017-05-14] MEDS: ASPIRIN (EC) 81 MG TAB PO SCH (08:15)
[2017-05-14] MEDS: LENALIDOMIDE 5 MG PO SCH (08:16)
[2017-05-14] MEDS: FUROSEMIDE 20 MG INJ IV SCH (08:17)
--- NOTE | 2017-05-14 12:49 | PN ---
Date/Time of Note Date/Time of Note DATE: 05/14/17 TIME: 12:49 Assessment/Plan VTE Prophylaxis VTE Prophylaxis Intervention: other Lines/Catheters IV C[facility]ter Type (from [facility]): [facility] Urinary Cath still in place: No Assessment/Plan Chief Complaint/Hosp Course 1. Acute shortness of breath secondary to #2 : resolved / stable on room air 2. Extensive bilateral acute pulmonary emboli : s/p lovenox, now on Eliquis 3. Right middle lobe mass suspicious for primary lung cancer without evidence of metastatic disease: Needs repeat CT by May 19 to reassess 4. 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 Hypothyroidism: still with suboptimal control. : dosage gently increased to 100mcg, repeat TSH in a few weeks 6. Lactic acidosis likely secondary to respiratory insufficiency: resolved 7. Prediabetes with hemoglobin A1c of 6.2 8. Dyslipidemia 9. Obesity r/o OHS versus SRAVANTHI: needs outpt sleep study 10. Chronic cognitive deficits, ?Early dementia vs Chronic MR 11. Mild Pulmonary HTN on Echo ?/ #2 PLAN: * Patient has a new lung mass that needs to be biopsied to determine if it is metastasis or a new primary lung cancer. Interventional radiology and Dr. Gomez had recommended treating the pulmonary embolus for at least 2 weeks then repeating the CT scan and then doing a biopsy if it is still indicated. * The plan was to [facility], and then have her follow-up as outpatient with oncology for repeat CT scan and further interventions; however the [facility] will not take patient back with oxygen therapy and so at this time are working on alternative placement even as we try to wean her off oxygen. * If we cannot find placement before the end of next week, patient might as well stay and repeat her CAT scan and continue interventions as indicated. * In the interim, continue supportive care, anticoagulation , mild diuresis, O2 support and CPAP at bedtime. Prophylaxis: Eliquis Problems: Subjective 24 Hr Interval Summary Respiratory: shortness of breath Exam/Review of Systems Vital Signs Vitals Vital Signs Date Time Temp Pulse Resp B/P Pulse Ox O2 Delivery O2 Flow Rate FiO2 05/14/17 12:10 96 05/14/17 11:21 98.1 20 116/74 95 05/14/17 08:31 Nasal Cannula 2.0 05/13/17 05:00 30 Intake and Output 05/13/17 05/13/17 05/14/17 15:00 23:00 07:00 Intake Total 800 ml 800 ml 800 ml Balance 800 ml 800 ml 800 ml Exam Constitutional: alert Respiratory: clear to auscultation Cardiovascular: regular rate and rhythm Gastrointestinal: soft, No distended Musculoskeletal: nl extremities to inspection Results Result Diagram: 05/13/1725 05/13/17 0825 Results 24 hrs Laboratory Tests Test 05/13/17 17:10 05/13/17 21:12 05/14/17 07:46 05/14/17 11:44 Bedside Glucose 121 131 118 146 Medications Medications Current Medications Ondansetron HCl (Zofran Inj) 4 mg Q6H PRN IV NAUSEA AND/OR VOMITING; Start at 17:30 Acetaminophen (Tylenol Tab) 650 mg Q6H PRN PO PAIN LEVEL 1-3 OR FEVER Last administered on 05/09/17 03:12; Admin Dose 650 MG; Start 05/05/17 at 17:30 Acetaminophen/ Hydrocodone Bitart ([place] (5/325)) 1 tab Q6H PRN PO MODERATE PAIN LEVEL 4-6; Start 05/05/17 at 17:30 Morphine Sulfate (morphine) 2 mg Q4H PRN IV SEVERE PAIN LEVEL 7-10; Start 05/05 at 17:30 Magnesium Hydroxide (Milk Of Mag) 30 ml DAILY PRN PO CONSTIPATION; Start at 17:30 Sodium Biphosphate/ Sodium Phosphate (Fleet Enema) 133 ml DAILY PRN [place] CONSTIPATION; Start 05/05/17 at 17:30 Pantoprazole (Protonix Tab) 40 mg DAILY@06 PO Last administered on 05/14/17 05: 13; Admin Dose 40 MG; Start 05/06/17 at 06:00 Lorazepam (Ativan) 0.5 mg Q6H PRN PO ANXIETY; Start 05/05/17 at 17:30 Hydralazine HCl (Apresoline) 10 mg Q6H PRN IV ELEVATED BLOOD PRESSURE; Start at 17:30 Nitroglycerin (Nitroglycerin (Sl Tab) 0.4 Mg) 1 tab Q5M PRN SL ANGINA; Start at 17:30 Cholecalciferol (Vitamin D) 400 units DAILY PO Last administered on 05/14/17 08 :14; Admin Dose 400 UNITS; Start 05/06/17 at 09:00 Vitamin E (Vitamin E) 400 units DAILY PO Last administered on 05/14/17 08:14; Admin Dose 400 UNITS; Start 05/06/17 at 09:00 Docusate Sodium (Colace) 100 mg Q12 PO Last administered on 05/14/17 08:14; Admin Dose 100 MG; Start 05/06/17 at 21:00 Aspirin (Halfprin) 81 mg DAILY PO Last administered on 05/14/17 08:15; Admin Dose 81 MG; Start 05/07/17 at 09:00 Atorvastatin Calcium (Lipitor) 10 mg HS PO Last administered on 05/13/17 21:14 ; Admin Dose 10 MG; Start 05/06/17 at 21:00 Miscellaneous Information 1 ea NOTE XX ; Start 05/06/17 at 14:30 Glucose (Glutose) 15 gm Q15M PRN PO DECREASED GLUCOSE; Start 05/06/17 at 14:30 Glucose (Glutose) 22.5 gm Q15M PRN PO DECREASED GLUCOSE; Start 05/06/17 at 14: 30 Dextrose (D50w Syringe) 25 ml Q15M PRN IV DECREASED GLUCOSE; Start 05/06/17 at 14:30 Dextrose (D50w Syringe) 50 ml Q15M PRN IV DECREASED GLUCOSE; Start 05/06/17 at 14:30 Glucagon (Glucagen) 1 mg Q15M PRN IM DECREASED GLUCOSE; Start 05/06/17 at 14:30 Glucose (Glutose) 15 gm Q15M PRN BUCCAL DECREASED GLUCOSE; Start 05/06/17 at 14 :30 Diagnostic Test (Pha) (Accu-Chek) 1 ea 02 XX ; Start 05/07/17 at 02:00 Patient Own Medication 1 ea DAILY PO Last administered on 05/14/17 08:16; Admin Dose 1 EA; Start 05/08/17 at 12:00; Stop 05/22/17 at 09:01 Apixaban (Eliquis) 5 mg BID PO ; Start 05/17/17 at 09:00 Levofloxacin (Levaquin) 750 mg DAILY@06 NGT Last administered on 05/14/17 05:14 ; Admin Dose 750 MG; Start 05/12/17 at 06:00; Stop 05/17/17 at 05:59 Apixaban (Eliquis) 10 mg BID PO Last administered on 05/14/17 08:14; Admin Dose 10 MG; Start 05/11/17 at 17:23; Stop 05/17/17 at 08:59 DAVONTE THOMPSON May 14, 2017 12:49
--- NOTE | 2017-05-14 12:51 | CONS ---
Date/Time of Note Date/Time of Note DATE: 05/14/17 TIME: 12:48 Consult Date/Type/Reason Admit Date/Time May 06, 2017 at 14:11 Initial Consult Date 05/08/17 Type of Consultation: Pulmonary Ordering Provider: MANJINDER HOWELL Subjective Patient appears comfortable no new events Objective Vital Signs Date Time Temp Pulse Resp B/P Pulse Ox O2 Delivery O2 Flow Rate FiO2 05/14/17 12:10 96 05/14/17 11:21 98.1 20 116/74 95 05/14/17 08:31 Nasal Cannula 2.0 05/13/17 05:00 30 Intake and Output 05/13/17 05/13/17 05/14/17 15:00 23:00 07:00 Intake Total 800 ml 800 ml 800 ml Balance 800 ml 800 ml 800 ml Exam GENERAL: VITAL SIGNS: per chart NECK: Supple. No JVD or lymphadenopathy. CARDIAC EXAM: S1, S2. No added sounds or murmurs. CHEST: clear bilaterally, No added sounds, rales or wheezes ABDOMEN: Soft, nontender. No guarding or rebound. EXTREMITIES: No cyanosis, clubbing or edema. NEUROLOGIC: Generalized weakness. No focal deficits. Results/Medications Result Diagram: 05/13/17 0825 05/13/17 0825 Results 24 hrs Laboratory Tests Test 05/13/17 17:10 05/13/17 21:12 05/14/17 07:46 05/14/17 11:44 Bedside Glucose 121 131 118 146 Medications Current Medications Ondansetron HCl (Zofran Inj) 4 mg Q6H PRN IV NAUSEA AND/OR VOMITING; Start at 17:30 Acetaminophen (Tylenol Tab) 650 mg Q6H PRN PO PAIN LEVEL 1-3 OR FEVER Last administered on 05/09/17t 03:12; Admin Dose 650 MG; Start 05/05/17 at 17:30 Acetaminophen/ Hydrocodone Bitart ([place] (5/325)) 1 tab Q6H PRN PO MODERATE PAIN LEVEL 4-6; Start 05/05/17 at 17:30 Morphine Sulfate (morphine) 2 mg Q4H PRN IV SEVERE PAIN LEVEL 7-10; Start 05/05 at 17:30 Magnesium Hydroxide (Milk Of Mag) 30 ml DAILY PRN PO CONSTIPATION; Start at 17:30 Sodium Biphosphate/ Sodium Phosphate (Fleet Enema) 133 ml DAILY PRN [place] CONSTIPATION; Start 05/05/17 at 17:30 Pantoprazole (Protonix Tab) 40 mg DAILY@06 PO Last administered on 05/14/17 05: 13; Admin Dose 40 MG; Start 05/06/17 at 06:00 Lorazepam (Ativan) 0.5 mg Q6H PRN PO ANXIETY; Start 05/05/17 at 17:30 Hydralazine HCl (Apresoline) 10 mg Q6H PRN IV ELEVATED BLOOD PRESSURE; Start at 17:30 Nitroglycerin (Nitroglycerin (Sl Tab) 0.4 Mg) 1 tab Q5M PRN SL ANGINA; Start at 17:30 Cholecalciferol (Vitamin D) 400 units DAILY PO Last administered on 05/14/17 08 :14; Admin Dose 400 UNITS; Start 05/06/17 at 09:00 Vitamin E (Vitamin E) 400 units DAILY PO Last administered on 05/14/17 08:14; Admin Dose 400 UNITS; Start 05/06/17 at 09:00 Docusate Sodium (Colace) 100 mg Q12 PO Last administered on 05/14/17 08:14; Admin Dose 100 MG; Start 05/06/17 at 21:00 Aspirin (Halfprin) 81 mg DAILY PO Last administered on 05/14/17 08:15; Admin Dose 81 MG; Start 05/07/17 at 09:00 Atorvastatin Calcium (Lipitor) 10 mg HS PO Last administered on 05/13/17 21:14 ; Admin Dose 10 MG; Start 05/06/17 at 21:00 Miscellaneous Information 1 ea NOTE XX ; Start 05/06/17 at 14:30 Glucose (Glutose) 15 gm Q15M PRN PO DECREASED GLUCOSE; Start 05/06/17 at 14:30 Glucose (Glutose) 22.5 gm Q15M PRN PO DECREASED GLUCOSE; Start 05/06/17 at 14: 30 Dextrose (D50w Syringe) 25 ml Q15M PRN IV DECREASED GLUCOSE; Start 05/06/17 at 14:30 Dextrose (D50w Syringe) 50 ml Q15M PRN IV DECREASED GLUCOSE; Start 05/06/17 at 14:30 Glucagon (Glucagen) 1 mg Q15M PRN IM DECREASED GLUCOSE; Start 05/06/17 at 14:30 Glucose (Glutose) 15 gm Q15M PRN BUCCAL DECREASED GLUCOSE; Start 05/06/17 at 14 :30 Diagnostic Test (Pha) (Accu-Chek) 1 ea 02 XX ; Start 05/07/17 at 02:00 Patient Own Medication 1 ea DAILY PO Last administered on 05/14/17 08:16; Admin Dose 1 EA; Start 05/08/17 at 12:00; Stop 05/22/17 at 09:01 Apixaban (Eliquis) 5 mg BID PO ; Start 05/17/17 at 09:00 Levofloxacin (Levaquin) 750 mg DAILY@06 NGT Last administered on 05/14/17 05:14 ; Admin Dose 750 MG; Start 05/12/17 at 06:00; Stop 05/17/17 at 05:59 Apixaban (Eliquis) 10 mg BID PO Last administered on 05/14/17 08:14; Admin Dose 10 MG; Start 05/11/17 at 17:23; Stop 05/17/17 at 08:59 Assessment/Plan Chief Complaint/Hosp Course IMP: 1. Acute PE--unprovoked 2. RML mass RECS: 1. Continues anticoagulation with Eliquis 2. Repeat CT scan, PET scan in 2 weeks time 3. Discharge planning on supplemental O2, ABG in a.m. on room air Follow-up with me in the office. Problems: KEVIN HENSLEY MD, [facility] May 14, 2017 12:50
[2017-05-14] MEDS: ATORVASTATIN 10 MG TAB PO SCH (20:43)
[2017-05-15] VITALS (12 sets, daily range): BP systolic 112–145; BP diastolic 58–75; PULSE 81–93; RESP 15–19
--- NOTE | 2017-05-15 00:27 | CONS ---
Date/Time of Note Date/Time of Note DATE: 05/14/17 TIME: 19:13 vk le Assessment/Plan Assessment/Plan Chief Complaint/Hosp Course Extensive bilateral acute pulmonary emboli. No saddle embolus. Lovenox 1 mg/kg subQ b.i.d 3.8 x 2.4 cm mass right middle lobe highly suspicious for primary lung cancer. No evidence of metastatic disease in the chest complete staging with CT ABD PULM F-UP- REPEAT CT CHEST IN 2 WE , AFTER CT - WILL DECIDE RE BX Shortness of breath. secondary to pulmonary embolism. 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 OBTAIN AND REVIEW OLD RECORD Lactic acidosis, unclear source. Signs of possible sepsis. Continue broad-spectrum antibiotics Questionable history of thyroid issues. Check thyroid panel, continue levothyroxine. Gastrointestinal prophylaxis. PPI. Deep venous thrombosis prophylaxis. Lovenox INCOMPLETE RECORD Problems: Consultation Date/Type/Reason Admit Date/Time May 06, 2017 at 14:11 Initial Consult Date 05/05/17 Type of Consultation: [facility] Referring Provider: MANJINDER HOWELL 24 HR Interval Summary Free Text/Dictation ALL NOTED Exam/Review of Systems Vital Signs Vitals Vital Signs Date Time Temp Pulse Resp B/P Pulse Ox O2 Delivery O2 Flow Rate FiO2 05/14/17 20:08 93 05/14/17 19:48 Nasal Cannula 2.0 05/14/17 19:39 98.2 15 129/73 92 05/13/17 05:00 30 Intake and Output 05/14/17 05/14/17 05/15/17 14:59 22:59 06:59 Intake Total 1000 ml Balance 1000 ml Exam GENERAL: The patient is lying in bed, answering questions appropriately. No acute distress. HEENT: Pupils equal, round, react to light. Extraocular muscles intact. NECK: Slightly enlarged. Surgical scar noted on the right side of the neck, otherwise supple. LUNGS: Clear to auscultation bilaterally. No wheezes. CARDIOVASCULAR: Tachycardic heart rate but regular. No rubs or gallops. ABDOMEN: Soft, nontender, nondistended. Normal bowel sounds. No rebound or guarding. MUSCULOSKELETAL: No lower extremity edema bilaterally. NEUROLOGIC: No focal deficits. Results Result Diagram: 7/3/17 0825 7/3/17 0825 Results 24 hrs Laboratory Tests Test 05/14/17 07:46 05/14/17 11:44 05/14/17 17:15 05/14/17 20:24 Bedside Glucose 118 146 133 142 Medications Medications Current Medications Ondansetron HCl (Zofran Inj) 4 mg Q6H PRN IV NAUSEA AND/OR VOMITING; Start at 17:30 Acetaminophen (Tylenol Tab) 650 mg Q6H PRN PO PAIN LEVEL 1-3 OR FEVER Last administered on 05/09/17 03:12; Admin Dose 650 MG; Start 05/05/17 at 17:30 Acetaminophen/ Hydrocodone Bitart ([place] (5/325)) 1 tab Q6H PRN PO MODERATE PAIN LEVEL 4-6; Start 05/05/17 at 17:30 Morphine Sulfate (morphine) 2 mg Q4H PRN IV SEVERE PAIN LEVEL 7-10; Start 05/05 at 17:30 Magnesium Hydroxide (Milk Of Mag) 30 ml DAILY PRN PO CONSTIPATION; Start at 17:30 Sodium Biphosphate/ Sodium Phosphate (Fleet Enema) 133 ml DAILY PRN [place] CONSTIPATION; Start 05/05/17 at 17:30 Pantoprazole (Protonix Tab) 40 mg DAILY@06 PO Last administered on 05/14/17 05: 13; Admin Dose 40 MG; Start 05/06/17 at 06:00 Lorazepam (Ativan) 0.5 mg Q6H PRN PO ANXIETY; Start 05/05/17 at 17:30 Hydralazine HCl (Apresoline) 10 mg Q6H PRN IV ELEVATED BLOOD PRESSURE; Start at 17:30 Nitroglycerin (Nitroglycerin (Sl Tab) 0.4 Mg) 1 tab Q5M PRN SL ANGINA; Start at 17:30 Cholecalciferol (Vitamin D) 400 units DAILY PO Last administered on 05/14/17 08 :14; Admin Dose 400 UNITS; Start 05/06/17 at 09:00 Vitamin E (Vitamin E) 400 units DAILY PO Last administered on 05/14/17 08:14; Admin Dose 400 UNITS; Start 05/06/17 at 09:00 Docusate Sodium (Colace) 100 mg Q12 PO Last administered on 05/14/17 20:43; Admin Dose 100 MG; Start 05/06/17 at 21:00 Aspirin (Halfprin) 81 mg DAILY PO Last administered on 05/14/17 08:15; Admin Dose 81 MG; Start 05/07/17 at 09:00 Atorvastatin Calcium (Lipitor) 10 mg HS PO Last administered on 05/14/17 20:43 ; Admin Dose 10 MG; Start 05/06/17 at 21:00 Miscellaneous Information 1 ea NOTE XX ; Start 05/06/17 at 14:30 Glucose (Glutose) 15 gm Q15M PRN PO DECREASED GLUCOSE; Start 05/06/17 at 14:30 Glucose (Glutose) 22.5 gm Q15M PRN PO DECREASED GLUCOSE; Start 05/06/17 at 14: 30 Dextrose (D50w Syringe) 25 ml Q15M PRN IV DECREASED GLUCOSE; Start 05/06/17 at 14:30 Dextrose (D50w Syringe) 50 ml Q15M PRN IV DECREASED GLUCOSE; Start 05/06/17 at 14:30 Glucagon (Glucagen) 1 mg Q15M PRN IM DECREASED GLUCOSE; Start 05/06/17 at 14:30 Glucose (Glutose) 15 gm Q15M PRN BUCCAL DECREASED GLUCOSE; Start 05/06/17 at 14 :30 Diagnostic Test (Pha) (Accu-Chek) 1 ea 02 XX ; Start 05/07/17 at 02:00 Patient Own Medication 1 ea DAILY PO Last administered on 05/14/17 08:16; Admin Dose 1 EA; Start 05/08/17 at 12:00; Stop 05/22/17 at 09:01 Apixaban (Eliquis) 5 mg BID PO ; Start 05/17/17 at 09:00 Levofloxacin (Levaquin) 750 mg DAILY@06 NGT Last administered on 05/14/17 05:14 ; Admin Dose 750 MG; Start 05/12/17 at 06:00; Stop 05/17/17 at 05:59 Apixaban (Eliquis) 10 mg BID PO Last administered on 05/14/17 20:43; Admin Dose 10 MG; Start 05/11/17 at 17:23; Stop 05/17/17 at 08:59 ROSSANA ALARCON MD May 15, 2017 00:27
[2017-05-15] MEDS: ACCUCHECK AT 2AM (Patients on SS coverage) XX SCH (02:00)
[2017-05-15] MEDS: LEVOTHYROXINE 100 MCG TAB PO SCH (05:37)
[2017-05-15] MEDS: LEVOFLOXACIN 750 MG TABLET NGT SCH (05:37)
[2017-05-15] MEDS: PANTOPRAZOLE (EC) 40 MG TAB PO SCH (05:37)
[2017-05-15] MEDS: INSULIN ASPART [NOVOLOG] 3 ML PEN SC SCH ×4 (07:55→21:00)
[2017-05-15] MEDS: APIXABAN 5 MG TABLET PO SCH ×2 (08:14→21:16)
[2017-05-15] MEDS: VITAMIN E 400 UNITS CAP PO SCH (08:14)
[2017-05-15] MEDS: DOCUSATE SODIUM 100 MG CAP PO SCH ×2 (08:14→21:15)
[2017-05-15] MEDS: CHOLECALCIFEROL 400 UNITS TAB PO SCH (08:14)
[2017-05-15] MEDS: ASPIRIN (EC) 81 MG TAB PO SCH (08:15)
[2017-05-15] MEDS: LENALIDOMIDE 5 MG PO SCH (08:29)
--- NOTE | 2017-05-15 11:07 | CONS ---
Date/Time of Note Date/Time of Note DATE: 05/15/17 TIME: 11:06 Assessment/Plan Assessment/Plan Chief Complaint/Hosp Course Extensive bilateral acute pulmonary emboli. No saddle embolus. Lovenox 1 mg/kg subQ b.i.d 3.8 x 2.4 cm mass right middle lobe highly suspicious for primary lung cancer. No evidence of metastatic disease in the chest complete staging with CT ABD PULM F-UP- REPEAT CT CHEST IN 2 WE , AFTER CT - WILL DECIDE RE BX Shortness of breath. secondary to pulmonary embolism. 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 OBTAIN AND REVIEW OLD RECORD Lactic acidosis, unclear source. Signs of possible sepsis. Continue broad-spectrum antibiotics Questionable history of thyroid issues. Check thyroid panel, continue levothyroxine. Gastrointestinal prophylaxis. PPI. Deep venous thrombosis prophylaxis. Lovenox INCOMPLETE RECORD Problems: Consultation Date/Type/Reason Admit Date/Time May 06, 2017 at 14:11 Initial Consult Date 05/05/17 Type of Consultation: [facility] Referring Provider: MANJINDER HOWELL 24 HR Interval Summary Free Text/Dictation ALL NOTED Exam/Review of Systems Vital Signs Vitals Vital Signs Date Time Temp Pulse Resp B/P Pulse Ox O2 Delivery O2 Flow Rate FiO2 05/15/17 08:28 2.0 05/15/17 08:15 Nasal Cannula 05/15/17 08:03 83 05/15/17 07:24 98.6 18 145/60 92 05/13/17 05:00 30 Intake and Output 05/14/17 05/14/17 05/15/17 14:59 22:59 06:59 Intake Total 1000 ml 550 ml Balance 1000 ml 550 ml Exam GENERAL: The patient is lying in bed, answering questions appropriately. No acute distress. HEENT: Pupils equal, round, react to light. Extraocular muscles intact. NECK: Slightly enlarged. Surgical scar noted on the right side of the neck, otherwise supple. LUNGS: Clear to auscultation bilaterally. No wheezes. CARDIOVASCULAR: Tachycardic heart rate but regular. No rubs or gallops. ABDOMEN: Soft, nontender, nondistended. Normal bowel sounds. No rebound or guarding. MUSCULOSKELETAL: No lower extremity edema bilaterally. NEUROLOGIC: No focal deficits. Results Result Diagram: 05/13/17 0825 05/13/17 0825 Results 24 hrs Laboratory Tests Test 05/14/17 11:44 05/14/17 17:15 05/14/17 20:24 05/15/17 08:12 Bedside Glucose 146 133 142 116 Medications Medications Current Medications Ondansetron HCl (Zofran Inj) 4 mg Q6H PRN IV NAUSEA AND/OR VOMITING; Start at 17:30 Acetaminophen (Tylenol Tab) 650 mg Q6H PRN PO PAIN LEVEL 1-3 OR FEVER Last administered on 05/09/17 03:12; Admin Dose 650 MG; Start 05/05/17 at 17:30 Acetaminophen/ Hydrocodone Bitart ([place] (5/325)) 1 tab Q6H PRN PO MODERATE PAIN LEVEL 4-6; Start 05/05/17 at 17:30 Morphine Sulfate (morphine) 2 mg Q4H PRN IV SEVERE PAIN LEVEL 7-10; Start 05/05 at 17:30 Magnesium Hydroxide (Milk Of Mag) 30 ml DAILY PRN PO CONSTIPATION; Start at 17:30 Sodium Biphosphate/ Sodium Phosphate (Fleet Enema) 133 ml DAILY PRN [place] CONSTIPATION; Start 05/05/17 at 17:30 Pantoprazole (Protonix Tab) 40 mg DAILY@06 PO Last administered on 05/15/17 05: 37; Admin Dose 40 MG; Start 05/06/17 at 06:00 Lorazepam (Ativan) 0.5 mg Q6H PRN PO ANXIETY; Start 05/05/17 at 17:30 Hydralazine HCl (Apresoline) 10 mg Q6H PRN IV ELEVATED BLOOD PRESSURE; Start at 17:30 Nitroglycerin (Nitroglycerin (Sl Tab) 0.4 Mg) 1 tab Q5M PRN SL ANGINA; Start at 17:30 Cholecalciferol (Vitamin D) 400 units DAILY PO Last administered on 05/15/17 08 :14; Admin Dose 400 UNITS; Start 05/06/17 at 09:00 Vitamin E (Vitamin E) 400 units DAILY PO Last administered on 05/15/17 08:14; Admin Dose 400 UNITS; Start 05/06/17 at 09:00 Docusate Sodium (Colace) 100 mg Q12 PO Last administered on 05/15/17 08:14; Admin Dose 100 MG; Start 05/06/17 at 21:00 Aspirin (Halfprin) 81 mg DAILY PO Last administered on 05/15/17 08:15; Admin Dose 81 MG; Start 05/07/17 at 09:00 Atorvastatin Calcium (Lipitor) 10 mg HS PO Last administered on 05/14/17 20:43 ; Admin Dose 10 MG; Start 05/06/17 at 21:00 Miscellaneous Information 1 ea NOTE XX ; Start 05/06/17 at 14:30 Glucose (Glutose) 15 gm Q15M PRN PO DECREASED GLUCOSE; Start 05/06/17 at 14:30 Glucose (Glutose) 22.5 gm Q15M PRN PO DECREASED GLUCOSE; Start 05/06/17 at 14: 30 Dextrose (D50w Syringe) 25 ml Q15M PRN IV DECREASED GLUCOSE; Start 05/06/17 at 14:30 Dextrose (D50w Syringe) 50 ml Q15M PRN IV DECREASED GLUCOSE; Start 05/06/17 at 14:30 Glucagon (Glucagen) 1 mg Q15M PRN IM DECREASED GLUCOSE; Start 05/06/17 at 14:30 Glucose (Glutose) 15 gm Q15M PRN BUCCAL DECREASED GLUCOSE; Start 05/06/17 at 14 :30 Diagnostic Test (Pha) (Accu-Chek) 1 ea 02 XX ; Start 05/07/17 at 02:00 Patient Own Medication 1 ea DAILY PO Last administered on 05/15/17 08:29; Admin Dose 1 EA; Start 05/08/17 at 12:00; Stop 05/22/17 at 09:01 Apixaban (Eliquis) 5 mg BID PO ; Start 05/17/17 at 09:00 Levofloxacin (Levaquin) 750 mg DAILY@06 NGT Last administered on 05/15/17 05:37 ; Admin Dose 750 MG; Start 05/12/17 at 06:00; Stop 05/17/17 at 05:59 Apixaban (Eliquis) 10 mg BID PO Last administered on 05/15/17 08:14; Admin Dose 10 MG; Start 05/11/17 at 17:23; Stop 05/17/17 at 08:59 ROSSANA ALARCON MD May 15, 2017 11:07
[2017-05-15 13:55] LABS: AADO2 Arterial 36.5 mmHg (7.0-24.0); Arterial Base Excess 1.9 mmol/L (-3.0-3); Arterial COHb 0.6 % (0.0-3.0); Arterial Fraction of Oxyhgb 92.1 % (93.0-99.0); Arterial HCO3 26.1 mmol/L (22.0-26.0); Arterial MetHb 0.3 % (0.0-1.5); Arterial Total Hemglobin 15.1 g/dl (12.0-18.0); MODE ROOM AIR
--- NOTE | 2017-05-15 14:50 | PN ---
Date/Time of Note Date/Time of Note DATE: 05/15/17 TIME: 14:50 Assessment/Plan VTE Prophylaxis VTE Prophylaxis Intervention: other Lines/Catheters IV Catheter Type (from [facility]): [place] [facility] Urinary Cath still in place: No Assessment/Plan Chief Complaint/Hosp Course 1. Acute shortness of breath secondary to #2 : resolved / stable on room air 2. Extensive bilateral acute pulmonary emboli : s/p lovenox, now on Eliquis 3. Right middle lobe mass suspicious for primary lung cancer without evidence of metastatic disease: Needs repeat CT by May 19 to reassess 4. 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 Hypothyroidism: still with suboptimal control. : dosage gently increased to 100mcg, repeat TSH in a few weeks 6. Lactic acidosis likely secondary to respiratory insufficiency: resolved 7. Prediabetes with hemoglobin A1c of 6.2 8. Dyslipidemia 9. Obesity r/o OHS versus SRAVANTHI: needs outpt sleep study 10. Chronic cognitive deficits, ?Early dementia vs Chronic MR 11. Mild Pulmonary HTN on Echo ?/ #2 PLAN: * Patient has a new lung mass that needs to be biopsied to determine if it is metastasis or a new primary lung cancer. Interventional radiology and Dr. Gomez had recommended treating the pulmonary embolus for at least 2 weeks then repeating the CT scan and then doing a biopsy if it is still indicated. * [facility] and then have her follow-up as outpatient with oncology for repeat CT scan and further interventions; however the prison will not [facility] back with oxygen therapy and so at this time are working on alternative placement even as we try to wean her off oxygen. * If we cannot find placement before the end of next week, patient might as well stay and repeat her CAT scan and continue interventions as indicated. * In the interim, continue supportive care, anticoagulation , mild diuresis, O2 support and CPAP at bedtime. Prophylaxis: Eliquis Problems: Subjective 24 Hr Interval Summary Respiratory: shortness of breath Exam/Review of Systems Vital Signs Vitals Vital Signs Date Time Temp Pulse Resp B/P Pulse Ox O2 Delivery O2 Flow Rate FiO2 05/15/17 12:10 87 05/15/17 11:23 98.2 18 117/62 94 05/15/17 08:28 2.0 05/15/17 08:15 Nasal Cannula 05/13/17 05:00 30 Intake and Output 05/14/17 05/14/17 05/15/17 15:00 23:00 07:00 Intake Total 1000 ml 550 ml Balance 1000 ml 550 ml Exam Constitutional: alert Respiratory: clear to auscultation Cardiovascular: regular rate and rhythm Gastrointestinal: soft, No distended Musculoskeletal: nl extremities to inspection Results Result Diagram: 05/13/17 0825 05/13/17 0825 Results 24 hrs Laboratory Tests Test 05/14/17 17:15 05/14/17 20:24 05/15/17 08:12 05/15/17 09:00 Bedside Glucose 133 142 116 Blood Gas Specimen Source Blood arterial Arterial Blood Date Drawn 05/15/2017 7:59:00 AM Arterial Blood pH (Temp corrected) 7.438 Arterial Blood pCO2 (Temp correct) 39.5 Arterial Blood pO2 (Temp corrected) 65.9 L Arterial Blood HCO3 26.1 H Arterial Blood Base Excess 1.9 Arterial Blood Oxygen Saturation 92.9 L Simone Test N/A Arterial Blood Gas Puncture Site LB Arterial Blood Carboxyhemoglobin 0.6 Arterial Blood Methemoglobin 0.3 Blood Gas A-a O2 Differential 36.5 H Oxyhemoglobin Percent 92.1 L Total Hemoglobin 15.1 Blood Gas Temperature 37.0 Blood Gas Modality ROOM AIR FiO2 21.0 Blood Gas Notified Whom TM Blood Gas Notified Time 05/15/2017 8:27:00 AM Test 05/15/17 12:18 Bedside Glucose 110 Medications Medications Current Medications Ondansetron HCl (Zofran Inj) 4 mg Q6H PRN IV NAUSEA AND/OR VOMITING; Start at 17:30 Acetaminophen (Tylenol Tab) 650 mg Q6H PRN PO PAIN LEVEL 1-3 OR FEVER Last administered on 05/09/17t 03:12; Admin Dose 650 MG; Start 05/05/17 at 17:30 Acetaminophen/ Hydrocodone Bitart ([place] (5/325)) 1 tab Q6H PRN PO MODERATE PAIN LEVEL 4-6; Start 05/05/17 at 17:30 Morphine Sulfate (morphine) 2 mg Q4H PRN IV SEVERE PAIN LEVEL 7-10; Start 05/05 at 17:30 Magnesium Hydroxide (Milk Of Mag) 30 ml DAILY PRN PO CONSTIPATION; Start at 17:30 Sodium Biphosphate/ Sodium Phosphate (Fleet Enema) 133 ml DAILY PRN [place] CONSTIPATION; Start 05/05/17 at 17:30 Pantoprazole (Protonix Tab) 40 mg DAILY@06 PO Last administered on 05/15/17 05: 37; Admin Dose 40 MG; Start 05/06/17 at 06:00 Lorazepam (Ativan) 0.5 mg Q6H PRN PO ANXIETY; Start 05/05/17 at 17:30 Hydralazine HCl (Apresoline) 10 mg Q6H PRN IV ELEVATED BLOOD PRESSURE; Start at 17:30 Nitroglycerin (Nitroglycerin (Sl Tab) 0.4 Mg) 1 tab Q5M PRN SL ANGINA; Start at 17:30 Cholecalciferol (Vitamin D) 400 units DAILY PO Last administered on 05/15/17 08 :14; Admin Dose 400 UNITS; Start 05/06/17 at 09:00 Vitamin E (Vitamin E) 400 units DAILY PO Last administered on 05/15/17 08:14; Admin Dose 400 UNITS; Start 05/06/17 at 09:00 Docusate Sodium (Colace) 100 mg Q12 PO Last administered on 05/15/17 08:14; Admin Dose 100 MG; Start 05/06/17 at 21:00 Aspirin (Halfprin) 81 mg DAILY PO Last administered on 05/15/17 08:15; Admin Dose 81 MG; Start 05/07/17 at 09:00 Atorvastatin Calcium (Lipitor) 10 mg HS PO Last administered on 05/14/17 20:43 ; Admin Dose 10 MG; Start 05/06/17 at 21:00 Miscellaneous Information 1 ea NOTE XX ; Start 05/06/17 at 14:30 Glucose (Glutose) 15 gm Q15M PRN PO DECREASED GLUCOSE; Start 05/06/17 at 14:30 Glucose (Glutose) 22.5 gm Q15M PRN PO DECREASED GLUCOSE; Start 05/06/17 at 14: 30 Dextrose (D50w Syringe) 25 ml Q15M PRN IV DECREASED GLUCOSE; Start 05/06/17 at 14:30 Dextrose (D50w Syringe) 50 ml Q15M PRN IV DECREASED GLUCOSE; Start 05/06/17 at 14:30 Glucagon (Glucagen) 1 mg Q15M PRN IM DECREASED GLUCOSE; Start 05/06/17 at 14:30 Glucose (Glutose) 15 gm Q15M PRN BUCCAL DECREASED GLUCOSE; Start 05/06/17 at 14 :30 Diagnostic Test (Pha) (Accu-Chek) 1 ea 02 XX ; Start 05/07/17 at 02:00 Patient Own Medication 1 ea DAILY PO Last administered on 05/15/17 08:29; Admin Dose 1 EA; Start 05/08/17 at 12:00; Stop 05/22/17 at 09:01 Apixaban (Eliquis) 5 mg BID PO ; Start 05/17/17 at 09:00 Levofloxacin (Levaquin) 750 mg DAILY@06 NGT Last administered on 05/15/17 05:37 ; Admin Dose 750 MG; Start 05/12/17 at 06:00; Stop 05/17/17 at 05:59 Apixaban (Eliquis) 10 mg BID PO Last administered on 05/15/17 08:14; Admin Dose 10 MG; Start 05/11/17 at 17:23; Stop 05/17/17 at 08:59 DAVONTE THOMPSON May 15, 2017 14:50
--- NOTE | 2017-05-15 16:15 | CONS ---
Date/Time of Note Date/Time of Note DATE: 05/15/17 TIME: 16:12 Consult Date/Type/Reason Admit Date/Time May 06, 2017 at 14:11 Initial Consult Date 05/08/17 Type of Consultation: Pulmonary Ordering Provider: MANJINDER HOWELL Subjective Patient remains stable no new events. Adequate oxygenation on room air. Objective Vital Signs Date Time Temp Pulse Resp B/P Pulse Ox O2 Delivery O2 Flow Rate FiO2 05/15/17 16:06 88 05/15/17 15:51 98.2 19 119/68 96 05/15/17 08:28 2.0 05/15/17 08:15 Nasal Cannula 05/13/17 05:00 30 Intake and Output 05/14/17 05/14/17 05/15/17 15:00 23:00 07:00 Intake Total 1000 ml 550 ml Balance 1000 ml 550 ml Exam GENERAL: Older than age appearing lady comfortable at rest VITAL SIGNS: per chart NECK: Supple. No JVD or lymphadenopathy. CARDIAC EXAM: S1, S2. No added sounds or murmurs. CHEST: clear bilaterally, No added sounds, rales or wheezes ABDOMEN: Soft, nontender. No guarding or rebound. EXTREMITIES: No cyanosis, clubbing or edema. NEUROLOGIC: Generalized weakness. No focal deficits. Results/Medications Result Diagram: 05/13/1782405/13/17824 Results 24 hrs Laboratory Tests Test 05/14/17 17:15 05/14/17 20:24 05/15/17 08:12 05/15/17 09:00 Bedside Glucose 133 142 116 Blood Gas Specimen Source Blood arterial Arterial Blood Date Drawn 05/15/2017 7:59:00 AM Arterial Blood pH (Temp corrected) 7.438 Arterial Blood pCO2 (Temp correct) 39.5 Arterial Blood pO2 (Temp corrected) 65.9 L Arterial Blood HCO3 26.1 H Arterial Blood Base Excess 1.9 Arterial Blood Oxygen Saturation 92.9 L Simone Test N/A Arterial Blood Gas Puncture Site LB Arterial Blood Carboxyhemoglobin 0.6 Arterial Blood Methemoglobin 0.3 Blood Gas A-a O2 Differential 36.5 H Oxyhemoglobin Percent 92.1 L Total Hemoglobin 15.1 Blood Gas Temperature 37.0 Blood Gas Modality ROOM AIR FiO2 21.0 Blood Gas Notified Whom TM Blood Gas Notified Time 05/15/2017 8:27:00 AM Test 05/15/17 12:18 Bedside Glucose 110 Medications Current Medications Ondansetron HCl (Zofran Inj) 4 mg Q6H PRN IV NAUSEA AND/OR VOMITING; Start at 17:30 Acetaminophen (Tylenol Tab) 650 mg Q6H PRN PO PAIN LEVEL 1-3 OR FEVER Last administered on 05/09/17 03:12; Admin Dose 650 MG; Start 05/05/17 at 17:30 Acetaminophen/ Hydrocodone Bitart ([place] (5/325)) 1 tab Q6H PRN PO MODERATE PAIN LEVEL 4-6; Start 05/05/17 at 17:30 Morphine Sulfate (morphine) 2 mg Q4H PRN IV SEVERE PAIN LEVEL 7-10; Start 05/05 at 17:30 Magnesium Hydroxide (Milk Of Mag) 30 ml DAILY PRN PO CONSTIPATION; Start at 17:30 Sodium Biphosphate/ Sodium Phosphate (Fleet Enema) 133 ml DAILY PRN [place] CONSTIPATION; Start 05/05/17 at 17:30 Pantoprazole (Protonix Tab) 40 mg DAILY@06 PO Last administered on 05/15/17 05: 37; Admin Dose 40 MG; Start 05/06/17 at 06:00 Lorazepam (Ativan) 0.5 mg Q6H PRN PO ANXIETY; Start 05/05/17 at 17:30 Hydralazine HCl (Apresoline) 10 mg Q6H PRN IV ELEVATED BLOOD PRESSURE; Start at 17:30 Nitroglycerin (Nitroglycerin (Sl Tab) 0.4 Mg) 1 tab Q5M PRN SL ANGINA; Start at 17:30 Cholecalciferol (Vitamin D) 400 units DAILY PO Last administered on 05/15/17 08 :14; Admin Dose 400 UNITS; Start 05/06/17 at 09:00 Vitamin E (Vitamin E) 400 units DAILY PO Last administered on 05/15/17 08:14; Admin Dose 400 UNITS; Start 05/06/17 at 09:00 Docusate Sodium (Colace) 100 mg Q12 PO Last administered on 05/15/17 08:14; Admin Dose 100 MG; Start 05/06/17 at 21:00 Aspirin (Halfprin) 81 mg DAILY PO Last administered on 05/15/17 08:15; Admin Dose 81 MG; Start 05/07/17 at 09:00 Atorvastatin Calcium (Lipitor) 10 mg HS PO Last administered on 05/14/17 20:43 ; Admin Dose 10 MG; Start 05/06/17 at 21:00 Miscellaneous Information 1 ea NOTE XX ; Start 05/06/17 at 14:30 Glucose (Glutose) 15 gm Q15M PRN PO DECREASED GLUCOSE; Start 05/06/17 at 14:30 Glucose (Glutose) 22.5 gm Q15M PRN PO DECREASED GLUCOSE; Start 05/06/17 at 14: 30 Dextrose (D50w Syringe) 25 ml Q15M PRN IV DECREASED GLUCOSE; Start 05/06/17 at 14:30 Dextrose (D50w Syringe) 50 ml Q15M PRN IV DECREASED GLUCOSE; Start 05/06/17 at 14:30 Glucagon (Glucagen) 1 mg Q15M PRN IM DECREASED GLUCOSE; Start 05/06/17 at 14:30 Glucose (Glutose) 15 gm Q15M PRN BUCCAL DECREASED GLUCOSE; Start 05/06/17 at 14 :30 Diagnostic Test (Pha) (Accu-Chek) 1 ea 02 XX ; Start 05/07/17 at 02:00 Patient Own Medication 1 ea DAILY PO Last administered on 05/15/17 08:29; Admin Dose 1 EA; Start 05/08/17 at 12:00; Stop 05/22/17 at 09:01 Apixaban (Eliquis) 5 mg BID PO ; Start 05/17/17 at 09:00 Levofloxacin (Levaquin) 750 mg DAILY@06 NGT Last administered on 05/15/17 05:37 ; Admin Dose 750 MG; Start 05/12/17 at 06:00; Stop 05/17/17 at 05:59 Apixaban (Eliquis) 10 mg BID PO Last administered on 05/15/17 08:14; Admin Dose 10 MG; Start 05/11/17 at 17:23; Stop 05/17/17 at 08:59 Assessment/Plan Chief Complaint/Hosp Course IMP: 1. Acute PE--unprovoked 2. RML mass RECS: 1. Continues anticoagulation with Eliquis 2. Repeat CT scan, PET scan in 2 weeks time 3. Discharge back to [facility] Follow-up with me in the office. Problems: KEVIN HENSLEY MD, [facility] May 15, 2017 16:15
[2017-05-15] MEDS: ATORVASTATIN 10 MG TAB PO SCH (21:18)
[2017-05-16 00:39] VITALS: PULSE 77
[2017-05-16] MEDS: ACCUCHECK AT 2AM (Patients on SS coverage) XX SCH (02:00)
[2017-05-16 03:23] VITALS: PULSE 75
[2017-05-16] MEDS: LEVOFLOXACIN 750 MG TABLET NGT SCH (06:31)
[2017-05-16] MEDS: PANTOPRAZOLE (EC) 40 MG TAB PO SCH (06:31)
[2017-05-16] MEDS: LEVOTHYROXINE 100 MCG TAB PO SCH (06:31)
[2017-05-16 07:40] VITALS: BP 110/65; RESP 18
[2017-05-16] MEDS: INSULIN ASPART [NOVOLOG] 3 ML PEN SC SCH ×2 (08:15→12:12)
[2017-05-16] MEDS: CHOLECALCIFEROL 400 UNITS TAB PO SCH (08:59)
[2017-05-16] MEDS: APIXABAN 5 MG TABLET PO SCH (08:59)
[2017-05-16] MEDS: ASPIRIN (EC) 81 MG TAB PO SCH (08:59)
[2017-05-16] MEDS: VITAMIN E 400 UNITS CAP PO SCH (08:59)
[2017-05-16] MEDS: DOCUSATE SODIUM 100 MG CAP PO SCH (09:00)
[2017-05-16] MEDS: LENALIDOMIDE 5 MG PO SCH (09:27)
--- NOTE | 2017-05-16 12:38 | CONS ---
Date/Time of Note Date/Time of Note DATE: 05/16/17 TIME: 12:37 Consult Date/Type/Reason Admit Date/Time May 06, 2017 at 14:11 Initial Consult Date 05/08/17 Type of Consultation: Pulmonary Ordering Provider: MANJINDER HOWELL Subjective Patient comfortable this morning says she has less shortness of breath Objective Vital Signs Date Time Temp Pulse Resp B/P Pulse Ox O2 Delivery O2 Flow Rate FiO2 05/16/17 08:00 Nasal Cannula 2.0 05/16/17 07:40 98.1 76 18 110/65 93 05/16/17 03:23 30 Intake and Output 05/15/17 05/15/17 05/16/17 15:00 23:00 07:00 Intake Total 800 ml Balance 800 ml Exam GENERAL: Older than age appearing lady comfortable at rest VITAL SIGNS: per chart NECK: Supple. No JVD or lymphadenopathy. CARDIAC EXAM: S1, S2. No added sounds or murmurs. CHEST: clear bilaterally, No added sounds, rales or wheezes ABDOMEN: Soft, nontender. No guarding or rebound. EXTREMITIES: No cyanosis, clubbing or edema. NEUROLOGIC: Generalized weakness. No focal deficits. Results/Medications Result Diagram: 05/13/1782405/13/17 0825 Results 24 hrs Laboratory Tests Test 05/15/17 17:34 05/15/17 21:11 05/16/17 08:10 05/16/17 12:03 Bedside Glucose 111 127 108 106 Medications Current Medications Ondansetron HCl (Zofran Inj) 4 mg Q6H PRN IV NAUSEA AND/OR VOMITING; Start at 17:30 Acetaminophen (Tylenol Tab) 650 mg Q6H PRN PO PAIN LEVEL 1-3 OR FEVER Last administered on 05/09/17t 03:12; Admin Dose 650 MG; Start 05/05/17 at 17:30 Acetaminophen/ Hydrocodone Bitart ([place] (5/325)) 1 tab Q6H PRN PO MODERATE PAIN LEVEL 4-6; Start 05/05/17 at 17:30 Morphine Sulfate (morphine) 2 mg Q4H PRN IV SEVERE PAIN LEVEL 7-10; Start 05/05 at 17:30 Magnesium Hydroxide (Milk Of Mag) 30 ml DAILY PRN PO CONSTIPATION; Start at 17:30 Sodium Biphosphate/ Sodium Phosphate (Fleet Enema) 133 ml DAILY PRN [place] CONSTIPATION; Start 05/05/17 at 17:30 Pantoprazole (Protonix Tab) 40 mg DAILY@06 PO Last administered on 05/16/17 06: 31; Admin Dose 40 MG; Start 05/06/17 at 06:00 Lorazepam (Ativan) 0.5 mg Q6H PRN PO ANXIETY; Start 05/05/17 at 17:30 Hydralazine HCl (Apresoline) 10 mg Q6H PRN IV ELEVATED BLOOD PRESSURE; Start at 17:30 Nitroglycerin (Nitroglycerin (Sl Tab) 0.4 Mg) 1 tab Q5M PRN SL ANGINA; Start at 17:30 Cholecalciferol (Vitamin D) 400 units DAILY PO Last administered on 05/16/17 08 :59; Admin Dose 400 UNITS; Start 05/06/17 at 09:00 Vitamin E (Vitamin E) 400 units DAILY PO Last administered on 05/16/17 08:59; Admin Dose 400 UNITS; Start 05/06/17 at 09:00 Docusate Sodium (Colace) 100 mg Q12 PO Last administered on 05/16/17 09:00; Admin Dose 100 MG; Start 05/06/17 at 21:00 Aspirin (Halfprin) 81 mg DAILY PO Last administered on 05/16/17 08:59; Admin Dose 81 MG; Start 05/07/17 at 09:00 Atorvastatin Calcium (Lipitor) 10 mg HS PO Last administered on 05/15/17 21:18 ; Admin Dose 10 MG; Start 05/06/17 at 21:00 Miscellaneous Information 1 ea NOTE XX ; Start 05/06/17 at 14:30 Glucose (Glutose) 15 gm Q15M PRN PO DECREASED GLUCOSE; Start 05/06/17 at 14:30 Glucose (Glutose) 22.5 gm Q15M PRN PO DECREASED GLUCOSE; Start 05/06/17 at 14: 30 Dextrose (D50w Syringe) 25 ml Q15M PRN IV DECREASED GLUCOSE; Start 05/06/17 at 14:30 Dextrose (D50w Syringe) 50 ml Q15M PRN IV DECREASED GLUCOSE; Start 05/06/17 at 14:30 Glucagon (Glucagen) 1 mg Q15M PRN IM DECREASED GLUCOSE; Start 05/06/17 at 14:30 Glucose (Glutose) 15 gm Q15M PRN BUCCAL DECREASED GLUCOSE; Start 05/06/17 at 14 :30 Diagnostic Test (Pha) (Accu-Chek) 1 ea 02 XX ; Start 05/07/17 at 02:00 Patient Own Medication 1 ea DAILY PO Last administered on 05/16/17 09:27; Admin Dose 1 EA; Start 05/08/17 at 12:00; Stop 05/22/17 at 09:01 Apixaban (Eliquis) 5 mg BID PO ; Start 05/17/17 at 09:00 Levofloxacin (Levaquin) 750 mg DAILY@06 NGT Last administered on 05/16/17 06:31 ; Admin Dose 750 MG; Start 05/12/17 at 06:00; Stop 05/17/17 at 05:59 Apixaban (Eliquis) 10 mg BID PO Last administered on 05/16/17 08:59; Admin Dose 10 MG; Start 05/11/17 at 17:23; Stop 05/17/17 at 08:59 Assessment/Plan Chief Complaint/Hosp Course IMP: 1. Acute PE--unprovoked 2. RML mass 3. Resolving hypoxemia RECS: 1. Continues anticoagulation with Eliquis 2. Repeat CT scan, PET scan in 2 weeks time 3. Discharge back to board and care Follow-up with me in the office. Problems: KEVIN HENSLEY MD, [facility] May 16, 2017 12:38
--- NOTE | 2017-05-16 18:12 | DS ---
Date/Time of Note Date/Time of Note DATE: 05/16/17 TIME: 18:05 Discharge Summary Admission/Discharge Info Admit Date/Time May 06, 2017 at 14:11 Discharge Date/Time May 16, 2017 at 14:40 Discharge Diagnosis 1. Acute shortness of breath secondary to #2 : resolved / stable on room air, no further indication for home O2 2. Extensive bilateral acute pulmonary emboli : s/p lovenox, DC with Eliquis 3. Right middle lobe mass suspicious for primary lung cancer without evidence of metastatic disease: Follow-up with pulmonology for PET scan 4. 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 Hypothyroidism: still with suboptimal control. : dosage changed to 100mcg 6. Lactic acidosis likely secondary to respiratory insufficiency: resolved 7. Prediabetes with hemoglobin A1c of 6.2 8. Dyslipidemia 9. Obesity r/o OHS versus SRAVANTHI: needs outpt sleep study 10. Chronic cognitive deficits-resides in a nursing home 11. Mild Pulmonary HTN on Echo Hospital Course Patient is a 51-year-old female presented to the emergency room with shortness of breath. She was evaluated with a CT angiogram and this showed extensive bilateral pulmonary emboli. The patient had a history of head and neck cancer, and she is on chronic chemotherapy for that. However the CT scan done with IV contrast showed a new lung mass that the radiologist felt was a primary lung cancer because of lack of evidence of surrounding metastasis. She was evaluated by hematology oncology as well as pulmonary teams. Hematology oncology wanted her to get a biopsy of this new lung mass, however interventional radiology felt that because of the extensive PE, undertaken a biopsy under anesthesia was dangerous, and also they felt that this new lung mass could be a sequelae of PE or metastasis from her prior cancer. All in all , they felt the patient should be treated for her PE for short period of time after which the CAT scan repeated and if mass was unchanged and she would benefit from tissue biopsy. The insecticide expert agreed with this plan and recommended that patient get a repeat CAT scan versus PET scan in about 2 weeks and hence patient is to follow-up with pulmonology as an outpatient for further diagnostics. The patient was treated with treatment dose heparin and eventually transitioned to oral Eliquis. She has done well and has been transitioned to room air. She is stable, she is ambulating short distances, and she has a caregiver at home. Patient resides in a nursing home and home health was arranged. On day of discharge patient's vitals labs physical exam are stable, she has no further needs for supplemental oxygen the patient was cleared for discharge by pulmonology. . Home Meds Active Scripts Potassium Chloride* (Potassium Chloride*) 8 Meq Capsule.er, 8 MEQ PO DAILY for 30 Days, CAP Prov:JJ BAE . 05/11/17 Furosemide* (Furosemide*) 20 Mg Tablet, 20 MG PO DAILY, #30 [facility] 05/11/17 Levothyroxine Sodium (Levothroid) 100 Mcg Tablet, 100 MCG PO BEFORE BREAKFAST for 30 Days, TAB 2 [facility]. 05/10/17 Docusate Sodium (Dok) 100 Mg Capsule, 100 MG PO Q12 for 30 Days, CAP 2 Refills Prov:JJ BAE . 05/10/17 Aspirin* (Aspirin* EC) 81 Mg Tablet.dr, 81 MG PO DAILY for 30 Days, 2 Refills Prov:JJ BAE . 05/10/17 Nitroglycerin* (Nitrostat*) 0.4 Mg Tab.subl, 1 TAB SL Q5M Y for ANGINA, #10 Prov:JJ BAE . 05/10/17 Atorvastatin (Atorvastatin) 10 Mg Tablet, 10 MG PO HS for 30 Days, TAB 2 Refills Prov:JJ BAE . 05/10/17 Apixaban* (Eliquis*) 5 Mg Tablet, 10 MG PO BID, #13 TAB Prov:JJ BAE . 05/10/17 Apixaban* (Eliquis*) 5 Mg Tablet, 5 MG PO BID for 30 Days, TAB 2 Refills start April 17 2017 Prov:JJ BAE . 05/10/17 Reported Medications [Revlimid 5MG] No Conflict Check, 5 MG PO DAILY 05/05/17 Cholecalciferol (Vitamin D3) 400 Unit Tablet, 400 UNIT PO DAILY, TAB 05/05/17 Vitamin E* (Vitamin E*) 400 Unit Capsule, 400 UNIT PO DAILY, CAP 3//16 Discontinued Reported Medications Levothyroxine Sodium* (Levothyroxine Sodium*) 75 Mcg Tablet, 75 MCG PO BEFORE BREAKFAST, #30 TAB 05/05/17 Follow-up Plan Patient is follow-up with her PCP in 1-2 weeks, is to follow-up with her oncologist as well as pulmonology Primary Care Provider Jack Espinoza Time spent on discharge: > 30 minutes Pending Labs Laboratory Tests Test 05/15/17 21:11 05/16/17 08:10 05/16/17 12:03 Bedside Glucose 127mg/dL (70-220) 108mg/dL (70-220) 106mg/dL (70-220) DAVONTE THOMPSON May 16, 2017 18:12
[2017-05-17] MEDS ORDERED: APIXABAN 5 MG TABLET PO SCH (09:00)
--- NOTE | 2017-05-18 00:02 | CONS ---
Date/Time of Note Date/Time of Note DATE: 05/16/17 TIME: 12:00 VK LE Assessment/Plan Assessment/Plan Chief Complaint/Hosp Course Extensive bilateral acute pulmonary emboli. Lovenox 1 mg/kg subQ b.i.d DC with Eliquis 3.8 x 2.4 cm mass right middle lobe highly suspicious for primary lung cancer. No evidence of metastatic disease in the chest complete staging with CT ABD PULM F-UP- REPEAT CT CHEST IN 2 WE , AFTER CT - WILL DECIDE RE BX Shortness of breath. secondary to pulmonary embolism. 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 OBTAIN AND REVIEW OLD RECORD Lactic acidosis, unclear source. Signs of possible sepsis. Continue broad-spectrum antibiotics Questionable history of thyroid issues. Check thyroid panel, continue levothyroxine. Gastrointestinal prophylaxis. PPI. Deep venous thrombosis prophylaxis. Lovenox INCOMPLETE RECORD OK TO DC F-UP OUTPT Problems: Consultation Date/Type/Reason Admit Date/Time May 06, 2017 at 14:11 Initial Consult Date 05/05/17 Type of Consultation: HEMEON Referring Provider: MANJINDER HOWELL 24 HR Interval Summary Free Text/Dictation ALL NOTED Exam/Review of Systems Vital Signs Vitals Vital Signs Date Time Temp Pulse Resp B/P Pulse Ox O2 Delivery O2 Flow Rate FiO2 05/16/17 08:00 Nasal Cannula 2.0 05/16/17 07:40 98.1 76 18 110/65 93 05/16/17 03:23 30 Exam Exam GENERAL: The patient is lying in bed, answering questions appropriately. No acute distress. HEENT: Pupils equal, round, react to light. Extraocular muscles intact. NECK: Slightly enlarged. Surgical scar noted on the right side of the neck, otherwise supple. LUNGS: Clear to auscultation bilaterally. No wheezes. CARDIOVASCULAR: Tachycardic heart rate but regular. No rubs or gallops. ABDOMEN: Soft, nontender, nondistended. Normal bowel sounds. No rebound or guarding. MUSCULOSKELETAL: No lower extremity edema bilaterally. NEUROLOGIC: No focal deficits. ROSSANA ALARCON MD May 18, 2017 00:02
== END 2017-05-16 14:40 | disposition home health service (06) | DRG 176 ==
LOC: E/R 11:32 → TEL 05-06 14:11 → MS2 05-15 23:18
PROVIDERS: ADMIT Hospitalist; ATTEND Hospitalist
PROC: 4A033R1 Measurement of Arterial Saturation, Peripheral, Percutaneous Approach (ICD-10-PCS; principal; 2017-05-07)
DX: I26.99 Other pulmonary embolism without acute cor pulmonale (principal); E87.2 Acidosis; I27.2 Other secondary pulmonary hypertension; E03.9 Hypothyroidism, unspecified; R73.03 Prediabetes; E78.5 Hyperlipidemia, unspecified; G47.30 Sleep apnea, unspecified; R09.02 Hypoxemia; F09 Unspecified mental disorder due to known physiological condition; R06.89 Other abnormalities of breathing; Z92.21 Personal history of antineoplastic chemotherapy; Z85.89 Personal history of malignant neoplasm of other organs and systems
CPT/HCPCS: 36415; 36600; 71010; 71275; 80048; 80053; 80061; 80076; 80202; 81001; 82803; 82962; 83036; 83605; 83615; 83735; 83880; 84100; 84439; 84443; 84484; 84703; 85025; 85378; 85610; 85730; 87040; 87086; 93005; 93306; 94640; 94660; 94664; 96361; 96372; 96374; 96375; 96376; 97116; 97162; 97166; 97530; J1940; J0696; J1815; J2543; J3370; J7030; J7050; Q9967

== ENCOUNTER 2017-08-16 14:43 | Emergency (ER) | payer MEDICARE, OTHER ==
[~2017-08-16] VITALS: Wt 108.0 kg
[~2017-08-16 14:43] MED LIST changes: +APIX5TAB PO; +ASPI-664 PO; +ATOR10TA65 PO; -AUG875 PO; -CHOL20002 PO; +CHOL400T8 PO; +DOCU-216 PO; +FURO20TA3 PO; -LEVO25TA9 PO; -MULT-853 PO; +NIT4 SL; +POTA8CAP PO; +REVLIMID 5 MG PO; +SYN1 PO
[2017-08-16] MEDS ORDERED: SOD CHLORIDE 0.9% 1,000 ML IV STA (16:13)
[2017-08-16 16:45] LABS: BASOPHIL # 0.1 10^3/ul (0.0-0.1); BASOPHILS % 0.9 % (0.0-2.0); EOSINOPHILS # 0.2 10^3/ul (0.0-0.5); EOSINOPHILS % 3.2 % (0.0-7.0); HEMATOCRIT 34.8 % (37.0-47.0); HEMOGLOBIN 11.4 g/dl (12.0-16.0); LYMPHOCYTES # 1.4 10^3/ul (0.8-2.9); LYMPHOCYTES % 20.5 % (15.0-51.0); MEAN CORPUSCULAR HEMOGLOBIN 29.1 pg (29.0-33.0); MEAN CORPUSCULAR HGB CONC 32.8 g/dl (32.0-37.0); MEAN CORPUSCULAR VOLUME 88.8 fl (82.0-101.0); MEAN PLATELET VOLUME 9.7 fl (7.4-10.4); MONOCYTE # 0.7 10^3/ul (0.3-0.9); MONOCYTES % 9.6 % (0.0-11.0); NEUTROPHIL # 4.5 10^3/ul (1.6-7.5); NEUTROPHILS % 65.5 % (39.0-77.0); PLATELET COUNT 213 10^3/UL (140-415); RED BLOOD COUNT 3.92 10^6/ul (4.20-5.40); RED CELL DISTRIBUTION WIDTH 13.8 % (11.5-14.5); WHITE BLOOD COUNT 6.8 10^3/ul (4.8-10.8)
[2017-08-16 17:07] LABS: INR 1.1; PARTIAL THROMBOPLASTIN TIME 23.6 Sec (25.0-35.0); PROTIME 14.2 Sec (12.2-14.2); PT RATIO 1.1
[2017-08-16 17:15] LABS: ALBUMIN/GLOBULIN RATIO 1.37; BILIRUBIN,INDIRECT 0.8 mg/dl (0-1.1); BILIRUBIN,TOTAL 0.8 mg/dl (0.2-1.3); CALCIUM 9.7 mg/dl (8.4-10.2); CREATININE 0.69 mg/dl (0.44-1.00); TOTAL PROTEIN 6.9 g/dl (6.1-8.1)
--- NOTE | 2017-08-16 17:19 | RADRPT ---
PROCEDURE: US Pelvis. CLINICAL INDICATION: Vaginal bleeding for 3 weeks. TECHNIQUE: The pelvis was evaluated with transabdominal and transvaginal sonography in the axial a nd sagittal planes. COMPARISON: No prior study is available for comparison. FINDINGS: The uterus measures 8.6 x 4.8 x 5.4 cm. There is no uterine enlargement or mass. The endometrium is heterogeneous and thickened measuring 22.5 mm. The ovaries are not visualized. There is no other pel magaly mass or free fluid. IMPRESSION: 1. Heterogeneous and thickened endometrium measuring 22.5 mm. Endometrial sampling should be consid ered. 2. Ovaries not visualized. 3. Otherwise unremarkable pelvic ultrasound. RPTAT: QQ .Chele Castro MD, MD Date Time Electronically viewed and signed by .Chele Castro MD, on 08/16/2017 17:19 .R/
[2017-08-16 17:45] LABS: ADD UMIC YES; UR ASCORBIC ACID NEGATIVE (NEGATIVE); UR BILIRUBIN (Dip) NEGATIVE (NEGATIVE); UR BLOOD (Dip) 3+ mg/dL (NEGATIVE); UR CLARITY SLIGHTLY CLOUDY (CLEAR); UR COLOR YELLOW (YELLOW); UR GLUCOSE (Dip) NEGATIVE (NEGATIVE); UR KETONES (Dip) TRACE mg/dL (NEGATIVE); UR LEUKOCYTE ESTERASE (Dip) NEGATIVE Leu/ul (NEGATIVE); UR NITRITE (Dip) NEGATIVE (NEGATIVE); UR RBC > 182 /HPF (0-5); UR SPECIFIC GRAVITY (Dip) 1.018 (1.003-1.030); UR TOTAL PROTEIN (Dip) 3+ mg/dl (NEGATIVE); UR UROBILINOGEN (Dip) NEGATIVE (NEGATIVE)
--- NOTE | 2017-08-16 18:11 | ERD ---
ER Documentation Chief Complaint Date/Time DATE: 08/16/17 TIME: 18:08 Chief Complaint VAG BLEEDING X2 WEEKS, DENIES PAIN, PT WITH MR HPI Patient is a 51-year-old female who has a history of lung cancer complaining of vaginal bleeding for 3 weeks. She denies any pain or pelvic pain or abdominal pain. No chest pain. No cough or shortness of breath. Denies any dysuria or increased urinary frequency. She states that she went to her OB today and they did ultrasound but she does not have the results and so she wanted to come to the emergency room just to make sure everything was okay. She has no other complaints aside from the bleeding.She takes Eliquis. ROS All systems reviewed and are negative except as per history of present illness. Medications Home Meds Active Scripts Potassium Chloride* (Potassium Chloride*) 8 Meq Capsule.er, 8 MEQ PO DAILY for 30 Days, CAP Prov:JJ BAE. 05/11/17 Furosemide* (Furosemide*) 20 Mg Tablet, 20 MG PO DAILY, #30 TAB Prov:JJ BAE . 05/11/17 Levothyroxine Sodium (Levothroid) 100 Mcg Tablet, 100 MCG PO BEFORE BREAKFAST for 30 Days, TAB 2 [facility] 05/10/17 Docusate Sodium (Dok) 100 Mg Capsule, 100 MG PO Q12 for 30 Days, CAP 2 Refills Prov[facility]. 05/10/17 Aspirin* (Aspirin* EC) 81 Mg Tablet.dr, 81 MG PO DAILY for 30 Days, 2 Refills Prov:JJ BAE . 05/10/17 Nitroglycerin* (Nitrostat*) 0.4 Mg Tab.subl, 1 TAB SL Q5M Y for ANGINA, #10 Prov:JJ BAE . 05/10/17 Atorvastatin (Atorvastatin) 10 Mg Tablet, 10 MG PO HS for 30 Days, TAB 2 Refills Prov:JJ BAE Laura 05/10/17 Apixaban* (Eliquis*) 5 Mg Tablet, 10 MG PO BID, #13 TAB Prov:JJ BAE . 05/10/17 Apixaban* (Eliquis*) 5 Mg Tablet, 5 MG PO BID for 30 Days, TAB 2 Refills start April 17 2017 Prov:JJ BAE 05/10/17 Reported Medications [Revlimid 5MG] No Conflict Check, 5 MG PO DAILY 05/05/17 Cholecalciferol (Vitamin D3) 400 Unit Tablet, 400 UNIT PO DAILY, TAB 05/05/17 Vitamin E* (Vitamin E*) 400 Unit Capsule, 400 UNIT PO DAILY, CAP 01/19/16 Allergies Allergies: Coded Allergies: No Known Allergy (Unverified , 08/16/17) PMhx/Soc History of Surgery: Yes Anesthesia Reaction: No Hx Neurological Disorder: No Hx Respiratory Disorders: No Hx Cardiac Disorders: Yes Hx Psychiatric Problems: No Hx Miscellaneous Medical Probl: Yes (neck tumor s/p resection, R parotid cancer ) Hx Alcohol Use: No Hx Substance Use: No Hx Tobacco Use: No Smoking Status: Never smoker FmHx Family History: No diabetes Physical Exam Vitals Vital Signs Date Time Temp Pulse Resp B/P Pulse Ox O2 Delivery O2 Flow Rate FiO2 08/16/17 14:48 98.3 111 18 135/101 96 Physical Exam INITIAL VITAL SIGNS: Reviewed by me GENERAL: Awake, alert and oriented x 4, well appearing, nontoxic, speaking in full sentences. No acute distress HEAD: Atraumatic NECK: Supple. No masses. Full range of motion. No meningismus. No midline tenderness. EYES: EOMI. PERRL. RESPIRATORY: Clear to auscultation bilaterally. Symmetric chest wall rise. No wheezing or rales. No accessory muscle use. CV: Regular rate and rhythm. No murmurs, rubs, or gallops. ABDOMEN: Soft, non-distended. Nontender. Negative [place]. Negative [place] point tenderness. No CVA tenderness bilaterally. No guarding. No rebound. : Deffered. EXTREMITIES: No clubbing or cyanosis. No edema. Moving all extremities normally. BACK: No midline tenderness to palpation. No step-offs. SKIN: Warm and dry. No rash or petechiae. Result Diagram: 08/16/17 1625 08/16/17 1625 Results 24 hrs Laboratory Tests Test 08/16/17 16:25 08/16/17 16:40 White Blood Count 6.810^3/ul Red Blood Count 3.9210^6/ul Hemoglobin 11.4g/dl Hematocrit 34.8% Mean Corpuscular Volume 88.8fl Mean Corpuscular Hemoglobin 29.1pg Mean Corpuscular Hemoglobin Concent 32.8g/dl Red Cell Distribution Width 13.8% Platelet Count 62038^3/UL Mean Platelet Volume 9.7fl Neutrophils % 65.5% Lymphocytes % 20.5% Monocytes % 9.6% Eosinophils % 3.2% Basophils % 0.9% Nucleated Red Blood Cells % 0.0/100WBC Neutrophils # 4.510^3/ul Lymphocytes # 1.410^3/ul Monocytes # 0.710^3/ul Eosinophils # 0.210^3/ul Basophils # 0.110^3/ul Nucleated Red Blood Cells # 0.010^3/ul Prothrombin Time 14.2Sec Prothrombin Time Ratio 1.1 INR International Normalized Ratio 1.10 Activated Partial Thromboplast Time 23.6Sec Sodium Level 140mmol/L Potassium Level 4.0mmol/L Chloride Level 104mmol/L Carbon Dioxide Level 25mmol/L Anion Gap 15 Blood Urea Nitrogen 8mg/dl Creatinine 0.69mg/dl Glucose Level 137mg/dl Calcium Level 9.7mg/dl Total Bilirubin 0.8mg/dl Direct Bilirubin 0.00mg/dl Indirect Bilirubin 0.8mg/dl Aspartate Amino Transf (AST/SGOT) 14IU/L Alanine Aminotransferase (ALT/SGPT) 34IU/L Alkaline Phosphatase 88IU/L Total Protein 6.9g/dl Albumin 4.0g/dl Globulin 2.90g/dl Albumin/Globulin Ratio 1.37 Urine Color YELLOW Urine Clarity SLIGHTLY CLOUDY Urine pH 5.0 Urine Specific [place] 1.018 Urine Ketones TRACEmg/dL Urine Nitrite NEGATIVEmg/dL Urine Bilirubin NEGATIVEmg/dL Urine Urobilinogen NEGATIVEmg/dL Urine Leukocyte Esterase NEGATIVELeu/ul Urine Microscopic RBC > 182/HPF Urine Microscopic WBC 0/HPF Urine Hemoglobin 3+mg/dL Urine Glucose NEGATIVEmg/dL Urine Total Protein 3+mg/dl Current Medications Medications (Trade) Dose Ordered Sig/Servando Route PRN Reason Start Time Stop Time Status Last Admin Dose Admin Sodium Chloride (NS) 1,000 ml @ 1,000 mls/hr Q1H STAT IV 08/16/17 16:13 08/16/17 17:12 DC 08/16/17 17:02 Procedures/MDM Patient presents with dysfunctional uterine bleeding. She is afebrile has no complaints other than the vaginal bleeding. She has no cough, no chest pain, no shortness of breath, no abdominal pain, no pelvic pain, no urinary symptoms. She is tachycardic 111 and blood pressure is elevated 135/101. She was given IV fluids. Blood work was drawn and there is only mild low hemoglobin of 11.4. Rest of her blood work is unremarkable. Ultrasound shows thickened endometrium and recommended sampling. She was given copies of everything so she can follow with primary care. I reviewed the case with and we agree she is stable for outpatient management. Pulse improved to 97 at discharge. Patient counseled regarding my diagnostic impression and care plan. Prior to discharge all questions answered. Pt agrees with treatment plan and understands strict return precautions. Pt is instructed to follow up with primary care provider within 24-48 hours. Precautionary instructions provided including instructions to return to the ER if not improving or for any worsening or changing symptoms or concerns. Departure Diagnosis: Primary Impression: Dysfunctional uterine bleeding Condition: Stable Patient Instructions: Dysfunctional Uterine Bleeding Additional Instructions: Call your primary care doctor TOMORROW for an appointment during the next 1-2 days.See the doctor sooner or return here if your condition worsens before your appointment time. MANINDER SYED PA-C Aug 16, 2017 18:11
[2017-08-16 18:32] VITALS: BP 128/82; PULSE 66; RESP 18
== END 2017-08-16 18:33 | disposition home or self-care (01) ==
LOC: FTE 14:43
DX: N93.8 Other specified abnormal uterine and vaginal bleeding (principal); Z79.82 Long term (current) use of aspirin; Z79.01 Long term (current) use of anticoagulants; Z85.858 Personal history of malignant neoplasm of other endocrine glands
CPT/HCPCS: 36415; 76830; 76856; 80053; 81001; 85025; 85610; 85730; 99285; J7030